=== PATIENT | male | born 1955 | race Caucasian/White ===

== ENCOUNTER → 2018-07-21 12:44 | Outpatient (CLI) | payer OTHER, SELFPAY ==
[2018-07-21 13:27] LABS: Hematocrit 43.3 % (41-53); Hemoglobin 14.8 g/dL (13.5-17.5); Mean Corpuscular HGB Conc 34.1 % (30-36); Mean Corpuscular Hemoglobin 32.9 PG (26-34); Mean Corpuscular Volume 96.4 fL (80-100); Platelet Count 236 X10^3/uL (150-400); Red Blood Cell Count 4.49 X10^6/uL (4.5-5.9); Red Cell Distribution Width 13.2 % (11.6-14.8); White Blood Cell Count 5.1 X10^3/uL (4.5-11.0)
[2018-07-21 13:53] LABS: Alanine Aminotransferase 33 IU/L (21-72); Albumin 4.6 g/dL (3.5-5.0); Albumin Globulin Ratio 1.4 (1.0-2.8); Alkaline Phosphatase 52 U/L (38-126); Aspartate Aminotransferase 27 IU/L (17-59); Bilirubin Total 0.4 mg/dL (0.2-1.3); Blood Urea Nitrogen 21 mg/dL (9-20); Calcium 9.4 mg/dL (8.4-10.2); Carbon Dioxide 27 mmol/L (22-32); Chloride 101 mmol/L (98-107); Cholesterol 218 mg/dL (140-199); Estimated Glomerular Filt Rate > 60.0 mL/min (>60); Globulin 3.4 g/dL (1.7-4.1); Glucose 135 mg/dL (80-110); HDL Cholesterol 41 mg/dL (40-60); HEMOLYSIS < 15 (0-50); LDL Cholesterol Calculated 131 mg/dL (<100); Potassium 4.2 mmol/L (3.4-5.1); Sodium 142 mmol/L (137-145); Triglycerides 228 mg/dL (35-150)
[2018-07-21 14:20] LABS: Prostate Specific Antigen Scrn 1.04 ng/mL (0.1-4.0)
== END ==
PROVIDERS: PCP Student in an Organized Health Care Education/Training Program; Visit Provider Student in an Organized Health Care Education/Training Program
DX: E55.9 Vitamin D deficiency, unspecified (principal); J30.2 Other seasonal allergic rhinitis; K21.9 Gastro-esophageal reflux disease without esophagitis; M79.7 Fibromyalgia; Z79.1 Long term (current) use of non-steroidal anti-inflammatories (NSAID); R39.11 Hesitancy of micturition; Z12.5 Encounter for screening for malignant neoplasm of prostate; Z13.220 Encounter for screening for lipoid disorders
CPT/HCPCS: 36415; 80053; 80061; 82306; 85027; G0103

== ENCOUNTER 2018-08-11 14:56 | Emergency (ER) | payer OTHER, SELFPAY ==
[2018-08-11 15:02] VITALS: BP 154/90; PULSE 76; RESP 15; TEMP 36.9; O2SAT 100; BMI 27.1
--- NOTE | 2018-08-11 15:58 | DI.CT.S_ITS ---
PROCEDURE: CT HEAD/BRAIN WO CON INDICATIONS: headache 2 weeks worsening TECHNIQUE: Noncontrast 4.5 mm thick angled axial sections acquired from the foramen magnum to the vertex, with coronal and sagittal reformats. For radiation dose reduction, the following was used: automated exposure control, adjustment of mA and/or kV according to patient size. COMPARISON: None. FINDINGS: Image quality: Excellent. CSF spaces: Basal cisterns are patent. No extra-axial fluid collections. The ventricles are symmetric in size and shape. Brain: No intracranial bleeds or masses. There is cerebral volume loss for age, with resultant ventricular and sulcal prominence. There are periventricular and deep white matter chronic small vessel ischemic changes. There is intracranial internal carotid artery atherosclerosis. Skull and face: Calvarium and visualized facial bones appear intact, without suspicious lesions. Sinuses: Visualized sinuses and mastoids are clear. IMPRESSION: No acute intracranial disease process. No intracranial hemorrhage. No abnormal intracranial mass. Dictated by: Gabriela Alvarez MD, PhD on 08/11/2018 at 16:16 Approved by: Gabriela Alvarez MD, PhD on 08/11/2018 at 16:18
[2018-08-11 16:22] LABS: Add Manual Diff / Slide Review NO; Basophils Percent Auto 0.5 % (0-2); Eosinophils Percent Auto 2.3 % (2-4); Hematocrit 41.2 % (41-53); Hemoglobin 14.1 g/dL (13.5-17.5); Lymphocytes Percent Auto 25.7 % (25-40); Mean Corpuscular HGB Conc 34.3 % (30-36); Mean Corpuscular Volume 96.2 fL (80-100); Monocytes Percent Auto 16.6 % (3-14); Neutrophils Absolute Auto 3500 /uL (3000-5900); Neutrophils Percent Auto 54.9 % (50-75); Platelet Count 280 X10^3/uL (150-400); Red Blood Cell Count 4.28 X10^6/uL (4.5-5.9); Red Cell Distribution Width 12.9 % (11.6-14.8); White Blood Cell Count 6.4 X10^3/uL (4.5-11.0)
[2018-08-11 16:29] VITALS: BP 154/90; PULSE 76
[2018-08-11] MEDS: SODIUM CHLORIDE 0.9% 1,000 ML 1000 ML IV (16:29)
[2018-08-11] MEDS: PROCHLORPERAZINE 10 MG/2 ML VIAL IV (16:29)
[2018-08-11] MEDS: diphenhydrAMINE 50 MG/ML VIAL 25 MG IV (16:30)
[2018-08-11] MEDS: KETOROLAC 60 MG/2 ML VIAL 30 MG IV (16:30)
[2018-08-11 16:33] LABS: BUN Creatinine Ratio 22.9 (6-22); Blood Urea Nitrogen 16 mg/dL (9-20); Calcium 9.3 mg/dL (8.4-10.2); Carbon Dioxide 30 mmol/L (22-32); Chloride 100 mmol/L (98-107); Estimated Glomerular Filt Rate > 60.0 mL/min (>60); Glucose 103 mg/dL (80-110); HEMOLYSIS 19 (0-50); Potassium 4.1 mmol/L (3.4-5.1); Sodium 139 mmol/L (137-145)
--- NOTE | 2018-08-11 16:43 | ED.HA ---
HPI - Headache General Chief Complaint: Headache Stated Complaint: Severe headache x2 weeks Time Seen by Provider: 08/11/18 15:47 Source: patient Mode of arrival: ambulatory Limitations: no limitations History of Present Illness HPI Narrative: The patient is a 8-year-old male who presents with headache. He does have a history of migraine headaches he gets bad once 3 to 4 times a year for which he takes magnesium sulfate for. He says that usually helps. This headache has been ongoing since right before Thanksgiving so for at least 2 weeks. It has never gone completely away it waxes and wanes. He initially was quite nauseated but no vomiting. He is quite sensitive to light the light seems to trigger it. He has been taking Tylenol and ibuprofen without any relief. MD Complaint: headache and migraine Related Data Home Medications Medication Instructions Recorded Confirmed ibuprofen [Advil Liqui-Gel] 2 - 4 tab PO DAILY #0 05/07/17 08/11/18 multivitamin [Multiple Vitamins] 1 tab PO DAILY #0 05/07/17 08/11/18 polyethylene glycol 3350 [Miralax] 17 g PO PRN PRN #0 05/07/17 08/11/18 cyclobenzaprine 2 tab PO BEDTIME 08/11/18 08/11/18 famotidine [Pepcid] 40 mg PO BEDTIME 08/11/18 08/11/18 fluticasone [Flonase Allergy 2 spray INTRANASAL DAILY PRN 08/11/18 08/11/18 Relief] hydrocodone-acetaminophen [[place]] 1 tab PO QDAY PRN 08/11/18 08/11/18 rizatriptan [Maxalt] 1 dose PO PRN PRN 08/11/18 08/11/18 Previous Rx's Medication Instructions Recorded atorvastatin 40 mg tablet 40 mg PO BEDTIME #30 tab 07/22/18 Allergies Allergy/AdvReac Type Severity Reaction Status Date / Time No Known Drug Allergies Allergy Verified 07/21/18 11:41 Review of Systems Review of Systems GENERAL: Denies chills, fatigue, malaise, fever, sweats, travel HEENT: Denies sinus pain, ear pain, sore throat, difficulty swallowing, neck pain RESPIRATORY: Denies dyspnea, cough, wheezing, hemoptysis, sputum. CARDIOVASCULAR: Denies chest pain, palpitations, orthopnea, edema GASTROINTESTINAL: Denies nausea, vomiting, abdominal pain, diarrhea, constipation, melena. : Denies dysuria, frequency, incontinence, hematuria, urinary retention, flank pain. MUSCULOSKELETAL: Denies weakness, joint pain, or bony pain SKIN: No rash, no erythema, no pruritus NEUROLOGIC: See HPI PSYCHIATRIC: No concerning psychosocial issues. 12 point review of systems is negative except for those stated above and HPI [facility] Medical History Abnormal CXR (chest x-ray) (Chronic 2016) Chronic back pain (Chronic 1983) Chronic rhinitis (Chronic 2009) Fibromyalgia (Chronic 1983) GERD (gastroesophageal reflux disease) (Chronic 2008) Hayfever (Chronic 1987) Hemorrhoids (Chronic 1999) IBS (irritable bowel syndrome) (Chronic 2003) Migraines (Chronic 2003) Muscle pain, myofascial (Chronic 1987) Plantar fasciitis (Chronic 1983) Pulmonary nodule (Chronic 2016) Sleep apnea (Chronic 2006) Precancerous lesion (Resolved 2015) Retinal detachment (Resolved 2008) Surgical History History of colonoscopy (Resolved ~2013) History of nasal surgery (Resolved 2008) History of nasal surgery (Resolved 2014) History of repair of retinal defect by laser photocoagulation (Resolved 2008) History of shoulder surgery (Resolved 2000) Family History Brother Age: 64 Hypothyroid Brother Age: 62 Hypothyroid Father Arthritis Stroke Rheumatoid arthritis Chronic pain Grandfather Heart disease Stroke Mother Age: 88 Hypothyroid Hypertension High cholesterol CKD (chronic kidney disease) Arthritis Grandfather Heart disease Stroke Sister Age: 58 Hypothyroid Sister Age: 53 Hypothyroid Grandmother No problems noted. Grandmother No problems noted. Social History Smoking Status: Never smoker alcohol intake: current substance use type: does not use Exam Initial Vital Signs Initial Vital Signs: Vital Signs Temperature 98.5 F 08/11/18 15:02 Pulse Rate 76 08/11/18 15:02 Respiratory Rate 15 08/11/18 15:02 Blood Pressure 154/90 H 08/11/18 15:02 Pulse Oximetry 100 08/11/18 15:02 GENERAL: Male sitting in slightly darkened room no acute distress HEENT: Head atraumatic,EOMI, pupils reactive, neck is supple no JVD CARDIOVASCULAR: Regular rate and rhythm without murmurs, rubs or gallops. RESPIRATORY: Breath sounds equal bilaterally, no wheezes rales or rhonchi. ABDOMEN: Soft, nontender. Normoactive bowel sounds all 4 quadrants. No guarding or rebound. EXTREMITIES: Normal range of motion, no clubbing or edema. Neurovascularly intact NEUROLOGICAL: Alert and oriented x4.Normal gait and speech. Cranial nerves II through XII grossly intact. Good [id number], good [id number], strength equal bilaterally, no dysarthria or aphasia, sensation in tact to soft touch bilaterally, no visual changes, no facial droop SKIN: Warm, dry, no laceration, no petechiae, no rashes or lesions. Scores NIH Stroke Scale Level of Conciousness: Alert, keenly responsive Ask month/age: Answers both questions correctly. Open/close eyes, close hand: Performs both tasks correctly Best gaze horizontal: Normal Visual lugo: No visual loss Facial palsy: Normal symetrical movement Left arm drift: No drift for full 10 sec Right arm drift: No drift for full 10 sec Left leg drift: No drift for full 10 sec Right leg drift: No drift for full 10 sec Limb ataxia: Absent Sensory on face/arms/legs: Normal, no sensory loss Best language: No aphasia, normal Dysarthria: Normal Extinction or inattention: No abnormality Total NIH Stroke scale score: 0 Course Orders Ordered: ED Orders 08/11/18 15:58 CT head/brain wo con Stat 08/11/18 16:10 Basic Metabolic Panel Stat Complete Blood Count AUTO DIFF Stat Discontinued Medications Diphenhydramine HCl (Benadryl) 25 mg IV NOW ONE Stop: 08/11/18 15:57 Last Admin: 08/11/18 16:30 Dose: 25 mg Sodium Chloride (Normal Saline 0.9%) 1,000 mls @ 1,000 mls/hr IV BOLUS ONE Stop: 08/11/18 16:55 Last Admin: 08/11/18 16:29 Dose: 1,000 mls/hr Ketorolac Tromethamine (Toradol) 30 mg IV NOW ONE Stop: 08/11/18 15:57 Last Admin: 08/11/18 16:30 Dose: 30 mg Prochlorperazine (Compazine) 10 mg IV NOW ONE Stop: 08/11/18 15:57 Last Admin: 08/11/18 16:29 Dose: 10 mg Vital Signs - 8 hr 08/11/18 15:02 08/11/18 16:29 08/11/18 17:24 Temperature 98.5 F Pulse Rate 76 76 67 Respiratory Rate 15 15 Blood Pressure 154/90 H 154/90 H 151/77 H Pulse Oximetry 100 MDM - Headache Lab Data Attestation: I reviewed the patient's lab results. Result diagrams: 08/11/18 16:10 08/11/18 16:10 Lab Results 08/11/18 08/11/18 Range/Units 16:10 16:10 WBC 6.4 (4.5-11.0) X10^3/uL RBC 4.28 L (4.5-5.9) X10^6/uL Hgb 14.1 (13.5-17.5) g/dL Hct 41.2 (41-53) % MCV 96.2 (80-100) fL MCH 33.0 (26-34) PG MCHC 34.3 (30-36) % RDW 12.9 (11.6-14.8) % Plt Count 280 (150-400) X10^3/uL Neut % (Auto) 54.9 (50-75) % Lymph % (Auto) 25.7 (25-40) % [place] % (Auto) 16.6 H (3-14) % Eos % (Auto) 2.3 (2-4) % Baso % (Auto) 0.5 (0-2) % Neut # (Auto) 3500 (7289-1159) /uL Sodium 139 (137-145) mmol/L Potassium 4.1 (3.4-5.1) mmol/L Chloride 100 (98-107) mmol/L Carbon Dioxide 30 (22-32) mmol/L BUN 16 (9-20) mg/dL Creatinine 0.70 (0.66-1.25) mg/dL Estimated GFR > 60.0 (>60) mL/min BUN/Creatinine Ratio 22.9 H (6-22) Glucose 103 (80-110) mg/dL Calcium 9.3 (8.4-10.2) mg/dL Imaging Data Chest x-ray: Radiologist's impression: PROCEDURE: CT HEAD/BRAIN WO CON INDICATIONS: headache 2 weeks worsening TECHNIQUE: Noncontrast 4.5 mm thick angled axial sections acquired from the foramen magnum to the vertex, with coronal and sagittal reformats. For radiation dose reduction, the following was used: automated exposure control, adjustment of mA and/or kV according to patient size. COMPARISON: None. FINDINGS: Image quality: Excellent. CSF spaces: Basal cisterns are patent. No extra-axial fluid collections. The ventricles are symmetric in size and shape. Brain: No intracranial bleeds or masses. There is cerebral volume loss for age, with resultant ventricular and sulcal prominence. There are periventricular and deep white matter chronic small vessel ischemic changes. There is intracranial internal carotid artery atherosclerosis. Skull and face: Calvarium and visualized facial bones appear intact, without suspicious lesions. Sinuses: Visualized sinuses and mastoids are clear. IMPRESSION: No acute intracranial disease process. No intracranial hemorrhage. No abnormal intracranial mass. Dictated by: Gabriela Alvarez MD, PhD on 08/11/2018 at 16:16 [facility] Narrative Medical decision making narrative: Patient's headache is overall feeling much better. He feels like he is ready and able to go home. He is given headache clinic information. Discharge Plan Departure Patient Disposition: Home Clinical Impression: Headache, migraine Discharge Date/Time: 08/11/18 17:25 Interventions: ED Discharge Assessment Last Done: 08/11/18 17:24 Instructions: Migraine -- Adult Activity Restrictions/Additional Instructions: *You have been diagnosed with migraine headache *What to do: Head CT and blood work within normal limits *Continue to take medications as directed *Follow up with your primary care provider in 2-3 days *Return to ER if you should have worsening headache, weakness, persistent vomiting or any new, worsening or concerning symptoms Prescriptions: No Action multivitamin [Multiple Vitamins] 1 EACH tablet 1 tab PO DAILY Qty: 0 RF: 0 polyethylene glycol 3350 [Miralax] 17 GM powder in packet 17 g PO PRN PRN (Reason: Constipation) Qty: 0 RF: 0 ibuprofen [Advil Liqui-Gel] 200 MG capsule 2 - 4 tab PO DAILY Qty: 0 RF: 0 atorvastatin 40 mg tablet 40 mg PO BEDTIME Qty: 30 RF: 5 cyclobenzaprine 10 MG tablet 2 tab PO BEDTIME RF: 0 hydrocodone-acetaminophen [[place]] 5-325 mg tablet 1 tab PO QDAY PRN (Reason: Breakthrough Pain) RF: 0 famotidine [Pepcid] 40 mg tablet 40 mg PO BEDTIME RF: 0 fluticasone [Flonase Allergy Relief] 9.9 ML spray,suspension 2 spray Intranasal DAILY PRN (Reason: Allergy Symptoms) RF: 0 rizatriptan [Maxalt] 10 mg Tablet 1 dose PO PRN PRN (Reason: Migraine Headache) RF: 0 Referrals: Matthew Guzman MD [Primary Care Provider] -
--- NOTE | 2018-08-11 16:49 | ED_ITS ---
HPI - Headache General Chief Complaint: Headache Stated Complaint: Severe headache x2 weeks Time Seen by Provider: 08/11/18 15:47 Source: patient Mode of arrival: ambulatory Limitations: no limitations History of Present Illness HPI Narrative: The patient is a 8-year-old male who presents with headache. He does have a history of migraine headaches he gets bad once 3 to 4 times a year for which he takes magnesium sulfate for. He says that usually helps. This headache has been ongoing since right before Thanksgiving so for at least 2 weeks. It has never gone completely away it waxes and wanes. He initially was quite nauseated but no vomiting. He is quite sensitive to light the light seems to trigger it. He has been taking Tylenol and ibuprofen without any relief. MD Complaint: headache and migraine Related Data Home Medications Medication Instructions Recorded Confirmed ibuprofen [Advil Liqui-Gel] 2 - 4 tab PO DAILY #0 05/07/17 08/11/18 multivitamin [Multiple Vitamins] 1 tab PO DAILY #0 05/07/17 08/11/18 polyethylene glycol 3350 [Miralax] 17 g PO PRN PRN #0 05/07/17 08/11/18 cyclobenzaprine 2 tab PO BEDTIME 08/11/18 08/11/18 famotidine [Pepcid] 40 mg PO BEDTIME 08/11/18 08/11/18 fluticasone [Flonase Allergy 2 spray INTRANASAL DAILY PRN 08/11/18 08/11/18 Relief] hydrocodone-acetaminophen [[place]] 1 tab PO QDAY PRN 08/11/18 08/11/18 rizatriptan [Maxalt] 1 dose PO PRN PRN 08/11/18 08/11/18 Previous Rx's Medication Instructions Recorded atorvastatin 40 mg tablet 40 mg PO BEDTIME #30 tab 07/22/18 Allergies Allergy/AdvReac Type Severity Reaction Status Date / Time No Known Drug Allergies Allergy Verified 07/21/18 11:41 Review of Systems Review of Systems GENERAL: Denies chills, fatigue, malaise, fever, sweats, travel HEENT: Denies sinus pain, ear pain, sore throat, difficulty swallowing, neck pain RESPIRATORY: Denies dyspnea, cough, wheezing, hemoptysis, sputum. CARDIOVASCULAR: Denies chest pain, palpitations, orthopnea, edema GASTROINTESTINAL: Denies nausea, vomiting, abdominal pain, diarrhea, constipation, melena. : Denies dysuria, frequency, incontinence, hematuria, urinary retention, flank pain. MUSCULOSKELETAL: Denies weakness, joint pain, or bony pain SKIN: No rash, no erythema, no pruritus NEUROLOGIC: See HPI PSYCHIATRIC: No concerning psychosocial issues. 12 point review of systems is negative except for those stated above and HPI [facility] Medical History Abnormal CXR (chest x-ray) (Chronic 2016) Chronic back pain (Chronic 1983) Chronic rhinitis (Chronic 2009) Fibromyalgia (Chronic 1983) GERD (gastroesophageal reflux disease) (Chronic 2008) Hayfever (Chronic 1987) Hemorrhoids (Chronic 1999) IBS (irritable bowel syndrome) (Chronic 2003) Migraines (Chronic 2003) Muscle pain, myofascial (Chronic 1987) Plantar fasciitis (Chronic 1983) Pulmonary nodule (Chronic 2016) Sleep apnea (Chronic 2006) Precancerous lesion (Resolved 2015) Retinal detachment (Resolved 2008) Surgical History History of colonoscopy (Resolved ~2013) History of nasal surgery (Resolved 2008) History of nasal surgery (Resolved 2014) History of repair of retinal defect by laser photocoagulation (Resolved 2008) History of shoulder surgery (Resolved 2000) Family History Brother Age: 64 Hypothyroid Brother Age: 62 Hypothyroid Father Arthritis Stroke Rheumatoid arthritis Chronic pain Grandfather Heart disease Stroke Mother Age: 88 Hypothyroid Hypertension High cholesterol CKD (chronic kidney disease) Arthritis Grandfather Heart disease Stroke Sister Age: 58 Hypothyroid Sister Age: 53 Hypothyroid Grandmother No problems noted. Grandmother No problems noted. Social History Smoking Status: Never smoker alcohol intake: current substance use type: does not use Exam Initial Vital Signs Initial Vital Signs: Vital Signs Temperature 98.5 F 08/11/18 15:02 Pulse Rate 76 08/11/18 15:02 Respiratory Rate 15 08/11/18 15:02 Blood Pressure 154/90 H 08/11/18 15:02 Pulse Oximetry 100 08/11/18 15:02 GENERAL: Male sitting in slightly darkened room no acute distress HEENT: Head atraumatic,EOMI, pupils reactive, neck is supple no JVD CARDIOVASCULAR: Regular rate and rhythm without murmurs, rubs or gallops. RESPIRATORY: Breath sounds equal bilaterally, no wheezes rales or rhonchi. ABDOMEN: Soft, nontender. Normoactive bowel sounds all 4 quadrants. No guarding or rebound. EXTREMITIES: Normal range of motion, no clubbing or edema. Neurovascularly intact NEUROLOGICAL: Alert and oriented x4.Normal gait and speech. Cranial nerves II through XII grossly intact. Good [id number], good [id number], strength equal bilaterally, no dysarthria or aphasia, sensation in tact to soft touch bilaterally, no visual changes, no facial droop SKIN: Warm, dry, no laceration, no petechiae, no rashes or lesions. Scores NIH Stroke Scale Level of Conciousness: Alert, keenly responsive Ask month/age: Answers both questions correctly. Open/close eyes, close hand: Performs both tasks correctly Best gaze horizontal: Normal Visual lugo: No visual loss Facial palsy: Normal symetrical movement Left arm drift: No drift for full 10 sec Right arm drift: No drift for full 10 sec Left leg drift: No drift for full 10 sec Right leg drift: No drift for full 10 sec Limb ataxia: Absent Sensory on face/arms/legs: Normal, no sensory loss Best language: No aphasia, normal Dysarthria: Normal Extinction or inattention: No abnormality Total NIH Stroke scale score: 0 Course Orders Ordered: ED Orders 08/11/18 15:58 CT head/brain wo con Stat 08/11/18 16:10 Basic Metabolic Panel Stat Complete Blood Count AUTO DIFF Stat Discontinued Medications Diphenhydramine HCl (Benadryl) 25 mg IV NOW ONE Stop: 08/11/18 15:57 Last Admin: 08/11/18 16:30 Dose: 25 mg Sodium Chloride (Normal Saline 0.9%) 1,000 mls @ 1,000 mls/hr IV BOLUS ONE Stop: 08/11/18 16:55 Last Admin: 08/11/18 16:29 Dose: 1,000 mls/hr Ketorolac Tromethamine (Toradol) 30 mg IV NOW ONE Stop: 08/11/18 15:57 Last Admin: 08/11/18 16:30 Dose: 30 mg Prochlorperazine (Compazine) 10 mg IV NOW ONE Stop: 08/11/18 15:57 Last Admin: 08/11/18 16:29 Dose: 10 mg Vital Signs - 8 hr 08/11/18 15:02 08/11/18 16:29 08/11/18 17:24 Temperature 98.5 F Pulse Rate 76 76 67 Respiratory Rate 15 15 Blood Pressure 154/90 H 154/90 H 151/77 H Pulse Oximetry 100 MDM - Headache Lab Data Attestation: I reviewed the patient's lab results. Result diagrams: 08/11/18 16:10 08/11/18 16:10 Lab Results 08/11/18 08/11/18 Range/Units 16:10 16:10 WBC 6.4 (4.5-11.0) X10^3/uL RBC 4.28 L (4.5-5.9) X10^6/uL Hgb 14.1 (13.5-17.5) g/dL Hct 41.2 (41-53) % MCV 96.2 (80-100) fL MCH 33.0 (26-34) PG MCHC 34.3 (30-36) % RDW 12.9 (11.6-14.8) % Plt Count 280 (150-400) X10^3/uL Neut % (Auto) 54.9 (50-75) % Lymph % (Auto) 25.7 (25-40) % [place] % (Auto) 16.6 H (3-14) % Eos % (Auto) 2.3 (2-4) % Baso % (Auto) 0.5 (0-2) % Neut # (Auto) 3500 (5160-1975) /uL Sodium 139 (137-145) mmol/L Potassium 4.1 (3.4-5.1) mmol/L Chloride 100 (98-107) mmol/L Carbon Dioxide 30 (22-32) mmol/L BUN 16 (9-20) mg/dL Creatinine 0.70 (0.66-1.25) mg/dL Estimated GFR > 60.0 (>60) mL/min BUN/Creatinine Ratio 22.9 H (6-22) Glucose 103 (80-110) mg/dL Calcium 9.3 (8.4-10.2) mg/dL Imaging Data Chest x-ray: Radiologist's impression: PROCEDURE: CT HEAD/BRAIN WO CON INDICATIONS: headache 2 weeks worsening TECHNIQUE: Noncontrast 4.5 mm thick angled axial sections acquired from the foramen magnum to the vertex, with coronal and sagittal reformats. For radiation dose reduction, the following was used: automated exposure control, adjustment of mA and/or kV according to patient size. COMPARISON: None. FINDINGS: Image quality: Excellent. CSF spaces: Basal cisterns are patent. No extra-axial fluid collections. The ventricles are symmetric in size and shape. Brain: No intracranial bleeds or masses. There is cerebral volume loss for age , with resultant ventricular and sulcal prominence. There are periventricular and deep white matter chronic small vessel ischemic changes. There is intracranial internal carotid artery atherosclerosis. Skull and face: Calvarium and visualized facial bones appear intact, without suspicious lesions. Sinuses: Visualized sinuses and mastoids are clear. IMPRESSION: No acute intracranial disease process. No intracranial hemorrhage. No abnormal intracranial mass. Dictated by: Gabriela Alvarez MD, PhD on 08/11/2018 at 16:16 [facility] Narrative Medical decision making narrative: Patient's headache is overall feeling much better. He feels like he is ready and able to go home. He is given headache clinic information. Discharge Plan Departure Patient Disposition: Home Clinical Impression: Headache, migraine Discharge Date/Time: 08/11/18 17:25 Interventions: ED Discharge Assessment Last Done: 08/11/18 17:24 Instructions: Migraine -- Adult Activity Restrictions/Additional Instructions: *You have been diagnosed with migraine headache *What to do: Head CT and blood work within normal limits *Continue to take medications as directed *Follow up with your primary care provider in 2-3 days *Return to ER if you should have worsening headache, weakness, persistent vomiting or any new, worsening or concerning symptoms Prescriptions: No Action multivitamin [Multiple Vitamins] 1 EACH tablet 1 tab PO DAILY Qty: 0 RF: 0 polyethylene glycol 3350 [Miralax] 17 GM powder in packet 17 g PO PRN PRN (Reason: Constipation) Qty: 0 RF: 0 ibuprofen [Advil Liqui-Gel] 200 MG capsule 2 - 4 tab PO DAILY Qty: 0 RF: 0 atorvastatin 40 mg tablet 40 mg PO BEDTIME Qty: 30 RF: 5 cyclobenzaprine 10 MG tablet 2 tab PO BEDTIME RF: 0 hydrocodone-acetaminophen [[place]] 5-325 mg tablet 1 tab PO QDAY PRN (Reason: Breakthrough Pain) RF: 0 famotidine [Pepcid] 40 mg tablet 40 mg PO BEDTIME RF: 0 fluticasone [Flonase Allergy Relief] 9.9 ML spray,suspension 2 spray Intranasal DAILY PRN (Reason: Allergy Symptoms) RF: 0 rizatriptan [Maxalt] 10 mg Tablet 1 dose PO PRN PRN (Reason: Migraine Headache) RF: 0 Referrals: Matthew Guzman MD [Primary Care Provider] -
[2018-08-11 17:24] VITALS: BP 151/77; PULSE 67; RESP 15
--- NOTE | 2018-08-24 08:56 | PC.NURSE ---
Normal Saline IV finished at 1700 08/11, 1000 mls infused.
== END 2018-08-11 17:25 | disposition home or self-care (01) ==
PROVIDERS: Emergency Provider Emergency Medicine; PCP Student in an Organized Health Care Education/Training Program
DX: G43.909 Migraine, unspecified, not intractable, without status migrainosus (principal)
CPT/HCPCS: 36591; 70450; 80048; 85025; 96361; 96374; 96375; 99283; 99284; J0780; J1200; J1885

== ENCOUNTER → 2018-10-28 14:35 | Outpatient (CLI) | payer OTHER, SELFPAY ==
[2018-10-28 15:12] LABS: Alanine Aminotransferase 38 IU/L (21-72); Albumin 4.5 g/dL (3.5-5.0); Albumin Globulin Ratio 1.4 (1.0-2.8); Alkaline Phosphatase 50 U/L (38-126); Aspartate Aminotransferase 26 IU/L (17-59); Bilirubin Total 0.5 mg/dL (0.2-1.3); Bilirubin Unconjugated 0.3 mg/dL (0.0-1.1); Cholesterol 128 mg/dL (140-199); Globulin 3.2 g/dL (1.7-4.1); HDL Cholesterol 33 mg/dL (40-60); HEMOLYSIS < 15 (0-50); LDL Cholesterol Calculated 50 mg/dL (<100); Total Protein 7.7 g/dL (6.3-8.2); Triglycerides 227 mg/dL (35-150)
== END ==
PROVIDERS: PCP Student in an Organized Health Care Education/Training Program; Visit Provider Student in an Organized Health Care Education/Training Program
DX: E78.2 Mixed hyperlipidemia (principal); Z79.899 Other long term (current) drug therapy
CPT/HCPCS: 36415; 80061; 80076

== ENCOUNTER → 2019-01-02 10:05 | Outpatient (CLI) | payer OTHER, SELFPAY ==
[2019-01-02 11:15] LABS: Cholesterol 212 mg/dL (140-199); HDL Cholesterol 38 mg/dL (40-60); LDL Cholesterol Calculated 136 mg/dL (<100); Triglycerides 192 mg/dL (35-150)
[2019-01-04 20:04] LABS: Fecal Immunochemical Test NOT DETECTED (NOT DETECTED)
== END ==
PROVIDERS: PCP Student in an Organized Health Care Education/Training Program; Visit Provider Student in an Organized Health Care Education/Training Program
DX: Z12.11 Encounter for screening for malignant neoplasm of colon (principal); E78.2 Mixed hyperlipidemia
CPT/HCPCS: 36415; 80061; 82274

== ENCOUNTER → 2019-06-07 08:23 | Outpatient (CLI) | payer OTHER, SELFPAY ==
--- NOTE | 2019-06-07 08:24 | DI.US.S_ITS ---
PROCEDURE: US ABDOMEN LIMITED INDICATIONS: RULE OUT RIGHT INGUINAL HERNIA TECHNIQUE: Real-time focused scanning was performed of the inguinal region, with image documentation. COMPARISON: Outside Facility, RG, CT ABDOMEN/PELVIS WITH CONTRAST, 11/29/2016, 10:08. FINDINGS: Ultrasound was performed of the right groin. A small right inguinal hernia is identified. The neck measures 1.4 cm. The hernia is reducible under ultrasound. No peristalsing bowel loop is identified within the hernia sac. IMPRESSION: Small reducible right inguinal hernia. Dictated by: Catia Gonzalez M.D. on 06/07/2019 at 10:24 Approved by: Catia Gonzalez M.D. on 06/07/2019 at 10:26
[2019-06-07 10:24] LABS: Add Manual Diff / Slide Review NO; Basophils Absolute Auto 0 /uL (0-100); Basophils Percent Auto 0.7 % (0-2); Eosinophils Absolute Auto 200 /uL (0-450); Eosinophils Percent Auto 3.7 % (2-4); Hematocrit 40.8 % (41-53); Lymphocytes Absolute Auto 1200 /uL (1100-4500); Mean Corpuscular HGB Conc 34.3 % (30-36); Mean Corpuscular Hemoglobin 33.1 PG (26-34); Mean Corpuscular Volume 96.4 fL (80-100); Monocytes Absolute Auto 800 /uL (0-900); Monocytes Percent Auto 15.9 % (3-14); Neutrophils Absolute Auto 2800 /uL (1500-7000); Neutrophils Percent Auto 55.7 % (50-75); Platelet Count 236 X10^3/uL (150-400); Red Blood Cell Count 4.24 X10^6/uL (4.5-5.9)
[2019-06-07 10:40] LABS: BUN Creatinine Ratio 21.3 (6-22); Blood Urea Nitrogen 17 mg/dL (9-20); Calcium 9.3 mg/dL (8.4-10.2); Carbon Dioxide 31 mmol/L (22-32); Chloride 100 mmol/L (98-107); Cholesterol 176 mg/dL (140-199); Estimated Glomerular Filt Rate > 60.0 mL/min (>60); Glucose 96 mg/dL (80-110); HDL Cholesterol 32 mg/dL (40-60); HEMOLYSIS < 15 (0-50); LDL Cholesterol Calculated 105 mg/dL (<100); Potassium 4.2 mmol/L (3.4-5.1); Sodium 137 mmol/L (137-145); Triglycerides 196 mg/dL (35-150)
== END ==
PROVIDERS: PCP Student in an Organized Health Care Education/Training Program; Visit Provider Student in an Organized Health Care Education/Training Program
DX: R10.31 Right lower quadrant pain (principal); K40.90 Unilateral inguinal hernia, without obstruction or gangrene, not specified as recurrent; E78.2 Mixed hyperlipidemia; Z01.810 Encounter for preprocedural cardiovascular examination; Z79.899 Other long term (current) drug therapy
CPT/HCPCS: 36415; 76705; 80048; 80061; 85025

== ENCOUNTER 2019-06-08 07:39 | Emergency (ER) | payer OTHER, SELFPAY ==
[2019-06-08 07:40] VITALS: BP 135/84; PULSE 75; RESP 20; TEMP 36.8; O2SAT 98; BMI 27.1
--- NOTE | 2019-06-08 08:08 | ED_ITS ---
HPI - Abdominal Pain General Chief Complaint: Abdominal Pain Stated Complaint: abd pain increasing x2 days Time Seen by Provider: 06/08/19 07:50 Source: patient and family Mode of arrival: Family Vehicle Limitations: no limitations History of Present Illness HPI narrative: Patient is a 63-year-old male who presents with right inguinal pain. He has a known inguinal hernia he had an ultrasound yesterday confirm a I small reducible inguinal hernia. However this morning he has had increased intense pain and swelling. He says in the past whenever he has stood up his hernia has bulged and when he lays down it goes and however it has never been this painful. He feels nauseous at times. He has a referral in to surgery but not for another month or so. He actually says the bulging did not start until 5 days ago. Today the bulging is not as bad as it has been but it is significantly more painful. MD complaint: abdominal pain Related Data Home Medications Medication Instructions Recorded Confirmed ibuprofen [Advil Liqui-Gel] 2 - 4 tab PO DAILY #0 05/07/17 06/06/19 multivitamin [Multiple Vitamins] 1 tab PO DAILY #0 05/07/17 06/06/19 polyethylene glycol 3350 [Miralax] 17 g PO PRN PRN #0 05/07/17 06/06/19 famotidine [Pepcid] 40 mg PO BEDTIME 08/11/18 06/08/19 Respironics DreamStation Auto BIPAP #1 ea 10/11/18 06/06/19 cetirizine 10 mg capsule 10 mg PO DAILY 10/11/18 06/06/19 azelastine 0.15 % (205.5 mcg) 2 spray NASAL BID 12/21/18 06/06/19 nasal spray montelukast 10 mg tablet 10 mg PO QPM 03/07/19 06/08/19 lovastatin 10 mg PO DAILY 06/08/19 06/08/19 Previous Rx's Medication Instructions Recorded rizatriptan 5 mg disintegrating 5 mg PO ONCE #14 tab 08/31/18 tablet fluticasone propionate 50 2 spray INTRANASAL BID PRN #9.9 09/09/18 mcg/actuation nasal gram spray,suspension methocarbamol 500 mg tablet 500 mg PO TID #90 tab 12/21/18 hydrocodone 5 mg-acetaminophen 325 1 tab PO QDAY PRN #30 tab 06/06/19 mg tablet hydrocodone-acetaminophen [Glenwood] 1 tab PO Q6H PRN #10 tab 06/08/19 lovastatin 20 mg tablet 20 mg PO DAILY #90 tab 06/08/19 Allergies Allergy/AdvReac Type Severity Reaction Status Date / Time No Known Drug Allergies Allergy Verified 06/06/19 13:56 Review of Systems Review of Systems Narrative: GENERAL: Denies chills, fatigue, malaise, fever, sweats, travel HEENT: Denies sinus pain, ear pain, sore throat, difficulty swallowing, neck pain RESPIRATORY: Denies dyspnea, cough, wheezing, hemoptysis, sputum. CARDIOVASCULAR: Denies chest pain, palpitations, orthopnea, edema GASTROINTESTINAL: See HPI : Denies dysuria, frequency, incontinence, hematuria, urinary retention, flank pain. MUSCULOSKELETAL: Denies weakness, joint pain, or bony pain SKIN: No rash, no erythema, no pruritus NEUROLOGIC: Denies weakness, dizziness, headache, numbness, change in speech, confusion PSYCHIATRIC: No concerning psychosocial issues. 12 point review of systems is negative except for those stated above and HPI PFSH Medical History Abnormal CXR (chest x-ray) (Chronic 2016) Chronic back pain (Chronic 1983) Chronic rhinitis (Chronic 2009) Fatigue (Chronic) Fibromyalgia (Chronic 1983) GERD (gastroesophageal reflux disease) (Chronic 2008) Hayfever (Chronic 1987) Hemorrhoids (Chronic 1999) IBS (irritable bowel syndrome) (Chronic 2003) Migraines (Chronic 2003) Muscle pain, myofascial (Chronic 1987) Nocturnal hypoxemia (Chronic) Obstructive sleep apnea syndrome (Chronic 05/07/17) Plantar fasciitis (Chronic 1983) Precancerous lesion (Resolved 2015) Pulmonary nodule (Chronic 2016) Retinal detachment (Resolved 2008) Sleep apnea (Chronic 2006) Surgical History History of colonoscopy (Resolved ~2013) History of nasal surgery (Resolved 2008) History of nasal surgery (Resolved 2014) History of repair of retinal defect by laser photocoagulation (Resolved 2008) History of shoulder surgery (Resolved 2000) Family History Brother Age: 65 Hypothyroid Brother Age: 63 Hypothyroid Father Arthritis Stroke Rheumatoid arthritis Chronic pain Grandfather Heart disease Stroke Mother Age: 89 Hypothyroid Hypertension High cholesterol CKD (chronic kidney disease) Arthritis Grandfather Heart disease Stroke Sister Age: 59 Hypothyroid Sister Age: 54 Hypothyroid Grandmother No problems noted. Grandmother No problems noted. Social History Smoking Status: Never smoker alcohol intake: current substance use type: does not use Family History Brother Age: 65 Hypothyroid Brother Age: 63 Hypothyroid Father Arthritis Stroke Rheumatoid arthritis Chronic pain Grandfather Heart disease Stroke Mother Age: 89 Hypothyroid Hypertension High cholesterol CKD (chronic kidney disease) Arthritis Grandfather Heart disease Stroke Sister Age: 59 Hypothyroid Sister Age: 54 Hypothyroid Grandmother No problems noted. Grandmother No problems noted. Social History Smoking Status: Never smoker alcohol intake: current substance use type: does not use Exam Initial Vital Signs Initial Vital Signs: Vital Signs Temperature 98.2 F 06/08/19 07:40 Pulse Rate 75 06/08/19 07:40 Respiratory Rate 20 06/08/19 07:40 Blood Pressure 135/84 06/08/19 07:40 Pulse Oximetry 98 06/08/19 07:40 GENERAL: Alert male appears uncomfortable and in distress. HEENT: Head atraumatic,EOMI, pupils reactive, face symmetric CARDIOVASCULAR: Regular rate and rhythm without murmurs, rubs or gallops. RESPIRATORY: Breath sounds equal bilaterally, no wheezes rales or rhonchi. Mild swelling in right inguinal area tender to touch ABDOMEN: Soft, nontender. Normoactive bowel sounds all 4 quadrants. No guarding or rebound. EXTREMITIES: Normal range of motion, no clubbing or edema. Neurovascularly intact NEUROLOGICAL: Alert and oriented x4.Normal gait and speech. Cranial nerves II through XII grossly intact. SKIN: Warm, dry, no laceration, no petechiae, no rashes or lesions. Course Orders Ordered: ED Orders 06/08/19 08:06 Complete Blood Count AUTO DIFF Stat Comprehensive Metabolic Panel Stat Lipase Stat 06/08/19 09:07 CT abdomen pelvis w con Stat Discontinued Medications Hydromorphone HCl (Dilaudid) 0.5 mg IV NOW ONE Stop: 06/08/19 08:07 Last Admin: 06/08/19 08:37 Dose: 0.5 mg Documented by: MIGNON Vital Signs Vital signs: Vital Signs - 8 hr 06/08/19 07:40 06/08/19 08:55 06/08/19 10:00 Temperature 98.2 F Pulse Rate 75 58 L 67 Respiratory Rate 20 18 16 Blood Pressure 135/84 Blood Pressure [Left Arm] 125/75 106/85 Pulse Oximetry 98 99 99 06/08/19 11:15 Temperature Pulse Rate 62 Respiratory Rate 15 Blood Pressure Blood Pressure [Left Arm] 145/81 H Pulse Oximetry 100 MDM - Abdominal Pain Lab Data Attestation: I reviewed the patient's lab results. Result diagrams: 06/08/19 08:06 06/08/19 08:06 Labs: Lab Results 06/08/19 06/08/19 Range/Units 08:06 08:06 WBC 5.1 (4.5-11.0) X10^3/uL RBC 4.25 L (4.5-5.9) X10^6/uL Hgb 14.2 (13.5-17.5) g/dL Hct 40.7 L (41-53) % MCV 95.8 (80-100) fL MCH 33.4 (26-34) PG MCHC 34.9 (30-36) % RDW 12.9 (11.6-14.8) % Plt Count 216 (150-400) X10^3/uL Neut % (Auto) 52.0 (50-75) % Lymph % (Auto) 25.6 (25-40) % Pitt % (Auto) 17.5 H (3-14) % Eos % (Auto) 4.3 H (2-4) % Baso % (Auto) 0.6 (0-2) % Neut # (Auto) 2600 (5421-4340) /uL Lymph # (Auto) 1300 (9252-3868) /uL Pitt # (Auto) 900 (0-900) /uL Eos # (Auto) 200 (0-450) /uL Baso # (Auto) 0 (0-100) /uL Sodium 137 (137-145) mmol/L Potassium 4.2 (3.4-5.1) mmol/L Chloride 100 (98-107) mmol/L Carbon Dioxide 28 (22-32) mmol/L BUN 18 (9-20) mg/dL Creatinine 0.80 (0.66-1.25) mg/dL Estimated GFR > 60.0 (>60) mL/min BUN/Creatinine Ratio 22.5 H (6-22) Glucose 93 (80-110) mg/dL Calcium 8.8 (8.4-10.2) mg/dL Total Bilirubin 0.6 (0.2-1.3) mg/dL AST 29 (17-59) IU/L ALT 26 (21-72) IU/L Alkaline Phosphatase 45 (38-126) U/L Total Protein 7.4 (6.3-8.2) g/dL Albumin 4.1 (3.5-5.0) g/dL Globulin 3.3 (1.7-4.1) g/dL Albumin/Globulin Ratio 1.2 (1.0-2.8) Lipase 66 (23-300) U/L Imaging Data CT scan - abdomen: Radiologist's impression: PROCEDURE: CT ABDOMEN PELVIS W CON INDICATIONS: RIGHT LOWER QUAD PAIN TECHNIQUE: After the administration of intravenous contrast, 5 mm thick sections acquired from the diaphragm to the symphysis. 5 mm coronal and sagittal reformats were acquired. For radiation dose reduction, the following was used: automated exposure control, adjustment of mA and/or kV according to patient size. COMPARISON: [facility], CT, THORAX WITH CONTRAST, 05/18/2017, 8:35. FINDINGS: Image quality: Excellent. ABDOMEN: Lung bases: 5 mm nodule seen in the posterior left lower lobe on image 5 series 3 which is grossly unchanged. Solid organs: Hepatic steatosis. Gallbladder negative. Biliary system is non dilated. Pancreas enhances normally. Spleen is normal in size and enhancement. No adrenal nodules. Kidneys demonstrate normal size and enhancement, without hydronephrosis. Subcentimeter presumed left renal cyst however too small to characterize accurately Peritoneum and bowel: Bowel loops demonstrate normal wall thickness and caliber. No free fluid or air. Moderate stool. The appendix is within normal limits Nodes and vessels: No retroperitoneal or mesenteric adenopathy by size criteria. Aorta and inferior vena cava are normal in size. Miscellaneous: No ventral hernias. PELVIS: Genitourinary: Bladder wall thickness is normal. Miscellaneous: Small bilateral fat containing inguinal hernias. No pelvic adenopathy or Bones: No suspicious bony lesions. No vertebral body compression fractures. Diffuse spondylosis IMPRESSION: Normal appendix. No acute process identified. Moderate stool. Hepatic steatosis. Small bilateral fat-containing inguinal hernias. Dictated by: Nabor Beckham M.D. on 06/08/2019 at 8:56 Approved by: Nabor Beckham M.D. on 06/08/2019 at 9:08 [facility] Narrative Medical decision making narrative: Dr. Veras the called and updated patient's symptoms test results. He is in the ED to see and evaluate patient. At this time patient can follow up his surgery has been moved to next week. Pain control medication as outpatient. Discharge Plan Departure Patient Disposition: Home Clinical Impression: Inguinal hernia Qualifiers: Obstruction and gangrene presence: without obstruction or gangrene Laterality: bilateral Recurrence: non-recurrent Qualified Code(s): K40.20 - Bilateral inguinal hernia, without obstruction or gangrene, not specified as recurrent Discharge Date/Time: 06/08/19 11:19 Instructions: Groin Hernia -- Adult Activity Restrictions/Additional Instructions: *You have been diagnosed with inguina hernia *What to do: Follow-up with Dr. veras is arranged for next week *Continue to take medications as directed Glenwood 1 tablet every 6 hours if needed for severe pain *Follow up with your primary care provider in 2-3 days *Return to ER if you should have increasing pain and no bowel movements per sistent vomiting inability to push hernia in or any new, worsening or concerning symptoms CONTROLLED SUBSTANCE DISCHARGE (Narcotoic/benzodiazepine/Flexeril/Phenergan) 1. You have been prescribed narcotic medications, it does have acetaminophen/Tylenol/paracetamol in it so do not take extra Tylenol or Tylenol containing products 2. Please understand that we cannot provide further refills of narcotics, benzodiazepines or controlled substances through the ED and her pain management will need to be through your provider. 3. While on these medications you cannot drive or operate heavy machinery. 4. You cannot sign legal documents or perform any duties such as this. 5. As long as you're taking opiate pain medications he should also be taking a stool softener such as Colace, Dulcolax, MiraLAX or prune juice, to help avoid constipation. Prescriptions: New hydrocodone-acetaminophen [Glenwood] 5-325 mg tablet 1 tab PO Q6H PRN (Reason: pain) Qty: 10 RF: 0 No Action multivitamin [Multiple Vitamins] 1 EACH tablet 1 tab PO DAILY Qty: 0 RF: 0 polyethylene glycol 3350 [Miralax] 17 GM powder in packet 17 g PO PRN PRN (Reason: Constipation) Qty: 0 RF: 0 ibuprofen [Advil Liqui-Gel] 200 MG capsule 2 - 4 tab PO DAILY Qty: 0 RF: 0 lovastatin 20 mg tablet 20 mg PO DAILY Qty: 90 RF: 1 rizatriptan 5 mg tablet,disintegrating 5 mg PO ONCE Qty: 14 RF: 5 fluticasone propionate [Flonase Allergy Relief] 50 mcg/actuation spray,suspension 2 spray Intranasal BID PRN (Reason: Allergy Symptoms) Qty: 9.9 RF: 5 methocarbamol 500 mg tablet 500 mg PO TID Qty: 90 RF: 1 azelastine 0.15 % (205.5 mcg) spray,non-aerosol 2 spray NASAL BID RF: 0 hydrocodone-acetaminophen [Glenwood] 5-325 mg tablet 1 tab PO QDAY PRN (Reason: Breakthrough Pain) Qty: 30 RF: 0 famotidine [Pepcid] 40 mg tablet 40 mg PO BEDTIME RF: 0 lovastatin 10 mg Tablet 10 mg PO DAILY RF: 0 cetirizine [Zyrtec] 10 mg capsule 10 mg PO DAILY RF: 0 (DME) Respironics DreamStation Auto BIPAP Qty: 1 RF: 0 montelukast 10 mg tablet 10 mg PO QPM RF: 0 Referrals: Matthew Guzman MD [Primary Care Provider] - Fabiano Veras MD [Physician] -
[2019-06-08 08:23] LABS: Add Manual Diff / Slide Review NO; Basophils Absolute Auto 0 /uL (0-100); Basophils Percent Auto 0.6 % (0-2); Eosinophils Absolute Auto 200 /uL (0-450); Eosinophils Percent Auto 4.3 % (2-4); Hematocrit 40.7 % (41-53); Hemoglobin 14.2 g/dL (13.5-17.5); Lymphocytes Absolute Auto 1300 /uL (1100-4500); Lymphocytes Percent Auto 25.6 % (25-40); Mean Corpuscular HGB Conc 34.9 % (30-36); Mean Corpuscular Hemoglobin 33.4 PG (26-34); Mean Corpuscular Volume 95.8 fL (80-100); Monocytes Absolute Auto 900 /uL (0-900); Monocytes Percent Auto 17.5 % (3-14); Neutrophils Absolute Auto 2600 /uL (1500-7000); Platelet Count 216 X10^3/uL (150-400); Red Blood Cell Count 4.25 X10^6/uL (4.5-5.9); Red Cell Distribution Width 12.9 % (11.6-14.8); White Blood Cell Count 5.1 X10^3/uL (4.5-11.0)
[2019-06-08 08:29] LABS: Alanine Aminotransferase 26 IU/L (21-72); Albumin 4.1 g/dL (3.5-5.0); Albumin Globulin Ratio 1.2 (1.0-2.8); Alkaline Phosphatase 45 U/L (38-126); Aspartate Aminotransferase 29 IU/L (17-59); BUN Creatinine Ratio 22.5 (6-22); Bilirubin Total 0.6 mg/dL (0.2-1.3); Blood Urea Nitrogen 18 mg/dL (9-20); Calcium 8.8 mg/dL (8.4-10.2); Carbon Dioxide 28 mmol/L (22-32); Chloride 100 mmol/L (98-107); Estimated Glomerular Filt Rate > 60.0 mL/min (>60); Globulin 3.3 g/dL (1.7-4.1); Glucose 93 mg/dL (80-110); HEMOLYSIS 20 (0-50); Lipase 66 U/L (23-300); Potassium 4.2 mmol/L (3.4-5.1); Sodium 137 mmol/L (137-145); Total Protein 7.4 g/dL (6.3-8.2)
[2019-06-08] MEDS: HYDROMORPHONE 0.5 MG INJ IV (08:37)
[2019-06-08 08:55] VITALS: BP 125/75; PULSE 58; RESP 18; O2SAT 99
--- NOTE | 2019-06-08 09:07 | DI.CT.S_ITS ---
PROCEDURE: CT ABDOMEN PELVIS W CON INDICATIONS: RIGHT LOWER QUAD PAIN TECHNIQUE: After the administration of intravenous contrast, 5 mm thick sections acquired from the diaphragm to the symphysis. 5 mm coronal and sagittal reformats were acquired. For radiation dose reduction, the following was used: automated exposure control, adjustment of mA and/or kV according to patient size. COMPARISON: [facility], CT, THORAX WITH CONTRAST, 05/18/2017, 8:35. FINDINGS: Image quality: Excellent. ABDOMEN: Lung bases: 5 mm nodule seen in the posterior left lower lobe on image 5 series 3 which is grossly unchanged. Solid organs: Hepatic steatosis. Gallbladder negative. Biliary system is non dilated. Pancreas enhances normally. Spleen is normal in size and enhancement. No adrenal nodules. Kidneys demonstrate normal size and enhancement, without hydronephrosis. Subcentimeter presumed left renal cyst however too small to characterize accurately Peritoneum and bowel: Bowel loops demonstrate normal wall thickness and caliber. No free fluid or air. Moderate stool. The appendix is within normal limits Nodes and vessels: No retroperitoneal or mesenteric adenopathy by size criteria. Aorta and inferior vena cava are normal in size. Miscellaneous: No ventral hernias. PELVIS: Genitourinary: Bladder wall thickness is normal. Miscellaneous: Small bilateral fat containing inguinal hernias. No pelvic adenopathy or Bones: No suspicious bony lesions. No vertebral body compression fractures. Diffuse spondylosis IMPRESSION: Normal appendix. No acute process identified. Moderate stool. Hepatic steatosis. Small bilateral fat-containing inguinal hernias. Dictated by: Nabor Beckham M.D. on 06/08/2019 at 8:56 Approved by: Nabor Beckham M.D. on 06/08/2019 at 9:08
[2019-06-08 10:00] VITALS: BP 106/85; PULSE 67; RESP 16; O2SAT 99
[2019-06-08 11:15] VITALS: BP 145/81; PULSE 62; RESP 15; O2SAT 100
== END 2019-06-08 11:19 | disposition home or self-care (01) ==
PROVIDERS: Emergency Provider Emergency Medicine; PCP Student in an Organized Health Care Education/Training Program
DX: K40.20 Bilateral inguinal hernia, without obstruction or gangrene, not specified as recurrent (principal); R10.31 Right lower quadrant pain
CPT/HCPCS: 36415; 74177; 80053; 83690; 85025; 96374; 99283; 99284; J1170; Q9967

== ENCOUNTER 2019-06-26 06:33 | Day surgery (SDC) | payer OTHER, SELFPAY ==
[2019-06-09 11:34] VITALS: BMI 28.1
[2019-06-26] VITALS (13 sets, daily range): BP systolic 93–124; BP diastolic 59–77; PULSE 66–86; RESP 9–17; TEMP 36.2–36.7; O2SAT 94–99; BMI 27.4
[2019-06-26] MEDS: LACTATED RINGERS 1,000 ML 42 ML IV ×2 (07:15→09:54)
[2019-06-26] MEDS: GABAPENTIN 300 MG CAPSULE PO (07:45)
--- NOTE | 2019-06-26 07:47 | PM.PREOP ---
Pre-operative Note Interval Note History & Physical reviewed/Exam performed by Physician: Yes Changes to H&P: No
[2019-06-26] MEDS: APREPITANT 40 MG CAPSULE PO (07:48)
[2019-06-26] MEDS: CEFAZOLIN 2 GM/100 ML FROZ.PIGGY IV (07:55)
--- NOTE | 2019-06-26 08:26 | SUR.OPER ---
Supine on padded OR bed, head on pillow, arms secured on padded arm boards at <90 degrees abduction, legs uncrossed, safety belt at thigh, tape over blanket over lower legs.
[2019-06-26] MEDS: BUPIVACAINE 0.5% (PF) VIAL 30 ML INJ (08:34)
--- NOTE | 2019-06-26 08:43 | SUR.OPER ---
Tegaderm placed over reddened raised area approximately the size of a pencil eraser on the right groin area by Dr. Palma before incision.
[2019-06-26] MEDS: ACETAMINOPHEN IV 1,000 MG/100 ML VIAL 400 MG IV (09:49)
--- NOTE | 2019-06-26 10:23 | PM.OP.1 ---
Operative Date/Time/Diagnoses Date of procedure: 06/26/19 Time of procedure: 10:24 Pre-op diagnosis: Bilateral inguinal hernias reducible Post-op diagnosis: same (Principally indirect components but with some direct as well) Procedure & Clinicians Procedure: Repair with plug and patch technique Same procedure as scheduled: Yes Indications: Right-sided symptomatic hernia. Left-sided hernia. Surgeon: Roni Palma Click Yes if Unassisted: Yes Anesthesia Type: General Operative Notes Findings: Large sac on the right side. Weakness of the floor. On the left a much smaller sac. Weakness of the floor. Closure Type: primary Specimen(s): none sent Prosthetic devices, grafts, tissues, transplants, or devices: Mesh Estimated Blood Loss (mL): 10 Blood products transfused: none Procedure in detail: The patient was placed supine on the operating room table and underwent general endotracheal anesthesia. He was prepped and draped in the usual fashion. He had a small localized skin inflammation at a hair follicle in the right lower abdomen which was cleaned and covered with a small Tegaderm to exclude it from any possibility, should it begin weeping, of weeping into the wound. A transverse incision was made overlying the external ring well away from this inflamed area and carried down to the level of the external oblique. The external oblique was opened parallel with its fibers through the external ring. The cord structures were elevated. The cremaster was opened proximally and search made for an indirect sac. What initially appeared to be a large lipoma of the cord was from surrounding structures and dissected proximally the level the deep epigastric vessels. Because of its size I chose to explore this fat to make sure this was not actually hernia sac with a large amount of fat in its wall. That actually is what I found. The fat was on the outer surface of the peritoneal lining. It did not appear to be attached to any structures. I used a pursestring to suture ligated at the level the deep epigastric vessels and then an outside tie over this to secure it. The distal portion was removed. The stump was allowed to retract and a large plug was placed in the defect. It was tacked into place with interrupted 0 Ethibond suture. The cremaster was closed with 3 0 Vicryl. The floor was examined and was found to be somewhat weakened. A patch was placed across the floor and tacked at the pubic tubercle, the posterior lamella of the anterior rectus sheath, the ilioinguinal ligament, and superior lateral to the cord. The opening was modified as necessary to prevent tight constriction of the cord. Sutures of 0 Ethibond were used to secure the mesh. The external oblique was closed with a running 3 0 Vicryl. The subcu was closed with interrupted 4 0 Vicryl. The skin was closed with a running 4 0 Vicryl subcuticular stitch Attention was then turned to the left side. A mirror incision was created and a mirror operation performed. The findings were actually very similar except the size of the indirect sac was much smaller than on the right. It was handled in an identical fashion with suture ligature of a 2 0 silk. This side required a small plug and patch to be used. It was tacked into place in an identical fashion to the opposite side. Closure was done in identical fashion taking great care not to incorporate nervous structures into my closure. Mastisol and Steri-Strips were applied to both wounds after injecting additional local anesthetic.. Dressing was applied. Antibiotic ointment was placed over the small inflamed area of skin. The patient was awakened, and the patient was taken to the recovery area in good condition. Complications: none Post-operative Condition: stable Disposition: PACU Plan for aftercare: Follow-up in the office
[2019-06-26] MEDS: fentaNYL 100 MCG/2 ML INJ 50 MCG IV (10:47)
[2019-06-26] MEDS: OXYCODONE IR 5 MG TABLET PO ×2 (10:48→11:16)
--- NOTE | 2019-06-26 11:01 | SUR.PHASEI ---
Stable PACU stay, medicated with fentanyl and oxycodone. Dr Palma spoke with pt at length at bedside.
--- NOTE | 2019-06-26 11:08 | SUR.PHASEI ---
Prescriptions given to to get filled, report to Rosendo Hsu RN
--- NOTE | 2019-06-26 11:55 | SUR.PHASEII ---
pt tolerating juice and apple sauce, d/c instructions reviewed at length with pt and with verbalized understanding.
== END 2019-06-26 12:15 | disposition home or self-care (01) ==
PROVIDERS: PCP Student in an Organized Health Care Education/Training Program; Visit Provider Specialist
PROC: (CPT 49505; principal; 2019-06-26 07:45)
DX: K40.20 Bilateral inguinal hernia, without obstruction or gangrene, not specified as recurrent (principal)
CPT/HCPCS: 49505; C1781; J0131; J0330; J0690; J1100; J1170; J1885; J2250; J2405; J2704; J3010; J8501

== ENCOUNTER → 2019-10-13 08:23 | Outpatient (CLI) | payer OTHER, SELFPAY ==
[2019-10-13 10:00] LABS: Cholesterol 190 mg/dL (140-199); HDL Cholesterol 39 mg/dL (40-60); LDL Cholesterol Calculated 125 mg/dL (<100); Triglycerides 128 mg/dL (35-150)
[2019-10-13 10:27] LABS: Prostate Specific Antigen Scrn 1.32 ng/mL (0.1-4.0)
== END ==
PROVIDERS: PCP Student in an Organized Health Care Education/Training Program; Referring Provider Student in an Organized Health Care Education/Training Program; Visit Provider Student in an Organized Health Care Education/Training Program
DX: Z12.5 Encounter for screening for malignant neoplasm of prostate (principal); E78.2 Mixed hyperlipidemia
CPT/HCPCS: 36415; 80061; G0103

== ENCOUNTER → 2019-10-17 09:06 | Outpatient (CLI) | payer OTHER, SELFPAY ==
--- NOTE | 2019-10-17 09:10 | DI.CT.S_ITS ---
PROCEDURE: CT ABDOMEN PELVIS WO CON INDICATIONS: Bilateral groin pain 3 months after inguinal hernia repair TECHNIQUE: Noncontrast 5 mm thick sections acquired from the diaphragms to the symphysis. 5 mm coronal and sagittal reformats were then performed. For radiation dose reduction, the following was used: automated exposure control, adjustment of mA and/or kV according to patient size. COMPARISON: [facility], CT, CT ABDOMEN PELVIS W CON, 06/08/2019, 8:39. FINDINGS: Image quality: Excellent. ABDOMEN: Lung bases: Stable 5 mm left lung base nodule. Stable 4 mm peripheral right lower lobe pulmonary nodule. Heart size is normal. Solid organs: Liver is normal in size. Gallbladder is unremarkable. Pancreas is normal in contours. Spleen is normal in size. No adrenal nodules. Kidneys are normal in size, without hydronephrosis or nephrolithiasis. Redemonstration of subcentimeter left renal upper pole hypodensity presumably a cyst. Peritoneum and bowel: Unenhanced bowel loops demonstrate normal wall thickness and caliber. No free fluid or air. Nodes and vessels: No retroperitoneal or mesenteric adenopathy by size criteria. Aorta and inferior vena cava are normal in caliber. Miscellaneous: There is a small fat-containing umbilical hernia without acute inflammation. PELVIS: Genitourinary: Bladder wall thickness is normal. Miscellaneous: No pelvic adenopathy. Postoperative changes from interval bilateral inguinal hernia repair. No CT evidence for recurrent inguinal hernias. No adjacent inflammatory changes. Bones: No suspicious bony lesions. No vertebral body compression fractures. IMPRESSION: 1. CT abdomen and pelvis without acute abnormalities. 2. Postoperative changes from interval bilateral inguinal hernia repair. No CT evidence for recurrent inguinal hernias. 3. Stable appearance of 5 mm left lung base pulmonary nodule and 4 mm right lower lobe pulmonary nodule. Dictated by: Twin Sotomayor M.D. on 10/17/2019 at 12:36 Approved by: Twin Sotomayor M.D. on 10/17/2019 at 12:53
== END ==
PROVIDERS: PCP Student in an Organized Health Care Education/Training Program; Referring Provider Surgery; Visit Provider Surgery
DX: R10.31 Right lower quadrant pain (principal); R10.32 Left lower quadrant pain; R91.8 Other nonspecific abnormal finding of lung field; K42.9 Umbilical hernia without obstruction or gangrene; M79.2 Neuralgia and neuritis, unspecified; Z98.890 Other specified postprocedural states; Z87.19 Personal history of other diseases of the digestive system
CPT/HCPCS: 74176

== ENCOUNTER → 2020-07-19 14:53 | Outpatient (CLI) | payer OTHER, SELFPAY ==
[2020-07-19 15:01] LABS: Bacteria Urine None Seen; RBC Urine None Seen (0-5/HPF); WBC Urine None Seen (0-5/HPF)
[2020-07-19 15:19] LABS: Add Manual Diff / Slide Review NO; Basophils Absolute Auto 0 /uL (0-100); Basophils Percent Auto 0.4 % (0-2); Eosinophils Absolute Auto 100 /uL (0-450); Eosinophils Percent Auto 1.9 % (2-4); Hematocrit 43.9 % (41-53); Lymphocytes Absolute Auto 1100 /uL (1100-4500); Lymphocytes Percent Auto 15.9 % (25-40); Mean Corpuscular HGB Conc 34.2 % (30-36); Mean Corpuscular Hemoglobin 33.5 PG (26-34); Mean Corpuscular Volume 97.9 fL (80-100); Monocytes Absolute Auto 1100 /uL (0-900); Monocytes Percent Auto 15.6 % (3-14); Neutrophils Absolute Auto 4500 /uL (1500-7000); Neutrophils Percent Auto 66.2 % (50-75); Platelet Count 281 X10^3/uL (150-400); Red Blood Cell Count 4.48 X10^6/uL (4.5-5.9); Red Cell Distribution Width 13.4 % (11.6-14.8); White Blood Cell Count 6.8 X10^3/uL (4.5-11.0)
[2020-07-19 15:20] LABS: Appearance Urine UA CLEAR; Bilirubin Urine UA NEGATIVE (NEGATIVE); Color Urine UA YELLOW; Glucose Urine UA NEGATIVE (Negative); Ketones Urine UA NEGATIVE (NEGATIVE); Leukocyte Esterase Urine UA NEGATIVE (NEGATIVE); Nitrite Urine UA NEGATIVE (Negative); Occult Blood Urine UA NEGATIVE (Negative); Protein Urine UA NEGATIVE (Negative); Urobilinogen Urine UA 0.2 E.U./dL (0.2)
[2020-07-19 15:26] LABS: Amorphous Sediment Urine 2+; Culture Indicated Urine Cult Not Indicated
[2020-07-19 15:36] LABS: BUN Creatinine Ratio 24.7 (6-22); Blood Urea Nitrogen 19 mg/dL (9-20); Calcium 9.8 mg/dL (8.4-10.2); Carbon Dioxide 32 mmol/L (22-32); Chloride 100 mmol/L (98-107); Creatine Kinase 140 U/L (55-170); Estimated Glomerular Filt Rate > 60.0 mL/min (>60); Glucose 118 mg/dL (80-110); HEMOLYSIS < 15 (0-50); Magnesium 2.1 mg/dL (1.6-2.3); Potassium 3.8 mmol/L (3.4-5.1); Sodium 138 mmol/L (137-145)
== END ==
PROVIDERS: PCP Student in an Organized Health Care Education/Training Program; Referring Provider Student in an Organized Health Care Education/Training Program; Visit Provider Student in an Organized Health Care Education/Training Program
DX: L08.9 Local infection of the skin and subcutaneous tissue, unspecified (principal); B95.8 Unspecified staphylococcus as the cause of diseases classified elsewhere; M79.10 Myalgia, unspecified site; R30.0 Dysuria; R53.81 Other malaise; R53.83 Other fatigue; E83.42 Hypomagnesemia
CPT/HCPCS: 36415; 80048; 81001; 82550; 83735; 85025; 87040

== ENCOUNTER → 2020-11-26 17:02 | Outpatient (CLI) | payer OTHER, SELFPAY ==
[2020-11-26] MEDS: COVID-19 VACC #1, MRNA(MOD) 100 MCG/0.5 ML VIAL IM (17:15)
== END ==
PROVIDERS: PCP Student in an Organized Health Care Education/Training Program; Visit Provider Internal Medicine
DX: Z23 Encounter for immunization (principal)
CPT/HCPCS: 0011A; 91301

== ENCOUNTER → 2020-12-04 12:15 | Outpatient (CLI) | payer OTHER, SELFPAY ==
[2020-12-04 12:38] LABS: Add Manual Diff / Slide Review NO; Basophils Absolute Auto 0 /uL (0-100); Basophils Percent Auto 0.7 % (0-2); Eosinophils Absolute Auto 200 /uL (0-450); Eosinophils Percent Auto 3.4 % (2-4); Hemoglobin 13.9 g/dL (13.5-17.5); Lymphocytes Absolute Auto 1000 /uL (1100-4500); Lymphocytes Percent Auto 22.6 % (25-40); Mean Corpuscular HGB Conc 33.9 % (30-36); Mean Corpuscular Hemoglobin 32.6 PG (26-34); Mean Corpuscular Volume 96.3 fL (80-100); Monocytes Absolute Auto 900 /uL (0-900); Monocytes Percent Auto 19.6 % (3-14); Neutrophils Absolute Auto 2500 /uL (1500-7000); Neutrophils Percent Auto 53.7 % (50-75); Platelet Count 232 X10^3/uL (150-400); Red Blood Cell Count 4.26 X10^6/uL (4.5-5.9); Red Cell Distribution Width 12.7 % (11.6-14.8); White Blood Cell Count 4.6 X10^3/uL (4.5-11.0)
[2020-12-04 12:56] LABS: Erythrocyte Sedimentation Rate 8 MM/HR (0-15)
[2020-12-04 13:00] LABS: BUN Creatinine Ratio 22.5 (6-22); Blood Urea Nitrogen 16 mg/dL (9-20); C-Reactive Protein Quant < 0.5 mg/dL (<1.0); Calcium 9.6 mg/dL (8.4-10.2); Carbon Dioxide 27 mmol/L (22-32); Chloride 102 mmol/L (98-107); Estimated Glomerular Filt Rate > 60.0 mL/min (>60); Glucose 105 mg/dL (80-110); HEMOLYSIS < 15 (0-50); Potassium 3.9 mmol/L (3.4-5.1); Sodium 136 mmol/L (137-145)
[2020-12-04 13:04] LABS: NT-proBNP (BNP-Adult 18+) 24 pg/mL (<125)
[2020-12-04 13:29] LABS: Testosterone 208 ng/dL (71.8-623)
== END ==
PROVIDERS: PCP Student in an Organized Health Care Education/Training Program; Referring Provider Student in an Organized Health Care Education/Training Program; Visit Provider Student in an Organized Health Care Education/Training Program
DX: R53.83 Other fatigue (principal); M79.89 Other specified soft tissue disorders
CPT/HCPCS: 36415; 80048; 83880; 84403; 85025; 85651; 86140

== ENCOUNTER → 2020-12-10 16:14 | Outpatient (CLI) | payer OTHER, SELFPAY ==
[2020-12-10 18:45] LABS: COVID19 -Nasal RAPID Negative (Negative)
== END ==
PROVIDERS: PCP Student in an Organized Health Care Education/Training Program; Visit Provider Physician Assistant
DX: R51.9 Headache, unspecified (principal); R50.9 Fever, unspecified; R53.82 Chronic fatigue, unspecified; Z20.822 Contact with and (suspected) exposure to COVID-19
CPT/HCPCS: 87635

== ENCOUNTER 2020-12-19 11:15 | Outpatient (RCR) | payer OTHER, SELFPAY ==
--- NOTE | 2020-03-13 15:26 | PT.OIE ---
Current Diagnoses Right lower quadrant pain (03/12/20) Left lower quadrant pain (03/12/20) Past Medical History (Last Reviewed 01/24/20 @ 14:37 by Sara Carranza MD) Abnormal CXR (chest x-ray) (Chronic 2016) Allergy to crab (Acute) Chronic back pain (Chronic 1983) Chronic rhinitis (Chronic 2009) Fatigue (Chronic) Fibromyalgia (Chronic 1983) GERD (gastroesophageal reflux disease) (Chronic 2008) Hayfever (Chronic 1987) Hemorrhoids (Chronic 1999) IBS (irritable bowel syndrome) (Chronic 2003) Migraines (Chronic 2003) Muscle pain, myofascial (Chronic 1987) Nocturnal hypoxemia (Chronic) Obstructive sleep apnea syndrome (Chronic 05/07/17) Plantar fasciitis (Chronic 1983) Precancerous lesion (Resolved 2015) Pulmonary nodule (Chronic 2016) Retinal detachment (Resolved 2008) Sleep apnea (Chronic 2006) Past Surgical History (Last Reviewed 01/24/20 @ 14:37 by Sara Carranza MD) History of colonoscopy (Resolved ~2013) History of nasal surgery (Resolved 2008) History of nasal surgery (Resolved 2014) History of repair of retinal defect by laser photocoagulation (Resolved 2008) History of shoulder surgery (Resolved 2000) Visit Care Team Role Provider Type Matthew Guzman MD Primary Care Provider Physician Specialty: Internal Medicine Address: [address] [place] [address], [address], [address] Email: [email or web address] Sara Carranza MD Attending Provider Physician Referring Provider Specialty: General Surgery Address: [address] [place] [address], [id number] Email: [email or web address] Physical Therapy Initial Evaluation PT-OP-A Visit Information Start: 03/12/20 12:59 Freq: Status: Active Protocol: Document 03/12/20 14:33 [facility] (Rec: 03/12/20 14:50 [facility] [id number]) Out-Patient Physical Therapy Visit Information Visit Information Visit Type Initial Evaluation Visit Start Time 14:30 Visit Stop Time 15:15 Total Visit Minutes 45 Visit Number 1 Evaluation Information Evaluation Date 03/12/20 PT-OP-B Current Condition Start: 03/12/20 12:59 Freq: Status: Active Protocol: Document 03/12/20 14:33 [facility] (Rec: 03/12/20 14:50 [facility] [id number]) Current Condition History of Current Condition Onset Date June 2019 History of Current Condition Hernia surgery in June and his pain levels increased. Pain is more on the right side and pain wraps down to the testicle on both sides but it is worse on the right side. He says it felt like a knife pain and at this point it is a little better. This lasted x 4 months and finally it started getting better. He has been told it is nerve pain from the femoral nerve. He wants to see if PT can help. He did have nerve pain prior to his surgery. The right side was more severe than the left. He reports prior to surgery he did have a physical bulge and it was a pretty big . He was experiencing nerve pain in the area of the right testicle. He does note he has some constipation and he had a bought of constipation prior to the hernia. [place] had [place] 2 months and noted some constipation during this time as well as straining No other abdominal surgeries. Takes muscle relaxants at night for fibromyalgia, takes mortrin 400 mg, Pepsid for GERD that he takes at night, Had been taking gabapenton and occasionally oxycodone, sometimes takes tynelol and motrin combined. He describes a constant regular burning pain but not the sharp jabbing pains any more. Pt has a history of fibromyaliga and GERD. He does meditation and stretching . Treatment Goals Patient/Caregiver Goals Antonio's goals include decreasing pain so that he can avoid further surgery Current Functional Impairments (Reported) Functional Limitations- ADL's pain limits ADL's including lifting and bending activities PT-OP-C Subjective Start: 03/13/20 15:08 Freq: Status: Active Protocol: Document 03/13/20 15:08 [facility] (Rec: 03/13/20 15:10 [facility] [id number]) OP-PT Pain Assessment Pain Assessment Grid Paper Pain Assessment Grid Completed Yes Location bilateral groin pain Pain Location Details pt reports R>L groin pain but he gave the same number on pain scale Intensity 6 Scale Used Numeric (0 - 10) Description Sharp Pain Aggravating Factors Walking,Bending,Lifting PT-OP-F Manual Assessment Start: 03/12/20 12:59 Freq: Status: Active Protocol: Document 03/12/20 15:23 [facility] (Rec: 03/13/20 15:25 [facility] [id number]) Manual Assessments Soft Tissue Assessment Soft Tissue Mobility Assessment restrictions in the fascia of the abdominal wall, tightness right greater than left in the fascia over the inguinal hernia regair, limited flexibility of the iliopsoas and quadricpes PT-OP-J Posture/Palpation/Skin Start: 03/12/20 12:59 Freq: Status: Active Protocol: Document 03/13/20 15:06 [facility] (Rec: 03/13/20 15:08 [facility] [id number]) Palpation Assessment Location Three Palpation Location lower abdominal wall B Palpation Findings Soft Tissue Tightness,Muscle Guarding Two Palpation Location iliopsoas Palpation Findings Soft Tissue Tightness Palpation Details left greater than right iliopsoas tightness One Palpation Location quadriceps Palpation Findings Soft Tissue Tightness PT-OP-K Range of Motion Start: 03/12/20 12:59 Freq: Status: Active Protocol: Document 03/12/20 15:23 [facility] (Rec: 03/13/20 15:25 [facility] [id number]) Hip Goniometric Range of Motion Hip Left Extension 8 Right Hip ROM WFL No Extension 5 Hip ROM Limitations Hip ROM Limitations Soft Tissue Tightness Comments limited hip ROM into hip extension right greater than left Prone knee flexion limited due to quad tightness PT-OP-L Special Tests Start: 03/12/20 12:59 Freq: Status: Active Protocol: Document 03/12/20 15:23 [facility] (Rec: 03/13/20 15:25 [facility] [id number]) Special Tests Hip Special Tests Mook Test Results positive Comments iliopsoas tightness B PT-OP-Q Treatments Start: 03/12/20 12:59 Freq: Status: Active Protocol: Document 03/12/20 19:09 [facility] (Rec: 03/12/20 19:12 [facility] [id number]) Therapeutic Exercises Supine Exercises 1 Supine Exercise Name iliopsoas stretch in a supine position Side bilateral Reps/Minutes hold 1-2 minutes Prone Exercises 2 Prone Exercise Name cobra pose Side bilateral Reps/Minutes hold 1-2 minutes 1 Prone Exercise Name prone quad stretch Side bilateral Reps/Minutes hold 1-2 minutes Manual Therapy Treatment Soft Tissue Mobilization 1 Body Location MFR right lower abdominal wall Comments began MFR above the incision as to see how patient tolerates MFR first. He tolerated treatment today well . There is swelling noted in the right lower quadrant with palpation PT-OP-T Assessment and Plan Start: 03/12/20 12:59 Freq: Status: Active Protocol: Document 03/12/20 15:06 [facility] (Rec: 03/13/20 15:08 [facility] [id number]) Physical Therapy Assessment Assessment Summary Assessment Pt presents to physical therapy today with c/o bilateral groin pain rated 6/ 10 but worse on the right and can wrap down to the testicle on each side. He underwent bilateral hernia repair surgery in June 2019. Pt reports he experienced increased nerve pain following his symptoms. He reports it felt like a knife pain and at this point it is a little better. This lasted x 4 months and finally it started getting better. He reports he has been told it may be nerve pain from the femoral nerve. Antonio would like to see if PT can help. He did have nerve pain prior to his surgery. The right side was more severe than the left. He reports prior to surgery he did have a physical bulge and it was a pretty big. He was experiencing nerve pain in the area of the right testicle. He does note he did have symptoms of constipation prior to the hernia. He had been on his boat for 2 months and noted some constipation during this time as well as straining. Pt has a history of fibromyaliga and GERD. He does meditation and stretching regularly. With examination Antonio has tightness in the anterior quadriceps, psoas and abdominal wall. He is restricted with hip extension B There is still a area of swelling noted in the right lower quadrant near the incision. I did start some MFR over the right abdominal wall today above the incision to see how Antonio tolerates this. He was given a home program of anterior abdominal stretching, iliopsoas stretching, quad stretching. This was tolerated well. Antonio is a good candidate for PT addressing tightness of the anterior hips and abdominal wall. Core stabilization will also be initiated as patient has a reduction in pain levels . Pt was given ice today at the end of treatment over the right groin. Physical Therapy Plan Frequency and Duration Frequency of Treatment 2x/Week Duration of Treatment 8 Plan of Care Start Date 03/12/20 Plan of Care End Date 09/01/20 Therapeutic Interventions Therapeutic Interventions Home Exercise Program,Manual Therapy,Patient/Caregiver Education,Self-Care/Home Management,Soft Tissue Mobilization,Therapeutic Exercises Modalities Cold Pack/Ice Massage Next Visit Focus/Plan Next Note Type Treatment Note Next Visit Plan MFR over the anterior hips and abdominal wall, review of stretches for the abdominal wall and hips.
--- NOTE | 2020-03-13 15:33 | PT.OPPOC ---
Physical, Occupational & Speech Therapy At [facility] Current Diagnoses Right lower quadrant pain (03/12/20) Left lower quadrant pain (03/12/20) Visit Care Team Role Provider Type Matthew Guzman MD Primary Care Provider Physician Specialty: Internal Medicine Address: [address] [place] [address], [address], [address] Email: [email or web address] Sara Carranza MD Attending Provider Physician Referring Provider Specialty: General Surgery Address: [address] [place] [address], [id number] Email: [email or web address] Plan Of Care PT-OP-T Assessment and Plan Start: 03/12/20 12:59 Freq: Status: Active Protocol: Document 03/12/20 15:06 [facility] (Rec: 03/13/20 15:08 [facility] [id number]) Physical Therapy Assessment Goals Three Impairment Myofascial restrictions of the abdominal fascia right greater than left Mcc Goal (LTG) Improved mobility of the fascial mobility of the anterior abdominal wall with stretches and manual therapy techniques LTG Duration 8 weeks Two Impairment Decreased flexibility of the iliopsoas and quadriceps Short Term Goal (STG) Antonio is given a home stretching program for the anterior hips and abdominal wall and he feels independent with his program STG Duration 6 weeks One Impairment Right greater than left inguinal pain rated 6/10 Mcc Goal (LTG) Antonio notes a overall reduction of pain following PT with pain levels dropping to 1-2/10 LTG Duration 8 weeks Assessment Summary Assessment Pt presents to physical therapy today with c/o bilateral groin pain rated 6/ 10 but worse on the right and can wrap down to the testicle on each side. He underwent bilateral hernia repair surgery in June 2019. Pt reports he experienced increased nerve pain following his symptoms. He reports it felt like a knife pain and at this point it is a little better. This lasted x 4 months and finally it started getting better. He reports has been told it may be nerve pain from the femoral nerve. Antonio would like to see if PT can help. He did have nerve pain prior to his surgery. The right side was more severe than the left. He reports prior to surgery he did have a physical bulge and it was a pretty big. He was experiencing nerve pain in the area of the right testicle. He does note he did have symptoms of constipation prior to the hernia. He had been on [place] boat for 2 months and noted some constipation during this time as well as straining. Pt has a history of fibromyaliga and GERD. He does meditation and stretching regularly. With examination Antonio has tightness in the anterior quadriceps, psoas and abdominal wall. He is restricted with hip extension B. There is still a area of swelling noted in the right lower quadrant near the incision. I did start some MFR over the right abdominal wall today above the incision to see how Antonio tolerates this. He was given a home program of anterior abdominal stretching, iliopsoas stretching, quad stretching. This was tolerated well. Antonio is a good candidate for PT addressing tightness of the anterior hips and abdominal wall. Core stabilization will also be initiated as patient has a reduction in pain levels Pt was given ice today at the end of treatment over the right groin. Physical Therapy Plan Frequency and Duration Frequency of Treatment 2x/Week Duration of Treatment 8 Plan of Care Start Date 03/12/20 Plan of Care End Date 05/07/20 Therapeutic Interventions Therapeutic Interventions Home Exercise Program,Manual Therapy,Patient/Caregiver Education,Self-Care/Home Management,Soft Tissue Mobilization,Therapeutic Exercises Modalities Cold Pack/Ice Massage Other Therapeutic Interventions Femoral nerve glides Next Visit Focus/Plan Next Note Type Treatment Note Next Visit Plan MFR over the anterior hips and abdominal wall, review of stretches for the abdominal wall and hips. Plan of Care Dates Plan of Care Start Date 03/12/20 Plan of Care End Date 05/07/20 Electronically Signed by: Sanam Carson, PT 03/13/20 1025 Please Sign and Return: I have reviewed this Plan of Care and certify that the skilled therapy services above are required to meet the patient?s needs. Physician Signature Date Printed Name and Credentials Clinical Instructor Signature Printed Name and Credentials
--- NOTE | 2020-03-14 17:48 | PT.OTN ---
Current Diagnoses Right lower quadrant pain (03/14/20) Left lower quadrant pain (03/14/20) Physical Therapy Treatment Note PT-OP-A Visit Information Start: 03/12/20 12:59 Freq: Status: Active Protocol: Document 03/14/20 17:43 [facility] (Rec: 03/14/20 17:48 [facility] [id number]) Out-Patient Physical Therapy Visit Information Visit Information Visit Type Treatment Note Visit Start Time 13:45 Visit Stop Time 14:40 Total Visit Minutes 55 Visit Number 2 PT-OP-B Current Condition Start: 03/12/20 12:59 Freq: Status: Active Protocol: Document 03/12/20 14:33 [facility] (Rec: 03/12/20 14:50 [facility] [id number]) Current Condition History of Current Condition Onset Date June 2019 History of Current Condition Hernia surgery in June and his pain levels increased. Pain is more on the right side and pain wraps down to the testicle on both sides but it is worse on the right side. He says it felt like a knife pain and at this point it is a little better. This lasted x 4 months and finally it started getting better. He has been told it is nerve pain from the femoral nerve. He wants to see if PT can help. He did have nerve pain prior to his surgery. The right side was more severe than the left. He reports prior to surgery he did have a physical bulge and it was a pretty big . He was experiencing nerve pain in the area of the right testicle. He does note he has some constipation and he had a bought of constipation prior to the hernia. He had been on his boat for 2 months and noted some constipation during this time as well as straining No other abdominal surgeries. Takes muscle relaxants at night for fibromyalgia, takes mortrin 400 mg, Pepsid for GERD that he takes at night, Had been taking gabapenton and occasionally oxycodone, sometimes takes tynelol and motrin combined. He describes a constant regular burning pain but not the sharp jabbing pains any more. Pt has a history of fibromyaliga and GERD. He does meditation and stretching . Treatment Goals Patient/Caregiver Goals Antonio's goals include decreasing pain so that he can avoid further surgery Current Functional Impairments (Reported) Functional Limitations- ADL's pain limits ADL's including lifting and bending activities PT-OP-C Subjective Start: 03/13/20 15:08 Freq: Status: Active Protocol: Document 03/14/20 17:43 [facility] (Rec: 03/14/20 17:48 [facility] [email or web address]) OP-PT Subjective Patient Comments Patient Comments pt reports he felt good following last visit with MFR over the abdomen. He has been working on his stretches PT-OP-F Manual Assessment Start: 03/12/20 12:59 Freq: Status: Active Protocol: Document 03/12/20 15:23 [facility] (Rec: 03/13/20 15:25 [facility] [id number]) Manual Assessments Soft Tissue Assessment Soft Tissue Mobility Assessment restrictions in the fascia of the abdominal wall, tightness right greater than left in the fascia over the inguinal hernia regair, limited flexibility of the iliopsoas and quadricpes PT-OP-J Posture/Palpation/Skin Start: 03/12/20 12:59 Freq: Status: Active Protocol: Document 03/13/20 15:06 [facility] (Rec: 03/13/20 15:08 [facility] [id number]) Palpation Assessment Location Three Palpation Location lower abdominal wall B Palpation Findings Soft Tissue Tightness,Muscle Guarding Two Palpation Location iliopsoas Palpation Findings Soft Tissue Tightness Palpation Details left greater than right iliopsoas tightness One Palpation Location quadriceps Palpation Findings Soft Tissue Tightness PT-OP-K Range of Motion Start: 03/12/20 12:59 Freq: Status: Active Protocol: Document 03/12/20 15:23 [facility] (Rec: 03/13/20 15:25 [facility] [id number]) Hip Goniometric Range of Motion Hip Left Extension 8 Right Hip ROM WFL No Extension 5 Hip ROM Limitations Hip ROM Limitations Soft Tissue Tightness Comments limited hip ROM into hip extension right greater than left Prone knee flexion limited due to quad tightness PT-OP-L Special Tests Start: 03/12/20 12:59 Freq: Status: Active Protocol: Document 03/12/20 15:23 [facility] (Rec: 03/13/20 15:25 [facility] [id number]) Special Tests Hip Special Tests Mook Test Results positive Comments iliopsoas tightness B PT-OP-Q Treatments Start: 03/12/20 12:59 Freq: Status: Active Protocol: Document 03/14/20 17:43 [facility] (Rec: 03/14/20 17:48 [facility] [email or web address]) Therapeutic Exercises Supine Exercises 1 Supine Exercise Name iliopsoas stretch in a supine position Side bilateral Reps/Minutes hold 1-2 minutes Prone Exercises 2 Prone Exercise Name cobra pose Side bilateral Reps/Minutes hold 1-2 minutes 1 Prone Exercise Name prone quad stretch Side bilateral Reps/Minutes hold 1-2 minutes Manual Therapy Treatment Soft Tissue Mobilization 1 Body Location MFR right lower abdominal wall Comments worked today over B lower abdominal wall, ILU massage, gentle MFR over B inguinal ligament region. Pt had good tolerance without c/o nerve pain PT-OP-R Modalities Start: 03/14/20 17:48 Freq: Status: Active Protocol: Document 03/14/20 17:48 [facility] (Rec: 03/14/20 17:48 [facility] [id number]) Hot Pack/Cold Pack Treatment Cold Pack Location B anterior groin Patient Position Supine Patient Tolerance Good PT-OP-T Assessment and Plan Start: 03/12/20 12:59 Freq: Status: Active Protocol: Document 03/14/20 17:43 [facility] (Rec: 03/14/20 17:48 [facility] [id number]) Physical Therapy Assessment Assessment Summary Assessment Antonio tolerated treatment well today without c/o pain. He is tight across the abdominal wall as well as the iliopsoas musculature Physical Therapy Plan Frequency and Duration Frequency of Treatment 2x/Week Duration of Treatment 8 Plan of Care Start Date 03/12/20 Plan of Care End Date 05/07/20
--- NOTE | 2020-03-27 14:58 | PT.OTN ---
Current Diagnoses Right lower quadrant pain (03/27/20) Left lower quadrant pain (03/27/20) Physical Therapy Treatment Note PT-OP-A Visit Information Start: 03/12/20 12:59 Freq: Status: Active Protocol: Document 03/27/20 14:45 [facility] (Rec: 03/27/20 14:57 [facility] [id number]) Out-Patient Physical Therapy Visit Information Visit Information Visit Type Treatment Note Visit Start Time 09:45 Visit Stop Time 10:30 Total Visit Minutes 45 Visit Number 3 PT-OP-B Current Condition Start: 03/12/20 12:59 Freq: Status: Active Protocol: Document 03/12/20 14:33 [facility] (Rec: 03/12/20 14:50 [facility] [id number]) Current Condition History of Current Condition Onset Date June 2019 History of Current Condition Hernia surgery in June and his pain levels increased. Pain is more on the right side and pain wraps down to the testicle on both sides but it is worse on the right side. He says it felt like a knife pain and at this point it is a little better. This lasted x 4 months and finally it started getting better. He has been told it is nerve pain from the femoral nerve. He wants to see if PT can help. He did have nerve pain prior to his surgery. The right side was more severe than the left. He reports prior to surgery he did have a physical bulge and it was a pretty big . He was experiencing nerve pain in the area of the right testicle. He does note he has some constipation and he had a bought of constipation prior to the hernia. [place] 2 [place] and noted some constipation during this time as well as straining No other abdominal surgeries. Takes muscle relaxants at night for fibromyalgia, takes mortrin 400 mg, Pepsid for GERD that he takes at night, Had been taking gabapenton and occasionally oxycodone, sometimes takes tynelol and motrin combined. He describes a constant regular burning pain but not the sharp jabbing pains any more. Pt has a history of fibromyaliga and GERD. He does meditation and stretching . Treatment Goals Patient/Caregiver Goals Antonio's goals include decreasing pain so that he can avoid further surgery Current Functional Impairments (Reported) Functional Limitations- ADL's pain limits ADL's including lifting and bending activities PT-OP-C Subjective Start: 03/13/20 15:08 Freq: Status: Active Protocol: Document 03/27/20 14:45 [facility] (Rec: 03/27/20 14:57 [facility] [id number]) OP-PT Subjective Patient Comments Patient Comments Antonio reports he has still been feeling irritation on the right side. Trying to stretch and not over do it. He feels the MFR is helpful PT-OP-F Manual Assessment Start: 03/12/20 12:59 Freq: Status: Active Protocol: Document 03/12/20 15:23 [facility] (Rec: 03/13/20 15:25 [facility] [id number]) Manual Assessments Soft Tissue Assessment Soft Tissue Mobility Assessment restrictions in the fascia of the abdominal wall, tightness right greater than left in the fascia over the inguinal hernia regair, limited flexibility of the iliopsoas and quadricpes PT-OP-J Posture/Palpation/Skin Start: 03/12/20 12:59 Freq: Status: Active Protocol: Document 03/13/20 15:06 [facility] (Rec: 03/13/20 15:08 [facility] [id number]) Palpation Assessment Location Three Palpation Location lower abdominal wall B Palpation Findings Soft Tissue Tightness,Muscle Guarding Two Palpation Location iliopsoas Palpation Findings Soft Tissue Tightness Palpation Details left greater than right iliopsoas tightness One Palpation Location quadriceps Palpation Findings Soft Tissue Tightness PT-OP-K Range of Motion Start: 03/12/20 12:59 Freq: Status: Active Protocol: Document 03/12/20 15:23 [facility] (Rec: 03/13/20 15:25 [facility] [id number]) Hip Goniometric Range of Motion Hip Left Extension 8 Right Hip ROM WFL No Extension 5 Hip ROM Limitations Hip ROM Limitations Soft Tissue Tightness Comments limited hip ROM into hip extension right greater than left Prone knee flexion limited due to quad tightness PT-OP-L Special Tests Start: 03/12/20 12:59 Freq: Status: Active Protocol: Document 03/12/20 15:23 [facility] (Rec: 03/13/20 15:25 [facility] [id number]) Special Tests Hip Special Tests Mook Test Results positive Comments iliopsoas tightness B PT-OP-Q Treatments Start: 03/12/20 12:59 Freq: Status: Active Protocol: Document 03/27/20 14:45 [facility] (Rec: 03/27/20 14:57 [facility] [id number]) Therapeutic Exercises Supine Exercises 2 Supine Exercise Name lower trunk rotation 1 Supine Exercise Name iliopsoas stretch in a supine position Side bilateral Reps/Minutes hold 1-2 minutes Manual Therapy Treatment Soft Tissue Mobilization 2 Body Location adductor release bilaterally iliopsoas Body Location iliopsoas Comments release of both the iliacus and the psoas today in both sidelying and supine 1 Body Location MFR right lower abdominal wall Comments worked today over B lower abdominal wall, ILU massage, gentle MFR over B inguinal ligament region. Pt had good tolerance without c/o nerve pain Manual Techniques 1 Type manual quad and iliopsoas stretch Comments in prone and sideling PT-OP-R Modalities Start: 03/14/20 17:48 Freq: Status: Active Protocol: Document 03/14/20 17:48 [facility] (Rec: 03/14/20 17:48 [facility] [id number]) Hot Pack/Cold Pack Treatment Cold Pack Location B anterior groin Patient Position Supine Patient Tolerance Good PT-OP-T Assessment and Plan Start: 03/12/20 12:59 Freq: Status: Active Protocol: Document 03/27/20 14:45 [facility] (Rec: 03/27/20 14:57 [facility] [id number]) Physical Therapy Assessment Assessment Summary Assessment trigger points found in R>L adductor attachments today to the pubic ramus. I noted decreased swelling in the right inguinal region. Physical Therapy Plan Frequency and Duration Frequency of Treatment 2x/Week Duration of Treatment 8 Plan of Care Start Date 03/12/20 Plan of Care End Date 05/07/20 Therapeutic Interventions Therapeutic Interventions Home Exercise Program,Manual Therapy,Patient/Caregiver Education,Self-Care/Home Management,Soft Tissue Mobilization,Therapeutic Exercises Modalities Cold Pack/Ice Massage Other Therapeutic Interventions Femoral nerve glides Next Visit Focus/Plan Next Note Type Treatment Note Next Visit Plan 45
--- NOTE | 2020-04-16 18:00 | PT.OTN ---
Current Diagnoses Right lower quadrant pain (04/16/20) Left lower quadrant pain (04/16/20) Physical Therapy Treatment Note PT-OP-A Visit Information Start: 03/12/20 12:59 Freq: Status: Active Protocol: Document 04/16/20 17:45 [facility] (Rec: 04/16/20 18:00 [facility] [id number]) Out-Patient Physical Therapy Visit Information Visit Information Visit Type Treatment Note Visit Start Time 13:45 Visit Stop Time 14:30 Total Visit Minutes 45 Visit Number 4 PT-OP-B Current Condition Start: 03/12/20 12:59 Freq: Status: Active Protocol: Document 03/12/20 14:33 [facility] (Rec: 03/12/20 14:50 [facility] [id number]) Current Condition History of Current Condition Onset Date June 2019 History of Current Condition Hernia surgery in June and his pain levels increased. Pain is more on the right side and pain wraps down to the testicle on both sides but it is worse on the right side. He says it felt like a knife pain and at this point it is a little better. This lasted x 4 months and finally it started getting better. He has been told it is nerve pain from the femoral nerve. He wants to see if PT can help. He did have nerve pain prior to his surgery. The right side was more severe than the left. He reports prior to surgery he did have a physical bulge and it was a pretty big . He was experiencing nerve pain in the area of the right testicle. He does note he has some constipation and he had a bought of constipation prior to the hernia. [place] 2 [place] and noted some constipation during this time as well as straining No other abdominal surgeries. Takes muscle relaxants at night for fibromyalgia, takes mortrin 400 mg, Pepsid for GERD that he takes at night, Had been taking gabapenton and occasionally oxycodone, sometimes takes tynelol and motrin combined. He describes a constant regular burning pain but not the sharp jabbing pains any more. Pt has a history of fibromyaliga and GERD. He does meditation and stretching . Treatment Goals Patient/Caregiver Goals Antonio's goals include decreasing pain so that he can avoid further surgery Current Functional Impairments (Reported) Functional Limitations- ADL's pain limits ADL's including lifting and bending activities PT-OP-C Subjective Start: 03/13/20 15:08 Freq: Status: Active Protocol: Document 04/16/20 17:45 [facility] (Rec: 04/16/20 18:00 [facility] [id number]) OP-PT Subjective Patient Comments Patient Comments Antonio notes he still has pain however he feels like it is a little better. He is not experiencing the nerve pain he had. PT-OP-F Manual Assessment Start: 03/12/20 12:59 Freq: Status: Active Protocol: Document 03/12/20 15:23 [facility] (Rec: 03/13/20 15:25 [facility] [id number]) Manual Assessments Soft Tissue Assessment Soft Tissue Mobility Assessment restrictions in the fascia of the abdominal wall, tightness right greater than left in the fascia over the inguinal hernia regair, limited flexibility of the iliopsoas and quadricpes PT-OP-J Posture/Palpation/Skin Start: 03/12/20 12:59 Freq: Status: Active Protocol: Document 03/13/20 15:06 [facility] (Rec: 03/13/20 15:08 [facility] [id number]) Palpation Assessment Location Three Palpation Location lower abdominal wall B Palpation Findings Soft Tissue Tightness,Muscle Guarding Two Palpation Location iliopsoas Palpation Findings Soft Tissue Tightness Palpation Details left greater than right iliopsoas tightness One Palpation Location quadriceps Palpation Findings Soft Tissue Tightness PT-OP-K Range of Motion Start: 03/12/20 12:59 Freq: Status: Active Protocol: Document 03/12/20 15:23 [facility] (Rec: 03/13/20 15:25 [facility] [id number]) Hip Goniometric Range of Motion Hip Left Extension 8 Right Hip ROM WFL No Extension 5 Hip ROM Limitations Hip ROM Limitations Soft Tissue Tightness Comments limited hip ROM into hip extension right greater than left Prone knee flexion limited due to quad tightness PT-OP-L Special Tests Start: 03/12/20 12:59 Freq: Status: Active Protocol: Document 03/12/20 15:23 [facility] (Rec: 03/13/20 15:25 [facility] [id number]) Special Tests Hip Special Tests Mook Test Results positive Comments iliopsoas tightness B PT-OP-Q Treatments Start: 03/12/20 12:59 Freq: Status: Active Protocol: Document 04/16/20 17:45 [facility] (Rec: 04/16/20 18:00 [facility] [id number]) Therapeutic Exercises Supine Exercises 1 Supine Exercise Name iliopsoas stretch in a supine position Side bilateral Reps/Minutes hold 1-2 minutes Prone Exercises 1 Prone Exercise Name prone quad stretch Side bilateral Reps/Minutes hold 1-2 minutes Other Exercises 2 Other Exercise Name pelvic floor decompression Reps/Minutes x 10 reps Comments pt to elevate pelvis or place pelvis on a bolster 1 Other Exercise Name 1/2 kneeling hip flexor stretch Manual Therapy Treatment Soft Tissue Mobilization 2 Body Location adductor release bilaterally iliopsoas Body Location iliopsoas Comments release of both the iliacus and the psoas today in both sidelying and supine 1 Body Location MFR right lower abdominal wall Comments worked today over B lower abdominal wall, ILU massage, gentle MFR over B inguinal ligament region. Pt had good tolerance without c/o nerve pain PT-OP-R Modalities Start: 03/14/20 17:48 Freq: Status: Active Protocol: Document 03/14/20 17:48 [facility] (Rec: 03/14/20 17:48 [facility] [id number]) Hot Pack/Cold Pack Treatment Cold Pack Location B anterior groin Patient Position Supine Patient Tolerance Good PT-OP-T Assessment and Plan Start: 03/12/20 12:59 Freq: Status: Active Protocol: Document 04/16/20 17:45 [facility] (Rec: 04/16/20 18:00 [facility] [id number]) Physical Therapy Assessment Assessment Summary Assessment There is still some residual swelling but it is improving. We discussed using the pelvic floor as a sump pump to help lymph fluid return tot he trunk. Pt to use his zero gravity chair to elevate his pelvis and do pelvic floor exercises in that position. I also added in 1/2 kneeing hip flexor stretch today Physical Therapy Plan Frequency and Duration Frequency of Treatment 2x/Week Duration of Treatment 8 Plan of Care Start Date 03/12/20 Plan of Care End Date 05/07/20
--- NOTE | 2020-04-18 17:52 | PT.OTN ---
Current Diagnoses Right lower quadrant pain (04/18/20) Left lower quadrant pain (04/18/20) Physical Therapy Treatment Note PT-OP-A Visit Information Start: 03/12/20 12:59 Freq: Status: Active Protocol: Document 04/18/20 17:47 [facility] (Rec: 04/18/20 17:52 [facility] [email or web address]) Out-Patient Physical Therapy Visit Information Visit Information Visit Type Treatment Note Visit Start Time 13:45 Visit Stop Time 14:30 Total Visit Minutes 45 Visit Number 5 PT-OP-B Current Condition Start: 03/12/20 12:59 Freq: Status: Active Protocol: Document 03/12/20 14:33 [facility] (Rec: 03/12/20 14:50 [facility] [id number]) Current Condition History of Current Condition Onset Date June 2019 History of Current Condition Hernia surgery in June and his pain levels increased. Pain is more on the right side and pain wraps down to the testicle on both sides but it is worse on the right side. He says it felt like a knife pain and at this point it is a little better. This lasted x 4 months and finally it started getting better. He has been told it is nerve pain from the femoral nerve. He wants to see if PT can help. He did have nerve pain prior to his surgery. The right side was more severe than the left. He reports prior to surgery he did have a physical bulge and it was a pretty big . He was experiencing nerve pain in the area of the right testicle. He does note he has some constipation and he had a bought of constipation prior to the hernia. [place] for 2 [place] and noted some constipation during this time as well as straining No other abdominal surgeries. Takes muscle relaxants at night for fibromyalgia, takes mortrin 400 mg, Pepsid for GERD that he takes at night, Had been taking gabapenton and occasionally oxycodone, sometimes takes tynelol and motrin combined. He describes a constant regular burning pain but not the sharp jabbing pains any more. Pt has a history of fibromyaliga and GERD. He does meditation and stretching . Treatment Goals Patient/Caregiver Goals Antonio's goals include decreasing pain so that he can avoid further surgery Current Functional Impairments (Reported) Functional Limitations- ADL's pain limits ADL's including lifting and bending activities PT-OP-C Subjective Start: 03/13/20 15:08 Freq: Status: Active Protocol: Document 04/18/20 17:47 [facility] (Rec: 04/18/20 17:52 [facility] [id number]) OP-PT Subjective Patient Comments Patient Comments Antonio reports he has been working on his stretches and trying to find the right amount of stretch so he doesn' t over do it. PT-OP-F Manual Assessment Start: 03/12/20 12:59 Freq: Status: Active Protocol: Document 03/12/20 15:23 [facility] (Rec: 03/13/20 15:25 [facility] [id number]) Manual Assessments Soft Tissue Assessment Soft Tissue Mobility Assessment restrictions in the fascia of the abdominal wall, tightness right greater than left in the fascia over the inguinal hernia regair, limited flexibility of the iliopsoas and quadricpes PT-OP-J Posture/Palpation/Skin Start: 03/12/20 12:59 Freq: Status: Active Protocol: Document 03/13/20 15:06 [facility] (Rec: 03/13/20 15:08 [facility] [id number]) Palpation Assessment Location Three Palpation Location lower abdominal wall B Palpation Findings Soft Tissue Tightness,Muscle Guarding Two Palpation Location iliopsoas Palpation Findings Soft Tissue Tightness Palpation Details left greater than right iliopsoas tightness One Palpation Location quadriceps Palpation Findings Soft Tissue Tightness PT-OP-K Range of Motion Start: 03/12/20 12:59 Freq: Status: Active Protocol: Document 03/12/20 15:23 [facility] (Rec: 03/13/20 15:25 [facility] [id number]) Hip Goniometric Range of Motion Hip Left Extension 8 Right Hip ROM WFL No Extension 5 Hip ROM Limitations Hip ROM Limitations Soft Tissue Tightness Comments limited hip ROM into hip extension right greater than left Prone knee flexion limited due to quad tightness PT-OP-L Special Tests Start: 03/12/20 12:59 Freq: Status: Active Protocol: Document 03/12/20 15:23 [facility] (Rec: 03/13/20 15:25 [facility] [id number]) Special Tests Hip Special Tests Mook Test Results positive Comments iliopsoas tightness B PT-OP-Q Treatments Start: 03/12/20 12:59 Freq: Status: Active Protocol: Document 04/18/20 17:47 [facility] (Rec: 04/18/20 17:52 [facility] [email or web address]) Therapeutic Exercises Supine Exercises ITB stretch with strap Supine Exercise Name ITB stretch with strap Manual Therapy Treatment Soft Tissue Mobilization 2 Body Location adductor release bilaterally iliopsoas Body Location iliopsoas Comments release of both the iliacus and the psoas today in both sidelying and supine 1 Body Location MFR right lower abdominal wall Comments worked today over B lower abdominal wall, ILU massage, gentle MFR over B inguinal ligament region. Pt had good tolerance without c/o nerve pain PT-OP-R Modalities Start: 03/14/20 17:48 Freq: Status: Active Protocol: Document 03/14/20 17:48 [facility] (Rec: 03/14/20 17:48 [facility] [id number]) Hot Pack/Cold Pack Treatment Cold Pack Location B anterior groin Patient Position Supine Patient Tolerance Good PT-OP-T Assessment and Plan Start: 03/12/20 12:59 Freq: Status: Active Protocol: Document 04/18/20 17:47 [facility] (Rec: 04/18/20 17:52 [facility] [id number]) Physical Therapy Assessment Assessment Summary Assessment Worked with Antonio in a elevated pelvis position to help with lymphatic flow. He tolerated this well and would like to get a wedge for home Physical Therapy Plan Next Visit Focus/Plan Next Note Type Treatment Note Next Visit Plan work on pelvic decompression, MFR techniques and begin working on abdominal stabilization on all 4's
--- NOTE | 2020-04-23 16:39 | PT.OTN ---
Current Diagnoses Right lower quadrant pain (04/23/20) Left lower quadrant pain (04/23/20) Physical Therapy Treatment Note PT-OP-A Visit Information Start: 03/12/20 12:59 Freq: Status: Active Protocol: Document 04/23/20 16:36 [facility] (Rec: 04/23/20 16:39 [facility] [id number]) Out-Patient Physical Therapy Visit Information Visit Information Visit Type Treatment Note Visit Start Time 13:45 Visit Stop Time 14:30 Total Visit Minutes 45 Visit Number 6 PT-OP-B Current Condition Start: 03/12/20 12:59 Freq: Status: Active Protocol: Document 03/12/20 14:33 [facility] (Rec: 03/12/20 14:50 [facility] [id number]) Current Condition History of Current Condition Onset Date June 2019 History of Current Condition Hernia surgery in June and his pain levels increased. Pain is more on the right side and pain wraps down to the testicle on both sides but it is worse on the right side. He says it felt like a knife pain and at this point it is a little better. This lasted x 4 months and finally it started getting better. He has been told it is nerve pain from the femoral nerve. He wants to see if PT can help. He did have nerve pain prior to his surgery. The right side was more severe than the left. He reports prior to surgery he did have a physical bulge and it was a pretty big . He was experiencing nerve pain in the area of the right testicle. He does note he has some constipation and he had a bought of constipation prior to the hernia. [place] 2 [place] and noted some constipation during this time as well as straining No other abdominal surgeries. Takes muscle relaxants at night for fibromyalgia, takes mortrin 400 mg, Pepsid for GERD that he takes at night, Had been taking gabapenton and occasionally oxycodone, sometimes takes tynelol and motrin combined. He describes a constant regular burning pain but not the sharp jabbing pains any more. Pt has a history of fibromyaliga and GERD. He does meditation and stretching . Treatment Goals Patient/Caregiver Goals Antonio's goals include decreasing pain so that he can avoid further surgery Current Functional Impairments (Reported) Functional Limitations- ADL's pain limits ADL's including lifting and bending activities PT-OP-C Subjective Start: 03/13/20 15:08 Freq: Status: Active Protocol: Document 04/23/20 16:36 [facility] (Rec: 04/23/20 16:39 [facility] [id number]) OP-PT Subjective Patient Comments Patient Comments Antonio reports he really feels like he is doing better and that the manual therapy work is really helping PT-OP-F Manual Assessment Start: 03/12/20 12:59 Freq: Status: Active Protocol: Document 03/12/20 15:23 [facility] (Rec: 03/13/20 15:25 [facility] [id number]) Manual Assessments Soft Tissue Assessment Soft Tissue Mobility Assessment restrictions in the fascia of the abdominal wall, tightness right greater than left in the fascia over the inguinal hernia regair, limited flexibility of the iliopsoas and quadricpes PT-OP-J Posture/Palpation/Skin Start: 03/12/20 12:59 Freq: Status: Active Protocol: Document 03/13/20 15:06 [facility] (Rec: 03/13/20 15:08 [facility] [id number]) Palpation Assessment Location Three Palpation Location lower abdominal wall B Palpation Findings Soft Tissue Tightness,Muscle Guarding Two Palpation Location iliopsoas Palpation Findings Soft Tissue Tightness Palpation Details left greater than right iliopsoas tightness One Palpation Location quadriceps Palpation Findings Soft Tissue Tightness PT-OP-K Range of Motion Start: 03/12/20 12:59 Freq: Status: Active Protocol: Document 03/12/20 15:23 [facility] (Rec: 03/13/20 15:25 [facility] [id number]) Hip Goniometric Range of Motion Hip Left Extension 8 Right Hip ROM WFL No Extension 5 Hip ROM Limitations Hip ROM Limitations Soft Tissue Tightness Comments limited hip ROM into hip extension right greater than left Prone knee flexion limited due to quad tightness PT-OP-L Special Tests Start: 03/12/20 12:59 Freq: Status: Active Protocol: Document 03/12/20 15:23 [facility] (Rec: 03/13/20 15:25 [facility] [id number]) Special Tests Hip Special Tests Mook Test Results positive Comments iliopsoas tightness B PT-OP-Q Treatments Start: 03/12/20 12:59 Freq: Status: Active Protocol: Document 04/23/20 16:36 [facility] (Rec: 04/23/20 16:39 [facility] [id number]) Manual Therapy Treatment Soft Tissue Mobilization iliopsoas Body Location iliopsoas Comments release of both the iliacus and the psoas today in both sidelying and supine 1 Body Location MFR right lower abdominal wall Comments worked today over B lower abdominal wall, ILU massage, gentle MFR over B inguinal ligament region. Pt had good tolerance without c/o nerve pain PT-OP-R Modalities Start: 03/14/20 17:48 Freq: Status: Active Protocol: Document 03/14/20 17:48 [facility] (Rec: 03/14/20 17:48 [facility] [id number]) Hot Pack/Cold Pack Treatment Cold Pack Location B anterior groin Patient Position Supine Patient Tolerance Good PT-OP-T Assessment and Plan Start: 03/12/20 12:59 Freq: Status: Active Protocol: Document 04/23/20 16:36 [facility] (Rec: 04/23/20 16:39 [facility] [id number]) Physical Therapy Assessment Assessment Summary Assessment swelling is slowly decreasing and in the inguinal region. Elevating the pelvis is helping. Antonio continues to benefit from manual therapy work Physical Therapy Plan Frequency and Duration Frequency of Treatment 2x/Week Duration of Treatment 8 Plan of Care Start Date 03/12/20 Plan of Care End Date 05/07/20 Therapeutic Interventions Therapeutic Interventions Home Exercise Program,Manual Therapy,Patient/Caregiver Education,Self-Care/Home Management,Soft Tissue Mobilization,Therapeutic Exercises Modalities Cold Pack/Ice Massage Other Therapeutic Interventions Femoral nerve glides
--- NOTE | 2020-04-30 08:07 | PT.OTN ---
Current Diagnoses Right lower quadrant pain (04/25/20) Left lower quadrant pain (04/25/20) Physical Therapy Treatment Note PT-OP-A Visit Information Start: 03/12/20 12:59 Freq: Status: Active Protocol: Document 04/25/20 14:28 [facility] (Rec: 04/25/20 14:29 [facility] [id number]) Out-Patient Physical Therapy Visit Information Visit Information Visit Type Treatment Note Visit Start Time 14:30 Visit Stop Time 15:15 Total Visit Minutes 45 Visit Number 7 Evaluation Information Evaluation Date 03/12/20 PT-OP-B Current Condition Start: 03/12/20 12:59 Freq: Status: Active Protocol: Document 03/12/20 14:33 [facility] (Rec: 03/12/20 14:50 [facility] [id number]) Current Condition History of Current Condition Onset Date June 2019 History of Current Condition Hernia surgery in June and his pain levels increased. Pain is more on the right side and pain wraps down to the testicle on both sides but it is worse on the right side. He says it felt like a knife pain and at this point it is a little better. This lasted x 4 months and finally it started getting better. He has been told it is nerve pain from the femoral nerve. He wants to see if PT can help. He did have nerve pain prior to his surgery. The right side was more severe than the left. He reports prior to surgery he did have a physical bulge and it was a pretty big . He was experiencing nerve pain in the area of the right testicle. He does note he has some constipation and he had a bought of constipation prior to the hernia. [place] had [place] 2 months and noted some constipation during this time as well as straining No other abdominal surgeries. Takes muscle relaxants at night for fibromyalgia, takes mortrin 400 mg, Pepsid for GERD that he takes at night, Had been taking gabapenton and occasionally oxycodone, sometimes takes tynelol and motrin combined. He describes a constant regular burning pain but not the sharp jabbing pains any more. Pt has a history of fibromyaliga and GERD. He does meditation and stretching . Treatment Goals Patient/Caregiver Goals Antonio's goals include decreasing pain so that he can avoid further surgery Current Functional Impairments (Reported) Functional Limitations- ADL's pain limits ADL's including lifting and bending activities PT-OP-C Subjective Start: 03/13/20 15:08 Freq: Status: Active Protocol: Document 04/25/20 17:37 [facility] (Rec: 04/25/20 17:41 [facility] [id number]) OP-PT Subjective Patient Comments Patient Comments pt reports he can tell that PT is helping. He still has days where he has more pain than others. Patient Reported Progress Improving PT-OP-F Manual Assessment Start: 03/12/20 12:59 Freq: Status: Active Protocol: Document 03/12/20 15:23 [facility] (Rec: 03/13/20 15:25 [facility] [id number]) Manual Assessments Soft Tissue Assessment Soft Tissue Mobility Assessment restrictions in the fascia of the abdominal wall, tightness right greater than left in the fascia over the inguinal hernia regair, limited flexibility of the iliopsoas and quadricpes PT-OP-J Posture/Palpation/Skin Start: 03/12/20 12:59 Freq: Status: Active Protocol: Document 03/13/20 15:06 [facility] (Rec: 03/13/20 15:08 [facility] [id number]) Palpation Assessment Location Three Palpation Location lower abdominal wall B Palpation Findings Soft Tissue Tightness,Muscle Guarding Two Palpation Location iliopsoas Palpation Findings Soft Tissue Tightness Palpation Details left greater than right iliopsoas tightness One Palpation Location quadriceps Palpation Findings Soft Tissue Tightness PT-OP-K Range of Motion Start: 03/12/20 12:59 Freq: Status: Active Protocol: Document 03/12/20 15:23 [facility] (Rec: 03/13/20 15:25 [facility] [id number]) Hip Goniometric Range of Motion Hip Left Extension 8 Right Hip ROM WFL No Extension 5 Hip ROM Limitations Hip ROM Limitations Soft Tissue Tightness Comments limited hip ROM into hip extension right greater than left Prone knee flexion limited due to quad tightness PT-OP-L Special Tests Start: 03/12/20 12:59 Freq: Status: Active Protocol: Document 03/12/20 15:23 [facility] (Rec: 03/13/20 15:25 [facility] [id number]) Special Tests Hip Special Tests Mook Test Results positive Comments iliopsoas tightness B PT-OP-Q Treatments Start: 03/12/20 12:59 Freq: Status: Active Protocol: Document 04/25/20 17:37 [facility] (Rec: 04/30/20 08:06 [facility] [id number]) Manual Therapy Treatment Soft Tissue Mobilization 2 Body Location adductor release bilaterally iliopsoas Body Location iliopsoas Comments release of both the iliacus and the psoas today in both sidelying and supine 1 Body Location MFR right lower abdominal wall Comments worked today over B lower abdominal wall, ILU massage, gentle MFR over B inguinal ligament region. Pt had good tolerance without c/o nerve pain Manual Techniques 1 Type manual quad and iliopsoas stretch Comments in prone and sidelying PT-OP-R Modalities Start: 03/14/20 17:48 Freq: Status: Active Protocol: Document 03/14/20 17:48 [facility] (Rec: 03/14/20 17:48 [facility] [id number]) Hot Pack/Cold Pack Treatment Cold Pack Location B anterior groin Patient Position Supine Patient Tolerance Good PT-OP-T Assessment and Plan Start: 03/12/20 12:59 Freq: Status: Active Protocol: Document 04/25/20 17:37 [facility] (Rec: 04/30/20 08:06 [facility] [id number]) Physical Therapy Assessment Assessment Summary Assessment swelling continues to slowly decrease and Antonio feels PT and manual work in helping him . He is not experiencing the sharp nerve pain any more Physical Therapy Plan Frequency and Duration Frequency of Treatment 2x/Week Duration of Treatment 8 Plan of Care Start Date 03/12/20 Plan of Care End Date 05/07/20 Therapeutic Interventions Therapeutic Interventions Home Exercise Program,Manual Therapy,Patient/Caregiver Education,Self-Care/Home Management,Soft Tissue Mobilization,Therapeutic Exercises Modalities Cold Pack/Ice Massage Other Therapeutic Interventions Femoral nerve glides Next Visit Focus/Plan Next Note Type Treatment Note Next Visit Plan continue to work on pelvic decompression and stabilization with the pelvic floor and transverse abdominal musculature
--- NOTE | 2020-05-07 17:34 | PT.OTN ---
Current Diagnoses Right lower quadrant pain (05/07/20) Left lower quadrant pain (05/07/20) Physical Therapy Treatment Note PT-OP-A Visit Information Start: 03/12/20 12:59 Freq: Status: Active Protocol: Document 05/07/20 17:15 [facility] (Rec: 05/07/20 17:34 [facility] [email or web address]) Out-Patient Physical Therapy Visit Information Visit Information Visit Type Treatment Note Visit Start Time 16:00 Visit Stop Time 16:45 Total Visit Minutes 45 Visit Number 8 PT-OP-B Current Condition Start: 03/12/20 12:59 Freq: Status: Active Protocol: Document 03/12/20 14:33 [facility] (Rec: 03/12/20 14:50 [facility] [id number]) Current Condition History of Current Condition Onset Date June 2019 History of Current Condition Hernia surgery in June and his pain levels increased. Pain is more on the right side and pain wraps down to the testicle on both sides but it is worse on the right side. He says it felt like a knife pain and at this point it is a little better. This lasted x 4 months and finally it started getting better. He has been told it is nerve pain from the femoral nerve. He wants to see if PT can help. He did have nerve pain prior to his surgery. The right side was more severe than the left. He reports prior to surgery he did have a physical bulge and it was a pretty big . He was experiencing nerve pain in the area of the right testicle. He does note he has some constipation and he had a bought of constipation prior to the hernia. He had been on [place] boat for 2 months and noted some constipation during this time as well as straining No other abdominal surgeries. Takes muscle relaxants at night for fibromyalgia, takes mortrin 400 mg, Pepsid for GERD that he takes at night, Had been taking gabapenton and occasionally oxycodone, sometimes takes tynelol and motrin combined. He describes a constant regular burning pain but not the sharp jabbing pains any more. Pt has a history of fibromyaliga and GERD. He does meditation and stretching . Treatment Goals Patient/Caregiver Goals Antonio's goals include decreasing pain so that he can avoid further surgery Current Functional Impairments (Reported) Functional Limitations- ADL's pain limits ADL's including lifting and bending activities PT-OP-C Subjective Start: 03/13/20 15:08 Freq: Status: Active Protocol: Document 05/07/20 17:15 [facility] (Rec: 05/07/20 17:34 [facility] [id number]) OP-PT Subjective Patient Comments Patient Comments Pt has been out on his boat the past couple of weeks. He notes he is stretching every day. He has been able to go hiking. He still has good and bad days PT-OP-F Manual Assessment Start: 03/12/20 12:59 Freq: Status: Active Protocol: Document 03/12/20 15:23 [facility] (Rec: 03/13/20 15:25 [facility] [id number]) Manual Assessments Soft Tissue Assessment Soft Tissue Mobility Assessment restrictions in the fascia of the abdominal wall, tightness right greater than left in the fascia over the inguinal hernia regair, limited flexibility of the iliopsoas and quadricpes PT-OP-J Posture/Palpation/Skin Start: 03/12/20 12:59 Freq: Status: Active Protocol: Document 03/13/20 15:06 [facility] (Rec: 03/13/20 15:08 [facility] [id number]) Palpation Assessment Location Three Palpation Location lower abdominal wall B Palpation Findings Soft Tissue Tightness,Muscle Guarding Two Palpation Location iliopsoas Palpation Findings Soft Tissue Tightness Palpation Details left greater than right iliopsoas tightness One Palpation Location quadriceps Palpation Findings Soft Tissue Tightness PT-OP-K Range of Motion Start: 03/12/20 12:59 Freq: Status: Active Protocol: Document 03/12/20 15:23 [facility] (Rec: 03/13/20 15:25 [facility] [id number]) Hip Goniometric Range of Motion Hip Left Extension 8 Right Hip ROM WFL No Extension 5 Hip ROM Limitations Hip ROM Limitations Soft Tissue Tightness Comments limited hip ROM into hip extension right greater than left Prone knee flexion limited due to quad tightness PT-OP-L Special Tests Start: 03/12/20 12:59 Freq: Status: Active Protocol: Document 03/12/20 15:23 [facility] (Rec: 03/13/20 15:25 [facility] [id number]) Special Tests Hip Special Tests Mook Test Results positive Comments iliopsoas tightness B PT-OP-Q Treatments Start: 03/12/20 12:59 Freq: Status: Active Protocol: Document 05/07/20 17:15 [facility] (Rec: 05/07/20 17:34 [facility] [email or web address]) Manual Therapy Treatment Soft Tissue Mobilization iliopsoas Body Location iliopsoas Comments release of both the iliacus and the psoas today in both sidelying and supine 1 Body Location MFR right lower abdominal wall Comments worked today over B lower abdominal wall, ILU massage, gentle MFR over B inguinal ligament region. Pt had good tolerance without c/o nerve pain Manual Techniques 1 Type manual quad and iliopsoas stretch Comments in prone and sidelying PT-OP-R Modalities Start: 03/14/20 17:48 Freq: Status: Active Protocol: Document 03/14/20 17:48 [facility] (Rec: 03/14/20 17:48 [facility] [email or web address]) Hot Pack/Cold Pack Treatment Cold Pack Location B anterior groin Patient Position Supine Patient Tolerance Good PT-OP-T Assessment and Plan Start: 03/12/20 12:59 Freq: Status: Active Protocol: Document 05/07/20 17:15 [facility] (Rec: 05/07/20 17:34 [facility] [id number]) Physical Therapy Assessment Assessment Summary Assessment Right side scar tissue felt today, swelling decreased overall Physical Therapy Plan Frequency and Duration Frequency of Treatment 2x/Week Duration of Treatment 8 Plan of Care Start Date 03/12/20 Plan of Care End Date 05/07/20 Therapeutic Interventions Therapeutic Interventions Home Exercise Program,Manual Therapy,Patient/Caregiver Education,Self-Care/Home Management,Soft Tissue Mobilization,Therapeutic Exercises Modalities Cold Pack/Ice Massage Other Therapeutic Interventions Femoral nerve glides Next Visit Focus/Plan Next Note Type Treatment Note Next Visit Plan continue to work on pelvic decompression and stabilization with the pelvic floor and transverse abdominal musculature
--- NOTE | 2020-05-30 17:45 | PT.OTN ---
Current Diagnoses Right lower quadrant pain (05/30/20) Left lower quadrant pain (05/30/20) Physical Therapy Treatment Note PT-OP-A Visit Information Start: 03/12/20 12:59 Freq: Status: Active Protocol: Document 05/30/20 13:41 [facility] (Rec: 05/30/20 13:42 [facility] [id number]) Out-Patient Physical Therapy Visit Information Visit Information Visit Type Treatment Note Visit Start Time 13:45 Visit Stop Time 14:30 Total Visit Minutes 45 Visit Number 9 PT-OP-B Current Condition Start: 03/12/20 12:59 Freq: Status: Active Protocol: Document 03/12/20 14:33 [facility] (Rec: 03/12/20 14:50 [facility] [id number]) Current Condition History of Current Condition Onset Date June 2019 History of Current Condition Hernia surgery in June and his pain levels increased. Pain is more on the right side and pain wraps down to the testicle on both sides but it is worse on the right side. He says it felt like a knife pain and at this point it is a little better. This lasted x 4 months and finally it started getting better. He has been told it is nerve pain from the femoral nerve. He wants to see if PT can help. He did have nerve pain prior to his surgery. The right side was more severe than the left. He reports prior to surgery he did have a physical bulge and it was a pretty big . He was experiencing nerve pain in the area of the right testicle. He does note he has some constipation and he had a bought of constipation prior to the hernia. He had been on his boat for 2 months and noted some constipation during this time as well as straining No other abdominal surgeries. Takes muscle relaxants at night for fibromyalgia, takes mortrin 400 mg, Pepsid for GERD that he takes at night, Had been taking gabapenton and occasionally oxycodone, sometimes takes tynelol and motrin combined. He describes a constant regular burning pain but not the sharp jabbing pains any more. Pt has a history of fibromyaliga and GERD. He does meditation and stretching . Treatment Goals Patient/Caregiver Goals Antonio's goals include decreasing pain so that he can avoid further surgery Current Functional Impairments (Reported) Functional Limitations- ADL's pain limits ADL's including lifting and bending activities PT-OP-C Subjective Start: 03/13/20 15:08 Freq: Status: Active Protocol: Document 05/30/20 13:42 [facility] (Rec: 05/30/20 13:49 [facility] [id number]) OP-PT Subjective Patient Comments Patient Comments Pt reports he has been continuing his exercises, he feels he is moving forward and making progress. HE has had a few episodes of pain but they are occasional. PT-OP-F Manual Assessment Start: 03/12/20 12:59 Freq: Status: Active Protocol: Document 03/12/20 15:23 [facility] (Rec: 03/13/20 15:25 [facility] [id number]) Manual Assessments Soft Tissue Assessment Soft Tissue Mobility Assessment restrictions in the fascia of the abdominal wall, tightness right greater than left in the fascia over the inguinal hernia regair, limited flexibility of the iliopsoas and quadricpes PT-OP-J Posture/Palpation/Skin Start: 03/12/20 12:59 Freq: Status: Active Protocol: Document 03/13/20 15:06 [facility] (Rec: 03/13/20 15:08 [facility] [id number]) Palpation Assessment Location Three Palpation Location lower abdominal wall B Palpation Findings Soft Tissue Tightness,Muscle Guarding Two Palpation Location iliopsoas Palpation Findings Soft Tissue Tightness Palpation Details left greater than right iliopsoas tightness One Palpation Location quadriceps Palpation Findings Soft Tissue Tightness PT-OP-K Range of Motion Start: 03/12/20 12:59 Freq: Status: Active Protocol: Document 03/12/20 15:23 [facility] (Rec: 03/13/20 15:25 [facility] [id number]) Hip Goniometric Range of Motion Hip Left Extension 8 Right Hip ROM WFL No Extension 5 Hip ROM Limitations Hip ROM Limitations Soft Tissue Tightness Comments limited hip ROM into hip extension right greater than left Prone knee flexion limited due to quad tightness PT-OP-L Special Tests Start: 03/12/20 12:59 Freq: Status: Active Protocol: Document 03/12/20 15:23 [facility] (Rec: 03/13/20 15:25 [facility] [id number]) Special Tests Hip Special Tests Mook Test Results positive Comments iliopsoas tightness B PT-OP-Q Treatments Start: 03/12/20 12:59 Freq: Status: Active Protocol: Document 05/30/20 13:42 [facility] (Rec: 05/30/20 13:49 [facility] [id number]) Manual Therapy Treatment Soft Tissue Mobilization 2 Body Location adductor release bilaterally iliopsoas Body Location iliopsoas Comments release of both the iliacus and the psoas today in both sidelying and supine 1 Body Location MFR right lower abdominal wall Comments worked today over B lower abdominal wall, ILU massage, gentle MFR over B inguinal ligament region. Pt had good tolerance without c/o nerve pain PT-OP-R Modalities Start: 03/14/20 17:48 Freq: Status: Active Protocol: Document 03/14/20 17:48 [facility] (Rec: 03/14/20 17:48 [facility] [id number]) Hot Pack/Cold Pack Treatment Cold Pack Location B anterior groin Patient Position Supine Patient Tolerance Good PT-OP-T Assessment and Plan Start: 03/12/20 12:59 Freq: Status: Active Protocol: Document 05/30/20 17:40 [facility] (Rec: 05/30/20 17:44 [facility] [id number]) Physical Therapy Assessment Goals Three Impairment Myofascial restrictions of the abdominal fascia right greater than left Intermediate Goal (LTG) Improved mobiilty of the fascial mobility of the anterior abdominal wall with stretches and manual therapy techniques GOOD PROGRESS AND GOOD TOLERANCE LTG Duration 8 weeks Two Impairment Decreased flexibility of the iliopsoas and quadriceps Short Term Goal (STG) Antonio is given a home stretching program for the anterior hips and abdominal wall and he feels independent with his program GOOD Progress and Antonio is working on his stretches at home STG Duration 6 weeks One Impairment Right greater than left inguinal pain rated 6/10 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
--- NOTE | 2020-05-30 17:45 | PT.OPPOC ---
Physical, Occupational & Speech Therapy At [facility] Current Diagnoses Right lower quadrant pain (05/30/20) Left lower quadrant pain (05/30/20) Visit Care Team Role Provider Type Matthew Guzman MD Primary Care Provider Physician Specialty: Internal Medicine Address: [address] [place] [address], [address], [address] Email: [email or web address] Sara Carranza MD Attending Provider Physician Referring Provider Specialty: General Surgery Address: [address] [place] [address], [address] Email: [email or web address] Plan Of Care PT-OP-T Assessment and Plan Start: 03/12/20 12:59 Freq: Status: Active Protocol: Document 05/30/20 17:40 [facility] (Rec: 05/30/20 17:44 [email or web address] [id number]) Physical Therapy Assessment Goals Three Impairment Myofascial restrictions of the abdominal fascia right greater than left Fdc Goal (LTG) Improved mobilty of the fascial tissue of the anterior abdominal wall with stretches and manual therapy techniques GOOD PROGRESS AND GOOD TOLERANCE LTG Duration 8 weeks Two Impairment Decreased flexibility of the iliopsoas and quadriceps Short Term Goal (STG) Antonio is given a home stretching program for the anterior hips and abdominal wall and he feels independent with his program GOOD Progress and Antonio is working on his stretches at home STG Duration 6 weeks One Impairment Right greater than left inguinal pain rated 6/10 Cotton Ball Bagger Goal (LTG) Antonio notes a overall reduction of pain following PT with pain levels dropping to 1-2/10 GOOD PROGRESS LTG Duration 8 weeks Assessment Summary Assessment Pt still has more scar tissue irritation and muscle tightness on the right but overall the myofascial tightness is improving and Antonio feels PT is helping him. He would like to continue PT Physical Therapy Plan Frequency and Duration Frequency of Treatment 2x/Week Duration of Treatment 8 Plan of Care Start Date 05/30/20 Plan of Care End Date 07/25/20 Plan of Care Dates Plan of Care Start Date 05/30/20 Plan of Care End Date 07/25/20 Electronically Signed by: Sanam Carson, PT 05/30/20 1745 Please Sign and Return: I have reviewed this Plan of Care and certify that the skilled therapy services above are required to meet the patient?s needs. Physician Signature Date Printed Name and Credentials Clinical Instructor Signature Printed Name and Credentials
--- NOTE | 2020-06-27 14:30 | PT.OTN ---
Current Diagnoses Right lower quadrant pain (07/02/20) Left lower quadrant pain (07/02/20) Physical Therapy Treatment Note PT-OP-A Visit Information Start: 03/12/20 12:59 Freq: Status: Active Protocol: Document 06/27/20 14:30 [facility] (Rec: 07/02/20 11:56 [facility] [email or web address]) Out-Patient Physical Therapy Visit Information Visit Information Visit Type Treatment Note Visit Start Time 14:30 Visit Stop Time 15:15 Total Visit Minutes 45 Visit Number 10 PT-OP-B Current Condition Start: 03/12/20 12:59 Freq: Status: Active Protocol: Document 03/12/20 14:33 [facility] (Rec: 03/12/20 14:50 [facility] [id number]) Current Condition History of Current Condition Onset Date June 2019 History of Current Condition Hernia surgery in June and his pain levels increased. Pain is more on the right side and pain wraps down to the testicle on both sides but it is worse on the right side. He says it felt like a knife pain and at this point it is a little better. This lasted x 4 months and finally it started getting better. He has been told it is nerve pain from the femoral nerve. He wants to see if PT can help. He did have nerve pain prior to his surgery. The right side was more severe than the left. He reports prior to surgery he did have a physical bulge and it was a pretty big . He was experiencing nerve pain in the area of the right testicle. He does note he has some constipation and he had a bought of constipation prior to the hernia. He had been on his boat for 2 months and noted some constipation during this time as well as straining No other abdominal surgeries. Takes muscle relaxants at night for fibromyalgia, takes mortrin 400 mg, Pepsid for GERD that he takes at night, Had been taking gabapenton and occasionally oxycodone, sometimes takes tynelol and motrin combined. He describes a constant regular burning pain but not the sharp jabbing pains any more. Pt has a history of fibromyaliga and GERD. He does meditation and stretching . Treatment Goals Patient/Caregiver Goals Antonio's goals include decreasing pain so that he can avoid further surgery Current Functional Impairments (Reported) Functional Limitations- ADL's pain limits ADL's including lifting and bending activities PT-OP-C Subjective Start: 03/13/20 15:08 Freq: Status: Active Protocol: Document 06/27/20 14:30 [facility] (Rec: 07/02/20 11:56 [facility] [email or web address]) OP-PT Subjective Patient Comments Patient Comments Antonio returns to PT after being on his boat off and on for the past month. He is reporting increased leg pain and adductor pain and worsening pain into his groin this past month PT-OP-F Manual Assessment Start: 03/12/20 12:59 Freq: Status: Active Protocol: Document 03/12/20 15:23 [facility] (Rec: 03/13/20 15:25 [facility] [id number]) Manual Assessments Soft Tissue Assessment Soft Tissue Mobility Assessment restrictions in the fascia of the abdominal wall, tightness right greater than left in the fascia over the inguinal hernia regair, limited flexibility of the iliopsoas and quadricpes PT-OP-J Posture/Palpation/Skin Start: 03/12/20 12:59 Freq: Status: Active Protocol: Document 03/13/20 15:06 [facility] (Rec: 03/13/20 15:08 [facility] [id number]) Palpation Assessment Location Three Palpation Location lower abdominal wall B Palpation Findings Soft Tissue Tightness,Muscle Guarding Two Palpation Location iliopsoas Palpation Findings Soft Tissue Tightness Palpation Details left greater than right iliopsoas tightness One Palpation Location quadriceps Palpation Findings Soft Tissue Tightness PT-OP-K Range of Motion Start: 03/12/20 12:59 Freq: Status: Active Protocol: Document 03/12/20 15:23 [facility] (Rec: 03/13/20 15:25 [facility] [id number]) Hip Goniometric Range of Motion Hip Left Extension 8 Right Hip ROM WFL No Extension 5 Hip ROM Limitations Hip ROM Limitations Soft Tissue Tightness Comments limited hip ROM into hip extension right greater than left Prone knee flexion limited due to quad tightness PT-OP-L Special Tests Start: 03/12/20 12:59 Freq: Status: Active Protocol: Document 03/12/20 15:23 [facility] (Rec: 03/13/20 15:25 [facility] [id number]) Special Tests Hip Special Tests Mook Test Results positive Comments iliopsoas tightness B PT-OP-Q Treatments Start: 03/12/20 12:59 Freq: Status: Active Protocol: Document 06/27/20 14:30 [facility] (Rec: 07/02/20 11:56 [facility] [email or web address]) Therapeutic Exercises Supine Exercises adductor stretch with strap Supine Exercise Name adductor stretch with strap Reps/Minutes hold 1-2 minutes ITB stretch with strap Supine Exercise Name ITB stretch with strap 1 Supine Exercise Name iliopsoas stretch in a supine position Side bilateral Reps/Minutes hold 1-2 minutes Manual Therapy Treatment Soft Tissue Mobilization quad and ITB release Body Location manual quad and ITB Release 2 Body Location adductor release bilaterally iliopsoas Body Location iliopsoas Comments release of both the iliacus and the psoas today in both sidelying and supine 1 Body Location MFR right lower abdominal wall Comments worked today over B lower abdominal wall, ILU massage, gentle MFR over B inguinal ligament region. Pt had good tolerance without c/o nerve pain Manual Techniques 1 Type manual quad and iliopsoas stretch Comments in prone and sidelying PT-OP-R Modalities Start: 03/14/20 17:48 Freq: Status: Active Protocol: Document 03/14/20 17:48 [facility] (Rec: 03/14/20 17:48 [facility] [email or web address]) Hot Pack/Cold Pack Treatment Cold Pack Location B anterior groin Patient Position Supine Patient Tolerance Good PT-OP-T Assessment and Plan Start: 03/12/20 12:59 Freq: Status: Active Protocol: Document 06/27/20 14:30 [facility] (Rec: 07/02/20 11:56 [facility] [email or web address]) Physical Therapy Assessment Assessment Summary Assessment I added in a adductor stretch for Antonio today and worked on releasing the quads and adductors. He tolerated treatment well today Physical Therapy Plan Frequency and Duration Frequency of Treatment 2x/Week Duration of Treatment 8 Plan of Care Start Date 05/30/20 Plan of Care End Date 07/25/20 Therapeutic Interventions Therapeutic Interventions Home Exercise Program,Manual Therapy,Patient/Caregiver Education,Self-Care/Home Management,Soft Tissue Mobilization,Therapeutic Exercises Modalities Cold Pack/Ice Massage Other Therapeutic Interventions Femoral nerve glides Next Visit Focus/Plan Next Note Type Treatment Note Next Visit Plan continue to work on pelvic decompression and stabilization with the pelvic floor and transverse abdominal musculature
--- NOTE | 2020-07-02 11:59 | PT.OTN ---
Current Diagnoses Right lower quadrant pain (07/02/20) Left lower quadrant pain (07/02/20) Physical Therapy Treatment Note PT-OP-A Visit Information Start: 03/12/20 12:59 Freq: Status: Active Protocol: Document 07/02/20 11:56 [facility] (Rec: 07/02/20 11:59 [facility] [email or web address]) Out-Patient Physical Therapy Visit Information Visit Information Visit Type Treatment Note Visit Start Time 09:45 Visit Stop Time 10:30 Total Visit Minutes 45 Visit Number 11 PT-OP-B Current Condition Start: 03/12/20 12:59 Freq: Status: Active Protocol: Document 03/12/20 14:33 [facility] (Rec: 03/12/20 14:50 [facility] [id number]) Current Condition History of Current Condition Onset Date June 2019 History of Current Condition Hernia surgery in June and his pain levels increased. Pain is more on the right side and pain wraps down to the testicle on both sides but it is worse on the right side. He says it felt like a knife pain and at this point it is a little better. This lasted x 4 months and finally it started getting better. He has been told it is nerve pain from the femoral nerve. He wants to see if PT can help. He did have nerve pain prior to his surgery. The right side was more severe than the left. He reports prior to surgery he did have a physical bulge and it was a pretty big . He was experiencing nerve pain in the area of the right testicle. He does note he has some constipation and he had a bought of constipation prior to the hernia. He had been on his boat for 2 months and noted some constipation during this time as well as straining No other abdominal surgeries. Takes muscle relaxants at night for fibromyalgia, takes mortrin 400 mg, Pepsid for GERD that he takes at night, Had been taking gabapenton and occasionally oxycodone, sometimes takes tynelol and motrin combined. He describes a constant regular burning pain but not the sharp jabbing pains any more. Pt has a history of fibromyaliga and GERD. He does meditation and stretching . Treatment Goals Patient/Caregiver Goals Antonio's goals include decreasing pain so that he can avoid further surgery Current Functional Impairments (Reported) Functional Limitations- ADL's pain limits ADL's including lifting and bending activities PT-OP-C Subjective Start: 03/13/20 15:08 Freq: Status: Active Protocol: Document 07/02/20 11:56 [facility] (Rec: 07/02/20 11:59 [facility] [email or web address]) OP-PT Subjective Patient Comments Patient Comments Antonio reports he is doing a little better this week. He has been working on his adductor stretches at home and feels this has helped some. PT-OP-F Manual Assessment Start: 03/12/20 12:59 Freq: Status: Active Protocol: Document 03/12/20 15:23 [facility] (Rec: 03/13/20 15:25 [facility] [id number]) Manual Assessments Soft Tissue Assessment Soft Tissue Mobility Assessment restrictions in the fascia of the abdominal wall, tightness right greater than left in the fascia over the inguinal hernia regair, limited flexibility of the iliopsoas and quadricpes PT-OP-J Posture/Palpation/Skin Start: 03/12/20 12:59 Freq: Status: Active Protocol: Document 03/13/20 15:06 [facility] (Rec: 03/13/20 15:08 [facility] [id number]) Palpation Assessment Location Three Palpation Location lower abdominal wall B Palpation Findings Soft Tissue Tightness,Muscle Guarding Two Palpation Location iliopsoas Palpation Findings Soft Tissue Tightness Palpation Details left greater than right iliopsoas tightness One Palpation Location quadriceps Palpation Findings Soft Tissue Tightness PT-OP-K Range of Motion Start: 03/12/20 12:59 Freq: Status: Active Protocol: Document 03/12/20 15:23 [facility] (Rec: 03/13/20 15:25 [facility] [id number]) Hip Goniometric Range of Motion Hip Left Extension 8 Right Hip ROM WFL No Extension 5 Hip ROM Limitations Hip ROM Limitations Soft Tissue Tightness Comments limited hip ROM into hip extension right greater than left Prone knee flexion limited due to quad tightness PT-OP-L Special Tests Start: 03/12/20 12:59 Freq: Status: Active Protocol: Document 03/12/20 15:23 [facility] (Rec: 03/13/20 15:25 [facility] [id number]) Special Tests Hip Special Tests Mook Test Results positive Comments iliopsoas tightness B PT-OP-Q Treatments Start: 03/12/20 12:59 Freq: Status: Active Protocol: Document 07/02/20 11:56 [facility] (Rec: 07/02/20 11:59 [facility] [email or web address]) Manual Therapy Treatment Soft Tissue Mobilization quad and ITB release Body Location manual quad and ITB Release 2 Body Location adductor release bilaterally iliopsoas Body Location iliopsoas Comments release of both the iliacus and the psoas today in both sidelying and supine 1 Body Location MFR right lower abdominal wall Comments worked today over B lower abdominal wall, ILU massage, gentle MFR over B inguinal ligament region. Pt had good tolerance without c/o nerve pain PT-OP-R Modalities Start: 03/14/20 17:48 Freq: Status: Active Protocol: Document 03/14/20 17:48 [facility] (Rec: 03/14/20 17:48 [facility] [email or web address]) Hot Pack/Cold Pack Treatment Cold Pack Location B anterior groin Patient Position Supine Patient Tolerance Good PT-OP-T Assessment and Plan Start: 03/12/20 12:59 Freq: Status: Active Protocol: Document 07/02/20 11:56 [facility] (Rec: 07/02/20 11:59 [facility] [email or web address]) Physical Therapy Assessment Assessment Summary Assessment worked with diaphragmatic breathing today as I released the iliopsoas Antonio tolerated this well. He will continue to work on his stretches at home Physical Therapy Plan Frequency and Duration Frequency of Treatment 2x/Week Duration of Treatment 8 Plan of Care Start Date 05/30/20 Plan of Care End Date 07/25/20
--- NOTE | 2020-07-07 16:07 | PT.OTN ---
Current Diagnoses Right lower quadrant pain (07/04/20) Left lower quadrant pain (07/04/20) Physical Therapy Treatment Note PT-OP-A Visit Information Start: 03/12/20 12:59 Freq: Status: Active Protocol: Document 07/04/20 10:30 [facility] (Rec: 07/07/20 16:07 [facility] [email or web address]) Out-Patient Physical Therapy Visit Information Visit Information Visit Type Treatment Note Visit Start Time 10:30 Visit Stop Time 11:15 Total Visit Minutes 45 Visit Number 12 PT-OP-B Current Condition Start: 03/12/20 12:59 Freq: Status: Active Protocol: Document 03/12/20 14:33 [facility] (Rec: 03/12/20 14:50 [facility] [id number]) Current Condition History of Current Condition Onset Date June 2019 History of Current Condition Hernia surgery in June and his pain levels increased. Pain is more on the right side and pain wraps down to the testicle on both sides but it is worse on the right side. He says it felt like a knife pain and at this point it is a little better. This lasted x 4 months and finally it started getting better. He has been told it is nerve pain from the femoral nerve. He wants to see if PT can help. He did have nerve pain prior to his surgery. The right side was more severe than the left. He reports prior to surgery he did have a physical bulge and it was a pretty big . He was experiencing nerve pain in the area of the right testicle. He does note he has some constipation and he had a bought of constipation prior to the hernia. He had been on his boat for 2 months and noted some constipation during this time as well as straining No other abdominal surgeries. Takes muscle relaxants at night for fibromyalgia, takes mortrin 400 mg, Pepsid for GERD that he takes at night, Had been taking gabapenton and occasionally oxycodone, sometimes takes tynelol and motrin combined. He describes a constant regular burning pain but not the sharp jabbing pains any more. Pt has a history of fibromyaliga and GERD. He does meditation and stretching . Treatment Goals Patient/Caregiver Goals Antonio's goals include decreasing pain so that he can avoid further surgery Current Functional Impairments (Reported) Functional Limitations- ADL's pain limits ADL's including lifting and bending activities PT-OP-C Subjective Start: 03/13/20 15:08 Freq: Status: Active Protocol: Document 07/04/20 10:30 [facility] (Rec: 07/07/20 16:07 [facility] [email or web address]) OP-PT Subjective Patient Comments Patient Comments Antonio states he has his orthotics worked on and adjusted and he feels this has helped his pain a little. PT-OP-F Manual Assessment Start: 03/12/20 12:59 Freq: Status: Active Protocol: Document 03/12/20 15:23 [facility] (Rec: 03/13/20 15:25 [facility] [id number]) Manual Assessments Soft Tissue Assessment Soft Tissue Mobility Assessment restrictions in the fascia of the abdominal wall, tightness right greater than left in the fascia over the inguinal hernia regair, limited flexibility of the iliopsoas and quadricpes PT-OP-J Posture/Palpation/Skin Start: 03/12/20 12:59 Freq: Status: Active Protocol: Document 03/13/20 15:06 [facility] (Rec: 03/13/20 15:08 [facility] [id number]) Palpation Assessment Location Three Palpation Location lower abdominal wall B Palpation Findings Soft Tissue Tightness,Muscle Guarding Two Palpation Location iliopsoas Palpation Findings Soft Tissue Tightness Palpation Details left greater than right iliopsoas tightness One Palpation Location quadriceps Palpation Findings Soft Tissue Tightness PT-OP-K Range of Motion Start: 03/12/20 12:59 Freq: Status: Active Protocol: Document 03/12/20 15:23 [facility] (Rec: 03/13/20 15:25 [facility] [id number]) Hip Goniometric Range of Motion Hip Left Extension 8 Right Hip ROM WFL No Extension 5 Hip ROM Limitations Hip ROM Limitations Soft Tissue Tightness Comments limited hip ROM into hip extension right greater than left Prone knee flexion limited due to quad tightness PT-OP-L Special Tests Start: 03/12/20 12:59 Freq: Status: Active Protocol: Document 03/12/20 15:23 [facility] (Rec: 03/13/20 15:25 [facility] [id number]) Special Tests Hip Special Tests Mook Test Results positive Comments iliopsoas tightness B PT-OP-Q Treatments Start: 03/12/20 12:59 Freq: Status: Active Protocol: Document 07/04/20 10:30 [facility] (Rec: 07/07/20 16:07 [facility] [email or web address]) Manual Therapy Treatment Soft Tissue Mobilization quad and ITB release Body Location manual quad and ITB Release 2 Body Location adductor release bilaterally iliopsoas Body Location iliopsoas Comments release of both the iliacus and the psoas today in both sidelying and supine 1 Body Location MFR right lower abdominal wall Comments worked today over B lower abdominal wall, ILU massage, gentle MFR over B inguinal ligament region. Pt had good tolerance without c/o nerve pain PT-OP-R Modalities Start: 03/14/20 17:48 Freq: Status: Active Protocol: Document 03/14/20 17:48 [facility] (Rec: 03/14/20 17:48 [facility] [email or web address]) Hot Pack/Cold Pack Treatment Cold Pack Location B anterior groin Patient Position Supine Patient Tolerance Good PT-OP-T Assessment and Plan Start: 03/12/20 12:59 Freq: Status: Active Protocol: Document 07/04/20 10:30 [facility] (Rec: 07/07/20 16:07 [facility] [email or web address]) Physical Therapy Assessment Assessment Summary Assessment Antonio did better today and there was decreased guarding in his adductors. Having his orthotics adjusted may have contributed to his pain reducing again. He will slowly work up to more time in his orthotics Physical Therapy Plan Frequency and Duration Frequency of Treatment 2x/Week Duration of Treatment 8 Plan of Care Start Date 05/30/20 Plan of Care End Date 07/25/20
--- NOTE | 2020-07-09 16:57 | PT.OTN ---
Current Diagnoses Right lower quadrant pain (07/09/20) Left lower quadrant pain (07/09/20) Physical Therapy Treatment Note PT-OP-A Visit Information Start: 03/12/20 12:59 Freq: Status: Active Protocol: Document 07/09/20 13:45 [facility] (Rec: 07/09/20 13:46 [facility] [email or web address]) Out-Patient Physical Therapy Visit Information Visit Information Visit Type Treatment Note Visit Start Time 13:45 Visit Stop Time 14:30 Total Visit Minutes 45 Visit Number 13 PT-OP-B Current Condition Start: 03/12/20 12:59 Freq: Status: Active Protocol: Document 03/12/20 14:33 [facility] (Rec: 03/12/20 14:50 [facility] [id number]) Current Condition History of Current Condition Onset Date June 2019 History of Current Condition Hernia surgery in June and his pain levels increased. Pain is more on the right side and pain wraps down to the testicle on both sides but it is worse on the right side. He says it felt like a knife pain and at this point it is a little better. This lasted x 4 months and finally it started getting better. He has been told it is nerve pain from the femoral nerve. He wants to see if PT can help. He did have nerve pain prior to his surgery. The right side was more severe than the left. He reports prior to surgery he did have a physical bulge and it was a pretty big . He was experiencing nerve pain in the area of the right testicle. He does note he has some constipation and he had a bought of constipation prior to the hernia. He had been on [place] boat for 2 months and noted some constipation during this time as well as straining No other abdominal surgeries. Takes muscle relaxants at night for fibromyalgia, takes mortrin 400 mg, Pepsid for GERD that he takes at night, Had been taking gabapenton and occasionally oxycodone, sometimes takes tynelol and motrin combined. He describes a constant regular burning pain but not the sharp jabbing pains any more. Pt has a history of fibromyaliga and GERD. He does meditation and stretching . Treatment Goals Patient/Caregiver Goals Antonio's goals include decreasing pain so that he can avoid further surgery Current Functional Impairments (Reported) Functional Limitations- ADL's pain limits ADL's including lifting and bending activities PT-OP-C Subjective Start: 03/13/20 15:08 Freq: Status: Active Protocol: Document 07/09/20 15:45 [facility] (Rec: 07/09/20 15:48 [facility] [email or web address]) OP-PT Subjective Patient Comments Patient Comments Antonio states he is doing a little better and was able to walk 3.5 miles PT-OP-F Manual Assessment Start: 03/12/20 12:59 Freq: Status: Active Protocol: Document 03/12/20 15:23 [facility] (Rec: 03/13/20 15:25 [facility] [id number]) Manual Assessments Soft Tissue Assessment Soft Tissue Mobility Assessment restrictions in the fascia of the abdominal wall, tightness right greater than left in the fascia over the inguinal hernia regair, limited flexibility of the iliopsoas and quadricpes PT-OP-J Posture/Palpation/Skin Start: 03/12/20 12:59 Freq: Status: Active Protocol: Document 03/13/20 15:06 [facility] (Rec: 03/13/20 15:08 [facility] [id number]) Palpation Assessment Location Three Palpation Location lower abdominal wall B Palpation Findings Soft Tissue Tightness,Muscle Guarding Two Palpation Location iliopsoas Palpation Findings Soft Tissue Tightness Palpation Details left greater than right iliopsoas tightness One Palpation Location quadriceps Palpation Findings Soft Tissue Tightness PT-OP-K Range of Motion Start: 03/12/20 12:59 Freq: Status: Active Protocol: Document 03/12/20 15:23 [facility] (Rec: 03/13/20 15:25 [facility] [id number]) Hip Goniometric Range of Motion Hip Left Extension 8 Right Hip ROM WFL No Extension 5 Hip ROM Limitations Hip ROM Limitations Soft Tissue Tightness Comments limited hip ROM into hip extension right greater than left Prone knee flexion limited due to quad tightness PT-OP-L Special Tests Start: 03/12/20 12:59 Freq: Status: Active Protocol: Document 03/12/20 15:23 [facility] (Rec: 03/13/20 15:25 [facility] [id number]) Special Tests Hip Special Tests Mook Test Results positive Comments iliopsoas tightness B PT-OP-Q Treatments Start: 03/12/20 12:59 Freq: Status: Active Protocol: Document 07/09/20 15:45 [facility] (Rec: 07/09/20 15:48 [facility] [email or web address]) Manual Therapy Treatment Soft Tissue Mobilization quad and ITB release Body Location manual quad and ITB Release 2 Body Location adductor release bilaterally iliopsoas Body Location iliopsoas Comments release of both the iliacus and the psoas today in both sidelying and supine 1 Body Location MFR right lower abdominal wall Comments worked today over B lower abdominal wall, ILU massage, gentle MFR over B inguinal ligament region. Pt had good tolerance without c/o nerve pain PT-OP-R Modalities Start: 03/14/20 17:48 Freq: Status: Active Protocol: Document 03/14/20 17:48 [facility] (Rec: 03/14/20 17:48 [facility] [email or web address]) Hot Pack/Cold Pack Treatment Cold Pack Location B anterior groin Patient Position Supine Patient Tolerance Good PT-OP-T Assessment and Plan Start: 03/12/20 12:59 Freq: Status: Active Protocol: Document 07/09/20 15:45 [facility] (Rec: 07/09/20 15:48 [facility] [email or web address]) Physical Therapy Assessment Assessment Summary Assessment Antonio tolerated treatment well today, he is working on his diaphragmatic breathing with manual release of the iliopsoas and quads. covering machine tender right ilioinguinal region Physical Therapy Plan Frequency and Duration Frequency of Treatment 2x/Week Duration of Treatment 8 Plan of Care Start Date 05/30/20 Plan of Care End Date 07/25/20
--- NOTE | 2020-07-11 15:35 | PT.OPPOC ---
Physical, Occupational & Speech Therapy At [facility] Current Diagnoses Right lower quadrant pain (07/11/20) Left lower quadrant pain (07/11/20) Visit Care Team Role Provider Type Matthew Guzman MD Primary Care Provider Physician Specialty: Internal Medicine Address: [address] [place] [address], [address], [address] Email: [email or web address] Sara Carranza MD Attending Provider Physician Referring Provider Specialty: General Surgery Address: [address] [place] [address], [id number] Email: [email or web address] Plan Of Care PT-OP-T Assessment and Plan Start: 03/12/20 12:59 Freq: Status: Active Protocol: Document 07/11/20 15:31 [facility] (Rec: 07/11/20 15:35 [facility] [email or web address]) Physical Therapy Assessment Goals Three Impairment Myofascial restrictions of the abdominal fascia right greater than left Long-Term Goal (LTG) Improved mobiilty of the fascial mobility of the anterior abdominal wall with stretches and manual therapy techniques GOOD PROGRESS AND GOOD TOLERANCE LTG Duration 8 weeks Two Impairment Decreased flexibility of the iliopsoas and quadriceps Short Term Goal (STG) Antonio is given a home stretching program for the anterior hips and abdominal wall and he feels independent with his program GOOD Progress and Antonio is working on his stretches at home STG Duration 6 weeks One Impairment Right greater than left inguinal pain rated 6/10 Long-Term Goal (LTG) Antonio notes a overall reduction of pain following PT with pain levels dropping to 1-2/10 GOOD PROGRESS and Antonio has been able to increase his walking distance to 3.5 miles LTG Duration 8 weeks Assessment Summary Assessment Antonio has been working on his stretches and diaphragmatic breathing at home. He has recently been fitted for new orthotics which may be contributing to his hamstring symptoms. He would like additional therapy visits as he feels PT is helping with the ilioinguinal pain symptoms Physical Therapy Plan Frequency and Duration Frequency of Treatment 2x/Week Duration of Treatment 8 Plan of Care Start Date 05/30/20 Plan of Care End Date 07/25/20 Next Visit Focus/Plan Next Note Type Treatment Note Plan of Care Dates Plan of Care Start Date 05/30/20 Plan of Care End Date 07/25/20 Electronically Signed by: Sanam Carson, PT 07/11/20 3121 Please Sign and Return: I have reviewed this Plan of Care and certify that the skilled therapy services above are required to meet the patient?s needs. Physician Signature Date Printed Name and Credentials Clinical Instructor Signature Printed Name and Credentials
--- NOTE | 2020-07-11 15:36 | PT.OTN ---
Current Diagnoses Right lower quadrant pain (07/11/20) Left lower quadrant pain (07/11/20) Physical Therapy Treatment Note PT-OP-A Visit Information Start: 03/12/20 12:59 Freq: Status: Active Protocol: Document 07/11/20 13:47 [facility] (Rec: 07/11/20 13:47 [facility] [email or web address]) Out-Patient Physical Therapy Visit Information Visit Information Visit Type Treatment Note Visit Start Time 13:45 Visit Stop Time 14:30 Total Visit Minutes 45 Visit Number 14 PT-OP-B Current Condition Start: 03/12/20 12:59 Freq: Status: Active Protocol: Document 03/12/20 14:33 [facility] (Rec: 03/12/20 14:50 [facility] [id number]) Current Condition History of Current Condition Onset Date June 2019 History of Current Condition Hernia surgery in June and his pain levels increased. Pain is more on the right side and pain wraps down to the testicle on both sides but it is worse on the right side. He says it felt like a knife pain and at this point it is a little better. This lasted x 4 months and finally it started getting better. He has been told it is nerve pain from the femoral nerve. He wants to see if PT can help. He did have nerve pain prior to his surgery. The right side was more severe than the left. He reports prior to surgery he did have a physical bulge and it was a pretty big . He was experiencing nerve pain in the area of the right testicle. He does note he has some constipation and he had a bought of constipation prior to the hernia. He had been on his boat for 2 months and noted some constipation during this time as well as straining No other abdominal surgeries. Takes muscle relaxants at night for fibromyalgia, takes mortrin 400 mg, Pepsid for GERD that he takes at night, Had been taking gabapenton and occasionally oxycodone, sometimes takes tynelol and motrin combined. He describes a constant regular burning pain but not the sharp jabbing pains any more. Pt has a history of fibromyaliga and GERD. He does meditation and stretching . Treatment Goals Patient/Caregiver Goals Antonio's goals include decreasing pain so that he can avoid further surgery Current Functional Impairments (Reported) Functional Limitations- ADL's pain limits ADL's including lifting and bending activities PT-OP-C Subjective Start: 03/13/20 15:08 Freq: Status: Active Protocol: Document 07/11/20 15:31 [facility] (Rec: 07/11/20 15:35 [facility] [email or web address]) OP-PT Subjective Patient Comments Patient Comments Antonio has been walking more, he has experienced some hamstring pain this past week that is new PT-OP-F Manual Assessment Start: 03/12/20 12:59 Freq: Status: Active Protocol: Document 03/12/20 15:23 [facility] (Rec: 03/13/20 15:25 [facility] [id number]) Manual Assessments Soft Tissue Assessment Soft Tissue Mobility Assessment restrictions in the fascia of the abdominal wall, tightness right greater than left in the fascia over the inguinal hernia regair, limited flexibility of the iliopsoas and quadricpes PT-OP-J Posture/Palpation/Skin Start: 03/12/20 12:59 Freq: Status: Active Protocol: Document 03/13/20 15:06 [facility] (Rec: 03/13/20 15:08 [facility] [id number]) Palpation Assessment Location Three Palpation Location lower abdominal wall B Palpation Findings Soft Tissue Tightness,Muscle Guarding Two Palpation Location iliopsoas Palpation Findings Soft Tissue Tightness Palpation Details left greater than right iliopsoas tightness One Palpation Location quadriceps Palpation Findings Soft Tissue Tightness PT-OP-K Range of Motion Start: 03/12/20 12:59 Freq: Status: Active Protocol: Document 03/12/20 15:23 [facility] (Rec: 03/13/20 15:25 [facility] [id number]) Hip Goniometric Range of Motion Hip Left Extension 8 Right Hip ROM WFL No Extension 5 Hip ROM Limitations Hip ROM Limitations Soft Tissue Tightness Comments limited hip ROM into hip extension right greater than left Prone knee flexion limited due to quad tightness PT-OP-L Special Tests Start: 03/12/20 12:59 Freq: Status: Active Protocol: Document 03/12/20 15:23 [facility] (Rec: 03/13/20 15:25 [facility] [id number]) Special Tests Hip Special Tests Mook Test Results positive Comments iliopsoas tightness B PT-OP-Q Treatments Start: 03/12/20 12:59 Freq: Status: Active Protocol: Document 07/11/20 15:31 [facility] (Rec: 07/11/20 15:35 [facility] [email or web address]) Manual Therapy Treatment Soft Tissue Mobilization quad and ITB release Body Location manual quad and ITB Release 2 Body Location adductor release bilaterally iliopsoas Body Location iliopsoas Comments release of both the iliacus and the psoas today in both sidelying and supine PT-OP-R Modalities Start: 03/14/20 17:48 Freq: Status: Active Protocol: Document 03/14/20 17:48 [facility] (Rec: 03/14/20 17:48 [facility] [email or web address]) Hot Pack/Cold Pack Treatment Cold Pack Location B anterior groin Patient Position Supine Patient Tolerance Good PT-OP-T Assessment and Plan Start: 03/12/20 12:59 Freq: Status: Active Protocol: Document 07/11/20 15:31 [facility] (Rec: 07/11/20 15:35 [facility] [email or web address]) Physical Therapy Assessment Goals Three Impairment Myofascial restrictions of the abdominal fascia right greater than left Casino Porter Goal (LTG) Improved mobiilty of the fascial mobility of the anterior abdominal wall with stretches and manual therapy techniques GOOD PROGRESS AND GOOD TOLERANCE LTG Duration 8 weeks Two Impairment Decreased flexibility of the iliopsoas and quadriceps Short Term Goal (STG) Antonio is given a home stretching program for the anterior hips and abdominal wall and he feels independent with his program GOOD Progress and Antonio is working on his stretches at home STG Duration 6 weeks One Impairment Right greater than left inguinal pain rated 6/10 Mcfp Goal (LTG) Antonio notes a overall reduction of pain following PT with pain levels dropping to 1-2/10 GOOD PROGRESS and Antonio has been able to increase his walking distance to 3.5 miles LTG Duration 8 weeks Assessment Summary Assessment Antonio has been working on his stretches and diaphragmatic breathing at home. He has recently been fitted for new orthotics which may be contributing to his hamstring symptoms. He would like additional therapy visits as he feels PT is helping with the ilioinguinal pain symptoms Physical Therapy Plan Frequency and Duration Frequency of Treatment 2x/Week Duration of Treatment 8 Plan of Care Start Date 05/30/20 Plan of Care End Date 07/25/20 Next Visit Focus/Plan Next Note Type Treatment Note
--- NOTE | 2020-07-18 15:09 | PT.OTN ---
Current Diagnoses Right lower quadrant pain (07/18/20) Left lower quadrant pain (07/18/20) Physical Therapy Treatment Note PT-OP-A Visit Information Start: 03/12/20 12:59 Freq: Status: Active Protocol: Document 07/18/20 09:41 [facility] (Rec: 07/18/20 09:41 [facility] [id number]) Out-Patient Physical Therapy Visit Information Visit Information Visit Type Progress Note Visit Start Time 09:45 Visit Stop Time 10:30 Total Visit Minutes 45 Visit Number 15 PT-OP-B Current Condition Start: 03/12/20 12:59 Freq: Status: Active Protocol: Document 03/12/20 14:33 [facility] (Rec: 03/12/20 14:50 [facility] [id number]) Current Condition History of Current Condition Onset Date June 2019 History of Current Condition Hernia surgery in June and his pain levels increased. Pain is more on the right side and pain wraps down to the testicle on both sides but it is worse on the right side. He says it felt like a knife pain and at this point it is a little better. This lasted x 4 months and finally it started getting better. He has been told it is nerve pain from the femoral nerve. He wants to see if PT can help. He did have nerve pain prior to his surgery. The right side was more severe than the left. He reports prior to surgery he did have a physical bulge and it was a pretty big . He was experiencing nerve pain in the area of the right testicle. He does note he has some constipation and he had a bought of constipation prior to the hernia. He had been on his boat for 2 months and noted some constipation during this time as well as straining No other abdominal surgeries. Takes muscle relaxants at night for fibromyalgia, takes mortrin 400 mg, Pepsid for GERD that he takes at night, Had been taking gabapenton and occasionally oxycodone, sometimes takes tynelol and motrin combined. He describes a constant regular burning pain but not the sharp jabbing pains any more. Pt has a history of fibromyaliga and GERD. He does meditation and stretching . Treatment Goals Patient/Caregiver Goals Aryan's goals include decreasing pain so that he can avoid further surgery Current Functional Impairments (Reported) Functional Limitations- ADL's pain limits ADL's including lifting and bending activities PT-OP-C Subjective Start: 03/13/20 15:08 Freq: Status: Active Protocol: Document 07/18/20 15:00 [facility] (Rec: 07/18/20 15:09 [facility] [id number]) OP-PT Subjective Patient Comments Patient Comments Aryan reports he is still having leg pain and it is now in the hamstrings as well. PT-OP-F Manual Assessment Start: 03/12/20 12:59 Freq: Status: Active Protocol: Document 03/12/20 15:23 [facility] (Rec: 03/13/20 15:25 [facility] [id number]) Manual Assessments Soft Tissue Assessment Soft Tissue Mobility Assessment restrictions in the fascia of the abdominal wall, tightness right greater than left in the fascia over the inguinal hernia regair, limited flexibility of the iliopsoas and quadricpes PT-OP-J Posture/Palpation/Skin Start: 03/12/20 12:59 Freq: Status: Active Protocol: Document 03/13/20 15:06 [facility] (Rec: 03/13/20 15:08 [facility] [id number]) Palpation Assessment Location Three Palpation Location lower abdominal wall B Palpation Findings Soft Tissue Tightness,Muscle Guarding Two Palpation Location iliopsoas Palpation Findings Soft Tissue Tightness Palpation Details left greater than right iliopsoas tightness One Palpation Location quadriceps Palpation Findings Soft Tissue Tightness PT-OP-K Range of Motion Start: 03/12/20 12:59 Freq: Status: Active Protocol: Document 03/12/20 15:23 [facility] (Rec: 03/13/20 15:25 [facility] [id number]) Hip Goniometric Range of Motion Hip Left Extension 8 Right Hip ROM WFL No Extension 5 Hip ROM Limitations Hip ROM Limitations Soft Tissue Tightness Comments limited hip ROM into hip extension right greater than left Prone knee flexion limited due to quad tightness PT-OP-L Special Tests Start: 03/12/20 12:59 Freq: Status: Active Protocol: Document 03/12/20 15:23 [facility] (Rec: 03/13/20 15:25 [facility] [id number]) Special Tests Hip Special Tests Mook Test Results positive Comments iliopsoas tightness B PT-OP-Q Treatments Start: 03/12/20 12:59 Freq: Status: Active Protocol: Document 07/18/20 15:00 [facility] (Rec: 07/18/20 15:09 [facility] [id number]) Manual Therapy Treatment Soft Tissue Mobilization quad and ITB release Body Location manual quad and ITB Release 2 Body Location adductor release bilaterally iliopsoas Body Location iliopsoas Comments release of both the iliacus and the psoas today in both sidelying and supine 1 Body Location MFR right lower abdominal wall Comments worked today over B lower abdominal wall, ILU massage, gentle MFR over B inguinal ligament region. Pt had good tolerance without c/o nerve pain Manual Techniques 1 Type manual quad and iliopsoas stretch Comments in prone and sidelying Self-Care/Home Management Treatment Education Patient Education Home Exercise Program Other Education HEP reviewed with Aryan and he is working on stretches for his low back and LE at home PT-OP-R Modalities Start: 03/14/20 17:48 Freq: Status: Active Protocol: Document 03/14/20 17:48 [facility] (Rec: 03/14/20 17:48 [facility] [email or web address]) Hot Pack/Cold Pack Treatment Cold Pack Location B anterior groin Patient Position Supine Patient Tolerance Good PT-OP-T Assessment and Plan Start: 03/12/20 12:59 Freq: Status: Active Protocol: Document 07/18/20 15:00 [facility] (Rec: 07/18/20 15:09 [facility] [id number]) Physical Therapy Assessment Goals Three Impairment Myofascial restrictions of the abdominal fascia right greater than left Snap Attacher Goal (LTG) Improved mobiilty of the fascial mobility of the anterior abdominal wall with stretches and manual therapy techniques GOOD PROGRESS AND GOOD TOLERANCE LTG Duration 8 weeks Two Impairment Decreased flexibility of the iliopsoas and quadriceps Short Term Goal (STG) Aryan is given a home stretching program for the anterior hips and abdominal wall and he feels independent with his program GOOD Progress and Aryan is working on his stretches at home STG Duration 6 weeks One Impairment Right greater than left inguinal pain rated 6/10 Mcfp Goal (LTG) Aryan notes a overall reduction of pain following PT with pain levels dropping to 1-2/10 GOOD PROGRESS and Aryan has been able to increase his walking distance to 3.5 miles LTG Duration 8 weeks Progress Towards Goals Progress Towards Goals Slow Progress - Other Progress Comments Aryan has been fitted for a new pair orthotics as well as spent a month on his boat. He returned to PT with newer onset of posterior leg pain and increase in adductor spasms. I have been working on decreasing nerve tension from the spine as well as the inguinal hernia region and ecouraging a home stretching program which aryan is faithful about doing regularly . Assessment Summary Assessment Aryan continues to have this newer onset of nerve pain, we talked today about stretches to open up the sides of his spine as well to help decrease any nerve compression. Physical Therapy Plan Frequency and Duration Frequency of Treatment 2x/Week Duration of Treatment 8 Plan of Care Start Date 07/18/20 Plan of Care End Date 09/12/20
--- NOTE | 2020-07-18 15:11 | PT.OPPOC ---
Physical, Occupational & Speech Therapy At [facility] Current Diagnoses Right lower quadrant pain (07/18/20) Left lower quadrant pain (07/18/20) Visit Care Team Role Provider Type Matthew Guzman MD Primary Care Provider Physician Specialty: Internal Medicine Address: [address] [place] [address], [address], [address] Email: [email or web address] Sara Carranza MD Attending Provider Physician Referring Provider Specialty: General Surgery Address: [address] [place] [address], [address] Email: [email or web address] Plan Of Care PT-OP-T Assessment and Plan Start: 03/12/20 12:59 Freq: Status: Active Protocol: Document 07/18/20 15:00 [facility] (Rec: 07/18/20 15:09 [facility] [id number]) Physical Therapy Assessment Goals Three Impairment Myofascial restrictions of the abdominal fascia right greater than left [facility] Goal (LTG) Improved mobility of the fascial mobility of the anterior abdominal wall with stretches and manual therapy techniques GOOD PROGRESS AND GOOD TOLERANCE LTG Duration 8 weeks Two Impairment Decreased flexibility of the iliopsoas and quadriceps Short Term Goal (STG) Antonio is given a home stretching program for the anterior hips and abdominal wall and he feels independent with his program GOOD Progress and Antonio is working on his stretches at home STG Duration 6 weeks One Impairment Right greater than left inguinal pain rated 6/10 [facility] Goal (LTG) Antonio notes a overall reduction of pain following PT with pain levels dropping to 1-2/10 GOOD PROGRESS and Antonio has been able to increase his walking distance to 3.5 miles LTG Duration 8 weeks Progress Towards Goals Progress Towards Goals Slow Progress - Other Progress Comments Antonio has been fitted for a new pair orthotics as well as spent a month on his boat. He returned to PT with newer onset of posterior leg pain and increase in adductor spasms. I have been working on decreasing nerve tension from the spine as well as the inguinal hernia region and encouraging a home stretching program which Antonio is faithful about doing regularly . Assessment Summary Assessment Antonio continues to have this newer onset of nerve pain, we talked today about stretches to open up the sides of his spine as well to help decrease any nerve compression. Physical Therapy Plan Frequency and Duration Frequency of Treatment 2x/Week Duration of Treatment 8 Plan of Care Start Date 07/18/20 Plan of Care End Date 09/12/20 Plan of Care Dates Plan of Care Start Date 07/18/20 Plan of Care End Date 09/12/20 Electronically Signed by: Sanam Carson, PT 07/18/20 1236 Please Sign and Return: I have reviewed this Plan of Care and certify that the skilled therapy services above are required to meet the patient?s needs. Physician Signature Date Printed Name and Credentials Clinical Instructor Signature Printed Name and Credentials
--- NOTE | 2020-07-23 17:50 | PT.OTN ---
Current Diagnoses Right lower quadrant pain (07/23/20) Left lower quadrant pain (07/23/20) Physical Therapy Treatment Note PT-OP-A Visit Information Start: 03/12/20 12:59 Freq: Status: Active Protocol: Document 07/23/20 17:47 [facility] (Rec: 07/23/20 17:50 [facility] [id number]) Out-Patient Physical Therapy Visit Information Visit Information Visit Type Treatment Note Visit Start Time 13:50 Visit Stop Time 14:30 Total Visit Minutes 40 Visit Number 16 PT-OP-B Current Condition Start: 03/12/20 12:59 Freq: Status: Active Protocol: Document 03/12/20 14:33 [facility] (Rec: 03/12/20 14:50 [facility] [id number]) Current Condition History of Current Condition Onset Date June 2019 History of Current Condition Hernia surgery in June and his pain levels increased. Pain is more on the right side and pain wraps down to the testicle on both sides but it is worse on the right side. He says it felt like a knife pain and at this point it is a little better. This lasted x 4 months and finally it started getting better. He has been told it is nerve pain from the femoral nerve. He wants to see if PT can help. He did have nerve pain prior to his surgery. The right side was more severe than the left. He reports prior to surgery he did have a physical bulge and it was a pretty big . He was experiencing nerve pain in the area of the right testicle. He does note he has some constipation and he had a bought of constipation prior to the hernia. [place] had [place] 2 months and noted some constipation during this time as well as straining No other abdominal surgeries. Takes muscle relaxants at night for fibromyalgia, takes mortrin 400 mg, Pepsid for GERD that he takes at night, Had been taking gabapenton and occasionally oxycodone, sometimes takes tynelol and motrin combined. He describes a constant regular burning pain but not the sharp jabbing pains any more. Pt has a history of fibromyaliga and GERD. He does meditation and stretching . Treatment Goals Patient/Caregiver Goals Antonio's goals include decreasing pain so that he can avoid further surgery Current Functional Impairments (Reported) Functional Limitations- ADL's pain limits ADL's including lifting and bending activities PT-OP-C Subjective Start: 03/13/20 15:08 Freq: Status: Active Protocol: Document 07/23/20 17:47 [facility] (Rec: 07/23/20 17:50 [facility] [id number]) OP-PT Subjective Patient Comments Patient Comments Pt reports he is still having discomfort but it is a little better. PT-OP-F Manual Assessment Start: 03/12/20 12:59 Freq: Status: Active Protocol: Document 03/12/20 15:23 [facility] (Rec: 03/13/20 15:25 [facility] [id number]) Manual Assessments Soft Tissue Assessment Soft Tissue Mobility Assessment restrictions in the fascia of the abdominal wall, tightness right greater than left in the fascia over the inguinal hernia regair, limited flexibility of the iliopsoas and quadricpes PT-OP-J Posture/Palpation/Skin Start: 03/12/20 12:59 Freq: Status: Active Protocol: Document 03/13/20 15:06 [facility] (Rec: 03/13/20 15:08 [facility] [id number]) Palpation Assessment Location Three Palpation Location lower abdominal wall B Palpation Findings Soft Tissue Tightness,Muscle Guarding Two Palpation Location iliopsoas Palpation Findings Soft Tissue Tightness Palpation Details left greater than right iliopsoas tightness One Palpation Location quadriceps Palpation Findings Soft Tissue Tightness PT-OP-K Range of Motion Start: 03/12/20 12:59 Freq: Status: Active Protocol: Document 03/12/20 15:23 [facility] (Rec: 03/13/20 15:25 [facility] [id number]) Hip Goniometric Range of Motion Hip Left Extension 8 Right Hip ROM WFL No Extension 5 Hip ROM Limitations Hip ROM Limitations Soft Tissue Tightness Comments limited hip ROM into hip extension right greater than left Prone knee flexion limited due to quad tightness PT-OP-L Special Tests Start: 03/12/20 12:59 Freq: Status: Active Protocol: Document 03/12/20 15:23 [facility] (Rec: 03/13/20 15:25 [facility] [id number]) Special Tests Hip Special Tests Mook Test Results positive Comments iliopsoas tightness B PT-OP-Q Treatments Start: 03/12/20 12:59 Freq: Status: Active Protocol: Document 07/23/20 17:47 [facility] (Rec: 07/23/20 17:50 [facility] [id number]) Manual Therapy Treatment Soft Tissue Mobilization quad and ITB release Body Location manual quad and ITB Release 2 Body Location adductor release bilaterally iliopsoas Body Location iliopsoas Comments release of both the iliacus and the psoas today in both sidelying and supine 1 Body Location MFR right lower abdominal wall Comments worked today over B lower abdominal wall, ILU massage, gentle MFR over B inguinal ligament region. Pt had good tolerance without c/o nerve pain Manual Techniques 1 Type manual quad and iliopsoas stretch Comments in prone and sidelying PT-OP-R Modalities Start: 03/14/20 17:48 Freq: Status: Active Protocol: Document 03/14/20 17:48 [facility] (Rec: 03/14/20 17:48 [facility] [id number]) Hot Pack/Cold Pack Treatment Cold Pack Location B anterior groin Patient Position Supine Patient Tolerance Good PT-OP-T Assessment and Plan Start: 03/12/20 12:59 Freq: Status: Active Protocol: Document 07/23/20 17:47 [facility] (Rec: 07/23/20 17:50 [facility] [id number]) Physical Therapy Assessment Assessment Summary Assessment Antonio tends to cramp up very easily with stretches. No increase in nerve pain symptoms with today's treatment Physical Therapy Plan Frequency and Duration Frequency of Treatment 2x/Week Duration of Treatment 8 Plan of Care Start Date 07/18/20 Plan of Care End Date 09/12/20 Next Visit Focus/Plan Next Note Type Treatment Note Next Visit Plan begin working on abdominal stabilization exercises on hands and knees
--- NOTE | 2020-09-10 17:09 | PT.OTN ---
Current Diagnoses Right lower quadrant pain (09/10/20) Left lower quadrant pain (09/10/20) Physical Therapy Treatment Note PT-OP-A Visit Information Start: 03/12/20 12:59 Freq: Status: Active Protocol: Document 09/10/20 14:01 [facility] (Rec: 09/10/20 14:01 [facility] [id number]) Out-Patient Physical Therapy Visit Information Visit Information Visit Type Treatment Note Visit Start Time 13:55 Visit Stop Time 14:40 Total Visit Minutes 45 Visit Number 17 PT-OP-B Current Condition Start: 03/12/20 12:59 Freq: Status: Active Protocol: Document 03/12/20 14:33 [facility] (Rec: 03/12/20 14:50 [facility] [id number]) Current Condition History of Current Condition Onset Date June 2019 History of Current Condition Hernia surgery in June and his pain levels increased. Pain is more on the right side and pain wraps down to the testicle on both sides but it is worse on the right side. He says it felt like a knife pain and at this point it is a little better. This lasted x 4 months and finally it started getting better. He has been told it is nerve pain from the femoral nerve. He wants to see if PT can help. He did have nerve pain prior to his surgery. The right side was more severe than the left. He reports prior to surgery he did have a physical bulge and it was a pretty big . He was experiencing nerve pain in the area of the right testicle. He does note he has some constipation and he had a bought of constipation prior to the hernia. He had been [place] for 2 months and noted some constipation during this time as well as straining No other abdominal surgeries. Takes muscle relaxants at night for fibromyalgia, takes mortrin 400 mg, Pepsid for GERD that he takes at night, Had been taking gabapenton and occasionally oxycodone, sometimes takes tynelol and motrin combined. He describes a constant regular burning pain but not the sharp jabbing pains any more. Pt has a history of fibromyaliga and GERD. He does meditation and stretching . Treatment Goals Patient/Caregiver Goals Antonio's goals include decreasing pain so that he can avoid further surgery Current Functional Impairments (Reported) Functional Limitations- ADL's pain limits ADL's including lifting and bending activities PT-OP-C Subjective Start: 03/13/20 15:08 Freq: Status: Active Protocol: Document 09/10/20 13:59 [facility] (Rec: 09/10/20 14:00 [facility] [id number]) OP-PT Subjective Patient Comments Patient Comments He notes he is having persisent pain in the anterior hips and legs, he has been working on his breathing and rolfing as well. He feels like he may see his MD again. Patient Reported Progress Same PT-OP-F Manual Assessment Start: 03/12/20 12:59 Freq: Status: Active Protocol: Document 03/12/20 15:23 [facility] (Rec: 03/13/20 15:25 [facility] [id number]) Manual Assessments Soft Tissue Assessment Soft Tissue Mobility Assessment restrictions in the fascia of the abdominal wall, tightness right greater than left in the fascia over the inguinal hernia regair, limited flexibility of the iliopsoas and quadricpes PT-OP-J Posture/Palpation/Skin Start: 03/12/20 12:59 Freq: Status: Active Protocol: Document 03/13/20 15:06 [facility] (Rec: 03/13/20 15:08 [facility] [id number]) Palpation Assessment Location Three Palpation Location lower abdominal wall B Palpation Findings Soft Tissue Tightness,Muscle Guarding Two Palpation Location iliopsoas Palpation Findings Soft Tissue Tightness Palpation Details left greater than right iliopsoas tightness One Palpation Location quadriceps Palpation Findings Soft Tissue Tightness PT-OP-K Range of Motion Start: 03/12/20 12:59 Freq: Status: Active Protocol: Document 03/12/20 15:23 [facility] (Rec: 03/13/20 15:25 [facility] [id number]) Hip Goniometric Range of Motion Hip Left Extension 8 Right Hip ROM WFL No Extension 5 Hip ROM Limitations Hip ROM Limitations Soft Tissue Tightness Comments limited hip ROM into hip extension right greater than left Prone knee flexion limited due to quad tightness PT-OP-L Special Tests Start: 03/12/20 12:59 Freq: Status: Active Protocol: Document 03/12/20 15:23 [facility] (Rec: 03/13/20 15:25 [facility] [id number]) Special Tests Hip Special Tests Mook Test Results positive Comments iliopsoas tightness B PT-OP-Q Treatments Start: 03/12/20 12:59 Freq: Status: Active Protocol: Document 09/10/20 17:04 [facility] (Rec: 09/10/20 17:09 [facility] [id number]) Manual Therapy Treatment Soft Tissue Mobilization quad and ITB release Body Location manual quad and ITB Release 2 Body Location adductor release bilaterally iliopsoas Body Location iliopsoas Comments release of both the iliacus and the psoas today in both sidelying and supine 1 Body Location MFR right lower abdominal wall Comments worked today over B lower abdominal wall, ILU massage, gentle MFR over B inguinal ligament region. Pt had good tolerance without c/o nerve pain PT-OP-R Modalities Start: 03/14/20 17:48 Freq: Status: Active Protocol: Document 03/14/20 17:48 [facility] (Rec: 03/14/20 17:48 [facility] [id number]) Hot Pack/Cold Pack Treatment Cold Pack Location B anterior groin Patient Position Supine Patient Tolerance Good PT-OP-T Assessment and Plan Start: 03/12/20 12:59 Freq: Status: Active Protocol: Document 09/10/20 17:04 [facility] (Rec: 09/10/20 17:09 [facility] [id number]) Physical Therapy Assessment Assessment Summary Assessment pt educated on the egoscue method of one hip in 90/90 and the other one straight again to slowly stretch the hip flexors. We worked in this position today for MFR and it felt good to Antonio to be int his position. I suggested 5- 10 minutes to start with at home and work up to 20 min Physical Therapy Plan Frequency and Duration Frequency of Treatment 2x/Week Duration of Treatment 8 Plan of Care Start Date 07/18/20 Plan of Care End Date 09/12/20 Therapeutic Interventions Therapeutic Interventions Home Exercise Program,Manual Therapy,Patient/Caregiver Education,Self-Care/Home Management,Soft Tissue Mobilization,Therapeutic Exercises Modalities Cold Pack/Ice Massage Other Therapeutic Interventions Femoral nerve glides
--- NOTE | 2020-09-17 17:59 | PT.OTN ---
Current Diagnoses Right lower quadrant pain (09/17/20) Left lower quadrant pain (09/17/20) Physical Therapy Treatment Note PT-OP-A Visit Information Start: 03/12/20 12:59 Freq: Status: Active Protocol: Document 09/17/20 17:50 [facility] (Rec: 09/17/20 17:59 [facility] [id number]) Out-Patient Physical Therapy Visit Information Visit Information Visit Type Progress Note Visit Start Time 13:45 Visit Stop Time 14:30 Total Visit Minutes 45 Visit Number 18 PT-OP-B Current Condition Start: 03/12/20 12:59 Freq: Status: Active Protocol: Document 03/12/20 14:33 [facility] (Rec: 03/12/20 14:50 [facility] [id number]) Current Condition History of Current Condition Onset Date June 2019 History of Current Condition Hernia surgery in June and his pain levels increased. Pain is more on the right side and pain wraps down to the testicle on both sides but it is worse on the right side. He says it felt like a knife pain and at this point it is a little better. This lasted x 4 months and finally it started getting better. He has been told it is nerve pain from the femoral nerve. He wants to see if PT can help. He did have nerve pain prior to his surgery. The right side was more severe than the left. He reports prior to surgery he did have a physical bulge and it was a pretty big . He was experiencing nerve pain in the area of the right testicle. He does note he has some constipation and he had a bought of constipation prior to the hernia. [place] had been [place] for 2 months and noted some constipation during this time as well as straining No other abdominal surgeries. Takes muscle relaxants at night for fibromyalgia, takes mortrin 400 mg, Pepsid for GERD that he takes at night, Had been taking gabapenton and occasionally oxycodone, sometimes takes tynelol and motrin combined. He describes a constant regular burning pain but not the sharp jabbing pains any more. Pt has a history of fibromyaliga and GERD. He does meditation and stretching . Treatment Goals Patient/Caregiver Goals Antonio's goals include decreasing pain so that he can avoid further surgery Current Functional Impairments (Reported) Functional Limitations- ADL's pain limits ADL's including lifting and bending activities PT-OP-C Subjective Start: 03/13/20 15:08 Freq: Status: Active Protocol: Document 09/17/20 17:50 [facility] (Rec: 09/17/20 17:59 [facility] [email or web address]) OP-PT Subjective Patient Comments Patient Comments Antonio feels PT helps him. He is still feeling tight in the anterior legs but feels better following treatment PT-OP-F Manual Assessment Start: 03/12/20 12:59 Freq: Status: Active Protocol: Document 03/12/20 15:23 [facility] (Rec: 03/13/20 15:25 [facility] [id number]) Manual Assessments Soft Tissue Assessment Soft Tissue Mobility Assessment restrictions in the fascia of the abdominal wall, tightness right greater than left in the fascia over the inguinal hernia regair, limited flexibility of the iliopsoas and quadricpes PT-OP-J Posture/Palpation/Skin Start: 03/12/20 12:59 Freq: Status: Active Protocol: Document 03/13/20 15:06 [facility] (Rec: 03/13/20 15:08 [facility] [id number]) Palpation Assessment Location Three Palpation Location lower abdominal wall B Palpation Findings Soft Tissue Tightness,Muscle Guarding Two Palpation Location iliopsoas Palpation Findings Soft Tissue Tightness Palpation Details left greater than right iliopsoas tightness One Palpation Location quadriceps Palpation Findings Soft Tissue Tightness PT-OP-K Range of Motion Start: 03/12/20 12:59 Freq: Status: Active Protocol: Document 03/12/20 15:23 [facility] (Rec: 03/13/20 15:25 [facility] [id number]) Hip Goniometric Range of Motion Hip Left Extension 8 Right Hip ROM WFL No Extension 5 Hip ROM Limitations Hip ROM Limitations Soft Tissue Tightness Comments limited hip ROM into hip extension right greater than left Prone knee flexion limited due to quad tightness PT-OP-L Special Tests Start: 03/12/20 12:59 Freq: Status: Active Protocol: Document 03/12/20 15:23 [facility] (Rec: 03/13/20 15:25 [facility] [id number]) Special Tests Hip Special Tests Mook Test Results positive Comments iliopsoas tightness B PT-OP-Q Treatments Start: 03/12/20 12:59 Freq: Status: Active Protocol: Document 09/17/20 17:50 [facility] (Rec: 09/17/20 17:59 [facility] [email or web address]) Manual Therapy Treatment Soft Tissue Mobilization quad and ITB release Body Location manual quad and ITB Release iliopsoas Body Location iliopsoas Comments release of both the iliacus and the psoas today in supine 1 Body Location bilateral iliacus Mobilization Type Myofascial Release Body Position Supine PT-OP-R Modalities Start: 03/14/20 17:48 Freq: Status: Active Protocol: Document 03/14/20 17:48 [facility] (Rec: 03/14/20 17:48 [facility] [id number]) Hot Pack/Cold Pack Treatment Cold Pack Location B anterior groin Patient Position Supine Patient Tolerance Good PT-OP-T Assessment and Plan Start: 03/12/20 12:59 Freq: Status: Active Protocol: Document 09/17/20 17:50 [facility] (Rec: 09/17/20 17:59 [facility] [id number]) Physical Therapy Assessment Goals Three Impairment Myofascial restrictions of the abdominal fascia right greater than left Senior Care Goal (LTG) Improved mobiilty of the fascial mobility of the anterior abdominal wall with stretches and manual therapy techniques GOOD PROGRESS AND GOOD TOLERANCE LTG Duration 8 weeks Two Impairment Decreased flexibility of the iliopsoas and quadriceps Short Term Goal (STG) Antonio is given a home stretching program for the anterior hips and abdominal wall and he feels independent with his program GOal MET STG Duration 6 weeks One Impairment Right greater than left inguinal pain rated 6/10 Driller'S Offsider Goal (LTG) Antonio notes a overall reduction of pain following PT with pain levels dropping to 1-2/10 GOOD PROGRESS and Antonio has been able to increase his walking distance to 3.5 miles but had a flare again and has to cut this back. LTG Duration 8 weeks Assessment Summary Assessment pt feels the egosque method has helped some. He will continue to work on the iliopsoas release at home. He has two visits left in PT and would like to continue. There is still tightness B in the inguinal region. He has a history of fibromyalgia and I am wondering if this has been flared and contributing to his symptoms. Physical Therapy Plan Frequency and Duration Frequency of Treatment 2x/Week Duration of Treatment 8 Plan of Care Start Date 09/17/20 Plan of Care End Date 11/19/20 Therapeutic Interventions Therapeutic Interventions Home Exercise Program,Manual Therapy,Patient/Caregiver Education,Self-Care/Home Management,Soft Tissue Mobilization,Therapeutic Exercises Modalities Cold Pack/Ice Massage Other Therapeutic Interventions Femoral nerve glides Next Visit Focus/Plan Next Note Type Treatment Note Next Visit Plan begin working on abdominal stabilization exercises on hands and knees, MFR and iliopsoas release
--- NOTE | 2020-09-17 17:59 | PT.OPPOC ---
Physical, Occupational & Speech Therapy At [facility] Current Diagnoses Right lower quadrant pain (09/17/20) Left lower quadrant pain (09/17/20) Visit Care Team Role Provider Type Matthew Guzman MD Primary Care Provider Physician Specialty: Internal Medicine Address: [address] [place] [address], [address], [place], [address] Email: [email or web address] Sara Carranza MD Attending Provider Physician Referring Provider Specialty: General Surgery Address: [address] [place] [address], [address] Email: [email or web address] Plan Of Care PT-OP-T Assessment and Plan Start: 03/12/20 12:59 Freq: Status: Active Protocol: Document 09/17/20 17:50 [facility] (Rec: 09/17/20 17:59 [facility] [email or web address]) Physical Therapy Assessment Goals Three Impairment Myofascial restrictions of the abdominal fascia right greater than left Mcc Goal (LTG) Improved mobility of the fascial mobility of the anterior abdominal wall with stretches and manual therapy techniques GOOD PROGRESS AND GOOD TOLERANCE LTG Duration 8 weeks Two Impairment Decreased flexibility of the iliopsoas and quadriceps Short Term Goal (STG) Antonio is given a home stretching program for the anterior hips and abdominal wall and he feels independent with his program GOal MET STG Duration 6 weeks One Impairment Right greater than left inguinal pain rated 6/10 Water Purifier Goal (LTG) Antonio notes a overall reduction of pain following PT with pain levels dropping to 1-2/10 GOOD PROGRESS and Antonio has been able to increase his walking distance to 3.5 miles but had a flare again and has to cut this back. LTG Duration 8 weeks Assessment Summary Assessment pt feels the egosque method has helped some. He will continue to work on the iliopsoas release at home. He has two visits left in PT and would like to continue. There is still tightness B in the inguinal region. He has a history of fibromyalgia and I am wondering if this has been flared and contributing to his symptoms. Physical Therapy Plan Frequency and Duration Frequency of Treatment 2x/Week Duration of Treatment 8 Plan of Care Start Date 09/17/20 Plan of Care End Date 11/19/20 Therapeutic Interventions Therapeutic Interventions Home Exercise Program,Manual Therapy,Patient/Caregiver Education,Self-Care/Home Management,Soft Tissue Mobilization,Therapeutic Exercises Modalities Cold Pack/Ice Massage Other Therapeutic Interventions Femoral nerve glides Next Visit Focus/Plan Next Note Type Treatment Note Next Visit Plan begin working on abdominal stabilization exercises on hands and knees, MFR and iliopsoas release Plan of Care Dates Plan of Care Start Date 09/17/20 Plan of Care End Date 11/19/20 Electronically Signed by: Sanam Carson, PT 09/17/20 [id number] Please Sign and Return: I have reviewed this Plan of Care and certify that the skilled therapy services above are required to meet the patient?s needs. Physician Signature Date Printed Name and Credentials Clinical Instructor Signature Printed Name and Credentials
--- NOTE | 2020-09-19 18:14 | PT.OTN ---
Current Diagnoses Right lower quadrant pain (09/19/20) Left lower quadrant pain (09/19/20) Physical Therapy Treatment Note PT-OP-A Visit Information Start: 03/12/20 12:59 Freq: Status: Active Protocol: Document 09/19/20 18:08 [facility] (Rec: 09/19/20 18:14 [facility] [id number]) Out-Patient Physical Therapy Visit Information Visit Information Visit Type Treatment Note Visit Start Time 13:50 Visit Stop Time 14:35 Total Visit Minutes 45 Visit Number 19 PT-OP-B Current Condition Start: 03/12/20 12:59 Freq: Status: Active Protocol: Document 03/12/20 14:33 [facility] (Rec: 03/12/20 14:50 [facility] [id number]) Current Condition History of Current Condition Onset Date June 2019 History of Current Condition Hernia surgery in June and his pain levels increased. Pain is more on the right side and pain wraps down to the testicle on both sides but it is worse on the right side. He says it felt like a knife pain and at this point it is a little better. This lasted x 4 months and finally it started getting better. He has been told it is nerve pain from the femoral nerve. He wants to see if PT can help. He did have nerve pain prior to his surgery. The right side was more severe than the left. He reports prior to surgery he did have a physical bulge and it was a pretty big . He was experiencing nerve pain in the area of the right testicle. He does note he has some constipation and he had a bought of constipation prior to the hernia. [place] had [place] for 2 months and noted some constipation during this time as well as straining No other abdominal surgeries. Takes muscle relaxants at night for fibromyalgia, takes mortrin 400 mg, Pepsid for GERD that he takes at night, Had been taking gabapenton and occasionally oxycodone, sometimes takes tynelol and motrin combined. He describes a constant regular burning pain but not the sharp jabbing pains any more. Pt has a history of fibromyaliga and GERD. He does meditation and stretching . Treatment Goals Patient/Caregiver Goals Antonio's goals include decreasing pain so that he can avoid further surgery Current Functional Impairments (Reported) Functional Limitations- ADL's pain limits ADL's including lifting and bending activities PT-OP-C Subjective Start: 03/13/20 15:08 Freq: Status: Active Protocol: Document 09/19/20 18:08 [facility] (Rec: 09/19/20 18:14 [facility] [id number]) OP-PT Subjective Patient Comments Patient Comments PT has really been working on his stretches for home PT-OP-F Manual Assessment Start: 03/12/20 12:59 Freq: Status: Active Protocol: Document 03/12/20 15:23 [facility] (Rec: 03/13/20 15:25 [facility] [id number]) Manual Assessments Soft Tissue Assessment Soft Tissue Mobility Assessment restrictions in the fascia of the abdominal wall, tightness right greater than left in the fascia over the inguinal hernia regair, limited flexibility of the iliopsoas and quadricpes PT-OP-J Posture/Palpation/Skin Start: 03/12/20 12:59 Freq: Status: Active Protocol: Document 03/13/20 15:06 [facility] (Rec: 03/13/20 15:08 [facility] [id number]) Palpation Assessment Location Three Palpation Location lower abdominal wall B Palpation Findings Soft Tissue Tightness,Muscle Guarding Two Palpation Location iliopsoas Palpation Findings Soft Tissue Tightness Palpation Details left greater than right iliopsoas tightness One Palpation Location quadriceps Palpation Findings Soft Tissue Tightness PT-OP-K Range of Motion Start: 03/12/20 12:59 Freq: Status: Active Protocol: Document 03/12/20 15:23 [facility] (Rec: 03/13/20 15:25 [facility] [id number]) Hip Goniometric Range of Motion Hip Left Extension 8 Right Hip ROM WFL No Extension 5 Hip ROM Limitations Hip ROM Limitations Soft Tissue Tightness Comments limited hip ROM into hip extension right greater than left Prone knee flexion limited due to quad tightness PT-OP-L Special Tests Start: 03/12/20 12:59 Freq: Status: Active Protocol: Document 03/12/20 15:23 [facility] (Rec: 03/13/20 15:25 [facility] [id number]) Special Tests Hip Special Tests Mook Test Results positive Comments iliopsoas tightness B PT-OP-Q Treatments Start: 03/12/20 12:59 Freq: Status: Active Protocol: Document 09/19/20 18:08 [facility] (Rec: 09/19/20 18:14 [facility] [id number]) Manual Therapy Treatment Soft Tissue Mobilization quad and ITB release Body Location manual quad and ITB Release iliopsoas Body Location iliopsoas Comments release of both the iliacus and the psoas today in supine 1 Body Location bilateral iliacus Mobilization Type Myofascial Release Body Position Supine PT-OP-R Modalities Start: 03/14/20 17:48 Freq: Status: Active Protocol: Document 03/14/20 17:48 [facility] (Rec: 03/14/20 17:48 [facility] [id number]) Hot Pack/Cold Pack Treatment Cold Pack Location B anterior groin Patient Position Supine Patient Tolerance Good PT-OP-T Assessment and Plan Start: 03/12/20 12:59 Freq: Status: Active Protocol: Document 09/19/20 18:08 [facility] (Rec: 09/19/20 18:14 [facility] [id number]) Physical Therapy Assessment Assessment Summary Assessment talked to Vic today about dry needling. Referred him to Dr Ambar Stover to see if this may help the iliopsoas tightness Physical Therapy Plan Frequency and Duration Frequency of Treatment 2x/Week Duration of Treatment 8 Plan of Care Start Date 09/17/20 Plan of Care End Date 11/19/20
--- NOTE | 2020-09-24 13:13 | PT.OTN ---
Current Diagnoses Right lower quadrant pain (09/24/20) Left lower quadrant pain (09/24/20) Physical Therapy Treatment Note PT-OP-A Visit Information Start: 03/12/20 12:59 Freq: Status: Active Protocol: Document 09/24/20 13:02 [facility] (Rec: 09/24/20 13:13 [facility] [id number]) Out-Patient Physical Therapy Visit Information Visit Information Visit Type Treatment Note Visit Start Time 09:00 Visit Stop Time 09:45 Total Visit Minutes 45 Visit Number 20 PT-OP-B Current Condition Start: 03/12/20 12:59 Freq: Status: Active Protocol: Document 03/12/20 14:33 [facility] (Rec: 03/12/20 14:50 [facility] [id number]) Current Condition History of Current Condition Onset Date June 2019 History of Current Condition Hernia surgery in June and his pain levels increased. Pain is more on the right side and pain wraps down to the testicle on both sides but it is worse on the right side. He says it felt like a knife pain and at this point it is a little better. This lasted x 4 months and finally it started getting better. He has been told it is nerve pain from the femoral nerve. He wants to see if PT can help. He did have nerve pain prior to his surgery. The right side was more severe than the left. He reports prior to surgery he did have a physical bulge and it was a pretty big . He was experiencing nerve pain in the area of the right testicle. He does note he has some constipation and he had a bought of constipation prior to the hernia. [place] had [place] 2 months and noted some constipation during this time as well as straining No other abdominal surgeries. Takes muscle relaxants at night for fibromyalgia, takes mortrin 400 mg, Pepsid for GERD that he takes at night, Had been taking gabapenton and occasionally oxycodone, sometimes takes tynelol and motrin combined. He describes a constant regular burning pain but not the sharp jabbing pains any more. Pt has a history of fibromyaliga and GERD. He does meditation and stretching . Treatment Goals Patient/Caregiver Goals Antonio's goals include decreasing pain so that he can avoid further surgery Current Functional Impairments (Reported) Functional Limitations- ADL's pain limits ADL's including lifting and bending activities PT-OP-C Subjective Start: 03/13/20 15:08 Freq: Status: Active Protocol: Document 09/24/20 13:02 [facility] (Rec: 09/24/20 13:13 [facility] [id number]) OP-PT Subjective Patient Comments Patient Comments Antonio reports he has a visit scheduled now with Dr. Stover for next week. He is experiencing a great deal of tightness in the anterior hips and he points to the ASIS as being very tender. He notes he is stretching but it isn't making a big difference. PT-OP-F Manual Assessment Start: 03/12/20 12:59 Freq: Status: Active Protocol: Document 03/12/20 15:23 [facility] (Rec: 03/13/20 15:25 [facility] [id number]) Manual Assessments Soft Tissue Assessment Soft Tissue Mobility Assessment restrictions in the fascia of the abdominal wall, tightness right greater than left in the fascia over the inguinal hernia regair, limited flexibility of the iliopsoas and quadricpes PT-OP-J Posture/Palpation/Skin Start: 03/12/20 12:59 Freq: Status: Active Protocol: Document 03/13/20 15:06 [facility] (Rec: 03/13/20 15:08 [facility] [id number]) Palpation Assessment Location Three Palpation Location lower abdominal wall B Palpation Findings Soft Tissue Tightness,Muscle Guarding Two Palpation Location iliopsoas Palpation Findings Soft Tissue Tightness Palpation Details left greater than right iliopsoas tightness One Palpation Location quadriceps Palpation Findings Soft Tissue Tightness PT-OP-K Range of Motion Start: 03/12/20 12:59 Freq: Status: Active Protocol: Document 03/12/20 15:23 [facility] (Rec: 03/13/20 15:25 [facility] [id number]) Hip Goniometric Range of Motion Hip Left Extension 8 Right Hip ROM WFL No Extension 5 Hip ROM Limitations Hip ROM Limitations Soft Tissue Tightness Comments limited hip ROM into hip extension right greater than left Prone knee flexion limited due to quad tightness PT-OP-L Special Tests Start: 03/12/20 12:59 Freq: Status: Active Protocol: Document 03/12/20 15:23 [facility] (Rec: 03/13/20 15:25 [facility] [id number]) Special Tests Hip Special Tests Mook Test Results positive Comments iliopsoas tightness B PT-OP-Q Treatments Start: 03/12/20 12:59 Freq: Status: Active Protocol: Document 09/24/20 13:02 [facility] (Rec: 09/24/20 13:13 [facility] [id number]) Manual Therapy Treatment Soft Tissue Mobilization quad and ITB release Body Location manual quad and ITB Release 2 Body Location adductor release bilaterally Comments right adductor was very tight today so I added in lateral glides MWM with the belt iliopsoas Body Location iliopsoas Comments release of both the iliacus and the psoas today in supine 1 Body Location bilateral iliacus Mobilization Type Myofascial Release Body Position Supine Manual Techniques MWM hip lateral capsule stretch Type MWM Body Location B hips Body Position Supine Comments MWM mulligan mobilization to open up the anterior hip and provide lateral distraction of the hip. pt had good tolerance to this 1 Type manual quad and iliopsoas stretch Comments in prone and sidelying PT-OP-R Modalities Start: 03/14/20 17:48 Freq: Status: Active Protocol: Document 03/14/20 17:48 [facility] (Rec: 03/14/20 17:48 [facility] [id number]) Hot Pack/Cold Pack Treatment Cold Pack Location B anterior groin Patient Position Supine Patient Tolerance Good PT-OP-T Assessment and Plan Start: 03/12/20 12:59 Freq: Status: Active Protocol: Document 09/24/20 13:02 [facility] (Rec: 09/24/20 13:13 [facility] [email or web address]) Physical Therapy Assessment Assessment Summary Assessment Vic has a appointment with Dr Ambar Stover next week for dry needling. He is tight right adductor nav at both attachments, quads, iliacus and psoas, left ITB tighter than R Physical Therapy Plan Frequency and Duration Frequency of Treatment 2x/Week Duration of Treatment 8 Plan of Care Start Date 09/17/20 Plan of Care End Date 11/19/20 Therapeutic Interventions Therapeutic Interventions Home Exercise Program,Manual Therapy,Patient/Caregiver Education,Self-Care/Home Management,Soft Tissue Mobilization,Therapeutic Exercises Modalities Cold Pack/Ice Massage Other Therapeutic Interventions Femoral nerve glides
--- NOTE | 2020-10-15 15:56 | PT.OTN ---
Current Diagnoses Right lower quadrant pain (10/15/20) Left lower quadrant pain (10/15/20) Physical Therapy Treatment Note PT-OP-A Visit Information Start: 03/12/20 12:59 Freq: Status: Active Protocol: Document 10/15/20 12:59 [facility] (Rec: 10/15/20 13:03 [facility] [id number]) Out-Patient Physical Therapy Visit Information Visit Information Visit Type Treatment Note Visit Start Time 13:00 Visit Stop Time 13:45 Total Visit Minutes 45 Visit Number 22 PT-OP-B Current Condition Start: 03/12/20 12:59 Freq: Status: Active Protocol: Document 03/12/20 14:33 [facility] (Rec: 03/12/20 14:50 [facility] [id number]) Current Condition History of Current Condition Onset Date June 2019 History of Current Condition Hernia surgery in June and his pain levels increased. Pain is more on the right side and pain wraps down to the testicle on both sides but it is worse on the right side. He says it felt like a knife pain and at this point it is a little better. This lasted x 4 months and finally it started getting better. He has been told it is nerve pain from the femoral nerve. He wants to see if PT can help. He did have nerve pain prior to his surgery. The right side was more severe than the left. He reports prior to surgery he did have a physical bulge and it was a pretty big . He was experiencing nerve pain in the area of the right testicle. He does note he has some constipation and he had a bought of constipation prior to the hernia. [place] 2 [place] and noted some constipation during this time as well as straining No other abdominal surgeries. Takes muscle relaxants at night for fibromyalgia, takes mortrin 400 mg, Pepsid for GERD that he takes at night, Had been taking gabapenton and occasionally oxycodone, sometimes takes tynelol and motrin combined. He describes a constant regular burning pain but not the sharp jabbing pains any more. Pt has a history of fibromyaliga and GERD. He does meditation and stretching . Treatment Goals Patient/Caregiver Goals Antonio's goals include decreasing pain so that he can avoid further surgery Current Functional Impairments (Reported) Functional Limitations- ADL's pain limits ADL's including lifting and bending activities PT-OP-C Subjective Start: 03/13/20 15:08 Freq: Status: Active Protocol: Document 10/15/20 12:59 [facility] (Rec: 10/15/20 13:03 [facility] [id number]) OP-PT Subjective Patient Comments Patient Comments Saw Dr Stover again and had dry needling into the anterior legs. He also worked on the lymph nodes from the upper body down to the lower legs. PT-OP-F Manual Assessment Start: 03/12/20 12:59 Freq: Status: Active Protocol: Document 03/12/20 15:23 [facility] (Rec: 03/13/20 15:25 [facility] [id number]) Manual Assessments Soft Tissue Assessment Soft Tissue Mobility Assessment restrictions in the fascia of the abdominal wall, tightness right greater than left in the fascia over the inguinal hernia regair, limited flexibility of the iliopsoas and quadricpes PT-OP-J Posture/Palpation/Skin Start: 03/12/20 12:59 Freq: Status: Active Protocol: Document 03/13/20 15:06 [facility] (Rec: 03/13/20 15:08 [facility] [id number]) Palpation Assessment Location Three Palpation Location lower abdominal wall B Palpation Findings Soft Tissue Tightness,Muscle Guarding Two Palpation Location iliopsoas Palpation Findings Soft Tissue Tightness Palpation Details left greater than right iliopsoas tightness One Palpation Location quadriceps Palpation Findings Soft Tissue Tightness PT-OP-K Range of Motion Start: 03/12/20 12:59 Freq: Status: Active Protocol: Document 03/12/20 15:23 [facility] (Rec: 03/13/20 15:25 [facility] [id number]) Hip Goniometric Range of Motion Hip Left Extension 8 Right Hip ROM WFL No Extension 5 Hip ROM Limitations Hip ROM Limitations Soft Tissue Tightness Comments limited hip ROM into hip extension right greater than left Prone knee flexion limited due to quad tightness PT-OP-L Special Tests Start: 03/12/20 12:59 Freq: Status: Active Protocol: Document 03/12/20 15:23 [facility] (Rec: 03/13/20 15:25 [facility] [id number]) Special Tests Hip Special Tests Mook Test Results positive Comments iliopsoas tightness B PT-OP-Q Treatments Start: 03/12/20 12:59 Freq: Status: Active Protocol: Document 10/15/20 15:54 [facility] (Rec: 10/15/20 15:56 [facility] [id number]) Manual Therapy Treatment Soft Tissue Mobilization abdominal muscle fascial release Body Location abdominal muscle fascial release quad and ITB release Body Location manual quad and ITB Release iliopsoas Body Location iliopsoas Comments release of both the iliacus and the psoas today in supine PT-OP-R Modalities Start: 03/14/20 17:48 Freq: Status: Active Protocol: Document 03/14/20 17:48 [facility] (Rec: 03/14/20 17:48 [facility] [id number]) Hot Pack/Cold Pack Treatment Cold Pack Location B anterior groin Patient Position Supine Patient Tolerance Good PT-OP-T Assessment and Plan Start: 03/12/20 12:59 Freq: Status: Active Protocol: Document 10/15/20 15:54 [facility] (Rec: 10/15/20 15:56 [facility] [id number]) Physical Therapy Assessment Assessment Summary Assessment right LE much less tight today , pt to continue with dry needling as well as PT as it seems to be making a difference for him Physical Therapy Plan Frequency and Duration Frequency of Treatment 2x/Week Duration of Treatment 8 Plan of Care Start Date 09/17/20 Plan of Care End Date 11/19/20 Therapeutic Interventions Therapeutic Interventions Home Exercise Program,Manual Therapy,Patient/Caregiver Education,Self-Care/Home Management,Soft Tissue Mobilization,Therapeutic Exercises Modalities Cold Pack/Ice Massage Other Therapeutic Interventions Femoral nerve glides
--- NOTE | 2020-10-17 18:11 | PT.OTN ---
Current Diagnoses Right lower quadrant pain (10/17/20) Left lower quadrant pain (10/17/20) Physical Therapy Treatment Note PT-OP-A Visit Information Start: 03/12/20 12:59 Freq: Status: Active Protocol: Document 10/17/20 13:00 [facility] (Rec: 10/17/20 13:03 [facility] [id number]) Out-Patient Physical Therapy Visit Information Visit Information Visit Type Treatment Note Visit Start Time 13:00 Visit Stop Time 13:45 Total Visit Minutes 45 Visit Number 23 PT-OP-B Current Condition Start: 03/12/20 12:59 Freq: Status: Active Protocol: Document 03/12/20 14:33 [facility] (Rec: 03/12/20 14:50 [facility] [id number]) Current Condition History of Current Condition Onset Date June 2019 History of Current Condition Hernia surgery in June and his pain levels increased. Pain is more on the right side and pain wraps down to the testicle on both sides but it is worse on the right side. He says it felt like a knife pain and at this point it is a little better. This lasted x 4 months and finally it started getting better. He has been told it is nerve pain from the femoral nerve. He wants to see if PT can help. He did have nerve pain prior to his surgery. The right side was more severe than the left. He reports prior to surgery he did have a physical bulge and it was a pretty big . He was experiencing nerve pain in the area of the right testicle. He does note he has some constipation and he had a bought of constipation prior to the hernia. [place] 2 [place] and noted some constipation during this time as well as straining No other abdominal surgeries. Takes muscle relaxants at night for fibromyalgia, takes mortrin 400 mg, Pepsid for GERD that he takes at night, Had been taking gabapenton and occasionally oxycodone, sometimes takes tynelol and motrin combined. He describes a constant regular burning pain but not the sharp jabbing pains any more. Pt has a history of fibromyaliga and GERD. He does meditation and stretching . Treatment Goals Patient/Caregiver Goals Antonio's goals include decreasing pain so that he can avoid further surgery Current Functional Impairments (Reported) Functional Limitations- ADL's pain limits ADL's including lifting and bending activities PT-OP-C Subjective Start: 03/13/20 15:08 Freq: Status: Active Protocol: Document 10/17/20 13:00 [facility] (Rec: 10/17/20 13:03 [facility] [id number]) OP-PT Subjective Patient Comments Patient Comments Pt saw Dr. Stover again today and they worked on a lymph treatment today. HE feels very relaxed. He has been able to walk more now. PT-OP-F Manual Assessment Start: 03/12/20 12:59 Freq: Status: Active Protocol: Document 03/12/20 15:23 [facility] (Rec: 03/13/20 15:25 [facility] [id number]) Manual Assessments Soft Tissue Assessment Soft Tissue Mobility Assessment restrictions in the fascia of the abdominal wall, tightness right greater than left in the fascia over the inguinal hernia regair, limited flexibility of the iliopsoas and quadricpes PT-OP-J Posture/Palpation/Skin Start: 03/12/20 12:59 Freq: Status: Active Protocol: Document 03/13/20 15:06 [facility] (Rec: 03/13/20 15:08 [facility] [id number]) Palpation Assessment Location Three Palpation Location lower abdominal wall B Palpation Findings Soft Tissue Tightness,Muscle Guarding Two Palpation Location iliopsoas Palpation Findings Soft Tissue Tightness Palpation Details left greater than right iliopsoas tightness One Palpation Location quadriceps Palpation Findings Soft Tissue Tightness PT-OP-K Range of Motion Start: 03/12/20 12:59 Freq: Status: Active Protocol: Document 03/12/20 15:23 [facility] (Rec: 03/13/20 15:25 [facility] [id number]) Hip Goniometric Range of Motion Hip Left Extension 8 Right Hip ROM WFL No Extension 5 Hip ROM Limitations Hip ROM Limitations Soft Tissue Tightness Comments limited hip ROM into hip extension right greater than left Prone knee flexion limited due to quad tightness PT-OP-L Special Tests Start: 03/12/20 12:59 Freq: Status: Active Protocol: Document 03/12/20 15:23 [facility] (Rec: 03/13/20 15:25 [facility] [id number]) Special Tests Hip Special Tests Mook Test Results positive Comments iliopsoas tightness B PT-OP-Q Treatments Start: 03/12/20 12:59 Freq: Status: Active Protocol: Document 10/17/20 13:00 [facility] (Rec: 10/17/20 18:11 [facility] [id number]) Therapeutic Exercises Sidelying Exercises sidelying clam shells Sidelying Exercise Name clam shells Reps/Minutes x 10 Comments pt to work on clam shells at home and progress to 3 sets of 10 reps Manual Therapy Treatment Soft Tissue Mobilization abdominal muscle fascial release Body Location abdominal muscle fascial release quad and ITB release Body Location manual quad and ITB Release iliopsoas Body Location iliopsoas Comments release of both the iliacus and the psoas today in supine PT-OP-R Modalities Start: 03/14/20 17:48 Freq: Status: Active Protocol: Document 03/14/20 17:48 [facility] (Rec: 03/14/20 17:48 [facility] [id number]) Hot Pack/Cold Pack Treatment Cold Pack Location B anterior groin Patient Position Supine Patient Tolerance Good PT-OP-T Assessment and Plan Start: 03/12/20 12:59 Freq: Status: Active Protocol: Document 10/17/20 13:00 [facility] (Rec: 10/17/20 18:11 [facility] [id number]) Physical Therapy Assessment Assessment Summary Assessment Much less quad and hip flexor tightness today. Still tight in ITB and pt notes he can feel the ITB when he walks. I added in clam shells for HEP to help with lateral hip stabilization Physical Therapy Plan Frequency and Duration Frequency of Treatment 2x/Week Duration of Treatment 8 Plan of Care Start Date 09/17/20 Plan of Care End Date 11/19/20 Therapeutic Interventions Therapeutic Interventions Home Exercise Program,Manual Therapy,Patient/Caregiver Education,Self-Care/Home Management,Soft Tissue Mobilization,Therapeutic Exercises Modalities Cold Pack/Ice Massage Other Therapeutic Interventions Femoral nerve glides Next Visit Focus/Plan Next Note Type Treatment Note Next Visit Plan recheck clam shells next visit , continue working on manual therapy techniques to help relax the anterior hips. Pt to have dry needling again next week.
--- NOTE | 2020-10-22 15:40 | PT.OTN ---
Current Diagnoses Right lower quadrant pain (10/22/20) Left lower quadrant pain (10/22/20) Physical Therapy Treatment Note PT-OP-A Visit Information Start: 03/12/20 12:59 Freq: Status: Active Protocol: Document 10/22/20 13:04 [facility] (Rec: 10/22/20 13:05 [facility] [id number]) Out-Patient Physical Therapy Visit Information Visit Information Visit Type Treatment Note Visit Start Time 13:00 Visit Stop Time 13:45 Total Visit Minutes 45 Visit Number 24 PT-OP-B Current Condition Start: 03/12/20 12:59 Freq: Status: Active Protocol: Document 03/12/20 14:33 [facility] (Rec: 03/12/20 14:50 [facility] [id number]) Current Condition History of Current Condition Onset Date June 2019 History of Current Condition Hernia surgery in June and his pain levels increased. Pain is more on the right side and pain wraps down to the testicle on both sides but it is worse on the right side. He says it felt like a knife pain and at this point it is a little better. This lasted x 4 months and finally it started getting better. He has been told it is nerve pain from the femoral nerve. He wants to see if PT can help. He did have nerve pain prior to his surgery. The right side was more severe than the left. He reports prior to surgery he did have a physical bulge and it was a pretty big . He was experiencing nerve pain in the area of the right testicle. He does note he has some constipation and he had a bought of constipation prior to the hernia. [place] had [place] 2 months and noted some constipation during this time as well as straining No other abdominal surgeries. Takes muscle relaxants at night for fibromyalgia, takes mortrin 400 mg, Pepsid for GERD that he takes at night, Had been taking gabapenton and occasionally oxycodone, sometimes takes tynelol and motrin combined. He describes a constant regular burning pain but not the sharp jabbing pains any more. Pt has a history of fibromyaliga and GERD. He does meditation and stretching . Treatment Goals Patient/Caregiver Goals Antonio's goals include decreasing pain so that he can avoid further surgery Current Functional Impairments (Reported) Functional Limitations- ADL's pain limits ADL's including lifting and bending activities PT-OP-C Subjective Start: 03/13/20 15:08 Freq: Status: Active Protocol: Document 10/22/20 13:04 [facility] (Rec: 10/22/20 13:05 [facility] [id number]) OP-PT Subjective Patient Comments Patient Comments pt notes he had a rolfing treatment this morning. PT-OP-F Manual Assessment Start: 03/12/20 12:59 Freq: Status: Active Protocol: Document 03/12/20 15:23 [facility] (Rec: 03/13/20 15:25 [facility] [id number]) Manual Assessments Soft Tissue Assessment Soft Tissue Mobility Assessment restrictions in the fascia of the abdominal wall, tightness right greater than left in the fascia over the inguinal hernia regair, limited flexibility of the iliopsoas and quadricpes PT-OP-J Posture/Palpation/Skin Start: 03/12/20 12:59 Freq: Status: Active Protocol: Document 03/13/20 15:06 [facility] (Rec: 03/13/20 15:08 [facility] [id number]) Palpation Assessment Location Three Palpation Location lower abdominal wall B Palpation Findings Soft Tissue Tightness,Muscle Guarding Two Palpation Location iliopsoas Palpation Findings Soft Tissue Tightness Palpation Details left greater than right iliopsoas tightness One Palpation Location quadriceps Palpation Findings Soft Tissue Tightness PT-OP-K Range of Motion Start: 03/12/20 12:59 Freq: Status: Active Protocol: Document 03/12/20 15:23 [facility] (Rec: 03/13/20 15:25 [facility] [id number]) Hip Goniometric Range of Motion Hip Left Extension 8 Right Hip ROM WFL No Extension 5 Hip ROM Limitations Hip ROM Limitations Soft Tissue Tightness Comments limited hip ROM into hip extension right greater than left Prone knee flexion limited due to quad tightness PT-OP-L Special Tests Start: 03/12/20 12:59 Freq: Status: Active Protocol: Document 03/12/20 15:23 [facility] (Rec: 03/13/20 15:25 [facility] [id number]) Special Tests Hip Special Tests Mook Test Results positive Comments iliopsoas tightness B PT-OP-Q Treatments Start: 03/12/20 12:59 Freq: Status: Active Protocol: Document 10/22/20 13:00 [facility] (Rec: 10/22/20 15:40 [facility] [email or web address]) Manual Therapy Treatment Soft Tissue Mobilization quad and ITB release Body Location manual quad and ITB Release 2 Body Location adductor release bilaterally Comments B adductors were very tight today iliopsoas Body Location iliopsoas Comments release of both the iliacus and the psoas today in supine PT-OP-R Modalities Start: 03/14/20 17:48 Freq: Status: Active Protocol: Document 03/14/20 17:48 [facility] (Rec: 03/14/20 17:48 [facility] [id number]) Hot Pack/Cold Pack Treatment Cold Pack Location B anterior groin Patient Position Supine Patient Tolerance Good PT-OP-T Assessment and Plan Start: 03/12/20 12:59 Freq: Status: Active Protocol: Document 10/22/20 13:00 [facility] (Rec: 10/22/20 15:40 [facility] [id number]) Physical Therapy Assessment Assessment Summary Assessment Pt felt tight again today, he did walk some in the snow and may have used more of the iliopsoas. Pt to see Dr. Stover again on for additional dry needling. Physical Therapy Plan Frequency and Duration Frequency of Treatment 2x/Week Duration of Treatment 8 Plan of Care Start Date 09/17/20 Plan of Care End Date 11/19/20
--- NOTE | 2020-10-24 17:20 | PT.OTN ---
Current Diagnoses Right lower quadrant pain (10/24/20) Left lower quadrant pain (10/24/20) Physical Therapy Treatment Note PT-OP-A Visit Information Start: 03/12/20 12:59 Freq: Status: Active Protocol: Document 10/24/20 13:41 [facility] (Rec: 10/24/20 13:42 [facility] [id number]) Out-Patient Physical Therapy Visit Information Visit Information Visit Type Treatment Note Visit Start Time 13:45 Visit Stop Time 14:30 Total Visit Minutes 45 Visit Number 25 PT-OP-B Current Condition Start: 03/12/20 12:59 Freq: Status: Active Protocol: Document 03/12/20 14:33 [facility] (Rec: 03/12/20 14:50 [facility] [id number]) Current Condition History of Current Condition Onset Date June 2019 History of Current Condition Hernia surgery in June and his pain levels increased. Pain is more on the right side and pain wraps down to the testicle on both sides but it is worse on the right side. He says it felt like a knife pain and at this point it is a little better. This lasted x 4 months and finally it started getting better. He has been told it is nerve pain from the femoral nerve. He wants to see if PT can help. He did have nerve pain prior to his surgery. The right side was more severe than the left. He reports prior to surgery he did have a physical bulge and it was a pretty big . He was experiencing nerve pain in the area of the right testicle. He does note he has some constipation and he had a bought of constipation prior to the hernia. [place] had [place] for 2 months and noted some constipation during this time as well as straining No other abdominal surgeries. Takes muscle relaxants at night for fibromyalgia, takes mortrin 400 mg, Pepsid for GERD that he takes at night, Had been taking gabapenton and occasionally oxycodone, sometimes takes tynelol and motrin combined. He describes a constant regular burning pain but not the sharp jabbing pains any more. Pt has a history of fibromyaliga and GERD. He does meditation and stretching . Treatment Goals Patient/Caregiver Goals Antonio's goals include decreasing pain so that he can avoid further surgery Current Functional Impairments (Reported) Functional Limitations- ADL's pain limits ADL's including lifting and bending activities PT-OP-C Subjective Start: 03/13/20 15:08 Freq: Status: Active Protocol: Document 10/24/20 13:44 [facility] (Rec: 10/24/20 13:47 [facility] [id number]) OP-PT Subjective Patient Comments Patient Comments pt had dry needling done today and had 22 needles. he feels like it was really helpful PT-OP-F Manual Assessment Start: 03/12/20 12:59 Freq: Status: Active Protocol: Document 03/12/20 15:23 [facility] (Rec: 03/13/20 15:25 [facility] [id number]) Manual Assessments Soft Tissue Assessment Soft Tissue Mobility Assessment restrictions in the fascia of the abdominal wall, tightness right greater than left in the fascia over the inguinal hernia regair, limited flexibility of the iliopsoas and quadricpes PT-OP-J Posture/Palpation/Skin Start: 03/12/20 12:59 Freq: Status: Active Protocol: Document 03/13/20 15:06 [facility] (Rec: 03/13/20 15:08 [facility] [id number]) Palpation Assessment Location Three Palpation Location lower abdominal wall B Palpation Findings Soft Tissue Tightness,Muscle Guarding Two Palpation Location iliopsoas Palpation Findings Soft Tissue Tightness Palpation Details left greater than right iliopsoas tightness One Palpation Location quadriceps Palpation Findings Soft Tissue Tightness PT-OP-K Range of Motion Start: 03/12/20 12:59 Freq: Status: Active Protocol: Document 03/12/20 15:23 [facility] (Rec: 03/13/20 15:25 [facility] [id number]) Hip Goniometric Range of Motion Hip Left Extension 8 Right Hip ROM WFL No Extension 5 Hip ROM Limitations Hip ROM Limitations Soft Tissue Tightness Comments limited hip ROM into hip extension right greater than left Prone knee flexion limited due to quad tightness PT-OP-L Special Tests Start: 03/12/20 12:59 Freq: Status: Active Protocol: Document 03/12/20 15:23 [facility] (Rec: 03/13/20 15:25 [facility] [id number]) Special Tests Hip Special Tests Mook Test Results positive Comments iliopsoas tightness B PT-OP-Q Treatments Start: 03/12/20 12:59 Freq: Status: Active Protocol: Document 10/24/20 13:45 [facility] (Rec: 10/24/20 17:20 [facility] [id number]) Therapeutic Exercises Supine Exercises bilateral roll outs with theraband Reps/Minutes pt to work up to 3 sets of 10 reps Comments pt was given a theraband for home Manual Therapy Treatment Soft Tissue Mobilization abdominal muscle fascial release Body Location abdominal muscle fascial release quad and ITB release Body Location manual quad and ITB Release Body Position Sidelying iliopsoas Body Location iliopsoas Comments release of both the iliacus and the psoas today in sidelying PT-OP-R Modalities Start: 03/14/20 17:48 Freq: Status: Active Protocol: Document 03/14/20 17:48 [facility] (Rec: 03/14/20 17:48 [facility] [id number]) Hot Pack/Cold Pack Treatment Cold Pack Location B anterior groin Patient Position Supine Patient Tolerance Good PT-OP-T Assessment and Plan Start: 03/12/20 12:59 Freq: Status: Active Protocol: Document 10/24/20 13:45 [facility] (Rec: 10/24/20 17:20 [facility] [id number]) Physical Therapy Assessment Assessment Summary Assessment Pt had been to his appt for dry needlingprior to PT today. I worked on his ITB in sidelying and psoas to try and avoid regions that had been dry needled. Physical Therapy Plan Frequency and Duration Frequency of Treatment 2x/Week Duration of Treatment 8 Plan of Care Start Date 09/17/20 Plan of Care End Date 11/19/20
--- NOTE | 2020-10-29 15:43 | PT.OTN ---
Current Diagnoses Right lower quadrant pain (10/29/20) Left lower quadrant pain (10/29/20) Physical Therapy Treatment Note PT-OP-A Visit Information Start: 03/12/20 12:59 Freq: Status: Active Protocol: Document 10/29/20 13:04 [facility] (Rec: 10/29/20 13:05 [facility] [id number]) Out-Patient Physical Therapy Visit Information Visit Information Visit Type Treatment Note Visit Start Time 13:00 Visit Stop Time 13:45 Total Visit Minutes 45 Visit Number 26 PT-OP-B Current Condition Start: 03/12/20 12:59 Freq: Status: Active Protocol: Document 03/12/20 14:33 [facility] (Rec: 03/12/20 14:50 [facility] [id number]) Current Condition History of Current Condition Onset Date June 2019 History of Current Condition Hernia surgery in June and his pain levels increased. Pain is more on the right side and pain wraps down to the testicle on both sides but it is worse on the right side. He says it felt like a knife pain and at this point it is a little better. This lasted x 4 months and finally it started getting better. He has been told it is nerve pain from the femoral nerve. He wants to see if PT can help. He did have nerve pain prior to his surgery. The right side was more severe than the left. He reports prior to surgery he did have a physical bulge and it was a pretty big . He was experiencing nerve pain in the area of the right testicle. He does note he has some constipation and he had a bought of constipation prior to the hernia. [place] had [place] for 2 months and noted some constipation during this time as well as straining No other abdominal surgeries. Takes muscle relaxants at night for fibromyalgia, takes mortrin 400 mg, Pepsid for GERD that he takes at night, Had been taking gabapenton and occasionally oxycodone, sometimes takes tynelol and motrin combined. He describes a constant regular burning pain but not the sharp jabbing pains any more. Pt has a history of fibromyaliga and GERD. He does meditation and stretching . Treatment Goals Patient/Caregiver Goals Antonio's goals include decreasing pain so that he can avoid further surgery Current Functional Impairments (Reported) Functional Limitations- ADL's pain limits ADL's including lifting and bending activities PT-OP-C Subjective Start: 03/13/20 15:08 Freq: Status: Active Protocol: Document 10/29/20 13:04 [facility] (Rec: 10/29/20 13:05 [facility] [id number]) OP-PT Subjective Patient Comments Patient Comments Pt notes he feels like he is doing a little better today. PT-OP-F Manual Assessment Start: 03/12/20 12:59 Freq: Status: Active Protocol: Document 03/12/20 15:23 [facility] (Rec: 03/13/20 15:25 [facility] [id number]) Manual Assessments Soft Tissue Assessment Soft Tissue Mobility Assessment restrictions in the fascia of the abdominal wall, tightness right greater than left in the fascia over the inguinal hernia regair, limited flexibility of the iliopsoas and quadricpes PT-OP-J Posture/Palpation/Skin Start: 03/12/20 12:59 Freq: Status: Active Protocol: Document 03/13/20 15:06 [facility] (Rec: 03/13/20 15:08 [facility] [id number]) Palpation Assessment Location Three Palpation Location lower abdominal wall B Palpation Findings Soft Tissue Tightness,Muscle Guarding Two Palpation Location iliopsoas Palpation Findings Soft Tissue Tightness Palpation Details left greater than right iliopsoas tightness One Palpation Location quadriceps Palpation Findings Soft Tissue Tightness PT-OP-K Range of Motion Start: 03/12/20 12:59 Freq: Status: Active Protocol: Document 03/12/20 15:23 [facility] (Rec: 03/13/20 15:25 [facility] [id number]) Hip Goniometric Range of Motion Hip Left Extension 8 Right Hip ROM WFL No Extension 5 Hip ROM Limitations Hip ROM Limitations Soft Tissue Tightness Comments limited hip ROM into hip extension right greater than left Prone knee flexion limited due to quad tightness PT-OP-L Special Tests Start: 03/12/20 12:59 Freq: Status: Active Protocol: Document 03/12/20 15:23 [facility] (Rec: 03/13/20 15:25 [facility] [id number]) Special Tests Hip Special Tests Mook Test Results positive Comments iliopsoas tightness B PT-OP-Q Treatments Start: 03/12/20 12:59 Freq: Status: Active Protocol: Document 10/24/20 13:45 [facility] (Rec: 10/24/20 17:20 [facility] [id number]) Therapeutic Exercises Supine Exercises bilateral roll outs with theraband Reps/Minutes pt to work up to 3 sets of 10 reps Comments pt was given a theraband for home Manual Therapy Treatment Soft Tissue Mobilization abdominal muscle fascial release Body Location abdominal muscle fascial release quad and ITB release Body Location manual quad and ITB Release Body Position Sidelying iliopsoas Body Location iliopsoas Comments release of both the iliacus and the psoas today in sidelying PT-OP-R Modalities Start: 03/14/20 17:48 Freq: Status: Active Protocol: Document 03/14/20 17:48 [facility] (Rec: 03/14/20 17:48 [facility] [id number]) Hot Pack/Cold Pack Treatment Cold Pack Location B anterior groin Patient Position Supine Patient Tolerance Good PT-OP-T Assessment and Plan Start: 03/12/20 12:59 Freq: Status: Active Protocol: Document 10/29/20 15:42 [facility] (Rec: 10/29/20 15:43 [facility] [email or web address]) Physical Therapy Assessment Assessment Summary Assessment pt was much looser in his quads and iliopsoas today Physical Therapy Plan Frequency and Duration Frequency of Treatment 2x/Week Duration of Treatment 8 Plan of Care Start Date 09/17/20 Plan of Care End Date 11/19/20 Next Visit Focus/Plan Next Note Type Treatment Note Next Visit Plan recheck clam shells next visit , continue working on manual therapy techniques to help relax the anterior hips. Pt to have dry needling again next week.
--- NOTE | 2020-10-31 17:08 | PT.OTN ---
Current Diagnoses Right lower quadrant pain (10/31/20) Left lower quadrant pain (10/31/20) Physical Therapy Treatment Note PT-OP-A Visit Information Start: 03/12/20 12:59 Freq: Status: Active Protocol: Document 10/31/20 17:00 [facility] (Rec: 10/31/20 17:03 [facility] [id number]) Out-Patient Physical Therapy Visit Information Visit Information Visit Type Treatment Note Visit Start Time 13:00 Visit Stop Time 13:45 Total Visit Minutes 45 Visit Number 27 PT-OP-B Current Condition Start: 03/12/20 12:59 Freq: Status: Active Protocol: Document 03/12/20 14:33 [facility] (Rec: 03/12/20 14:50 [facility] [id number]) Current Condition History of Current Condition Onset Date June 2019 History of Current Condition Hernia surgery in June and his pain levels increased. Pain is more on the right side and pain wraps down to the testicle on both sides but it is worse on the right side. He says it felt like a knife pain and at this point it is a little better. This lasted x 4 months and finally it started getting better. He has been told it is nerve pain from the femoral nerve. He wants to see if PT can help. He did have nerve pain prior to his surgery. The right side was more severe than the left. He reports prior to surgery he did have a physical bulge and it was a pretty big . He was experiencing nerve pain in the area of the right testicle. He does note he has some constipation and he had a bought of constipation prior to the hernia. [place] 2 [place] and noted some constipation during this time as well as straining No other abdominal surgeries. Takes muscle relaxants at night for fibromyalgia, takes mortrin 400 mg, Pepsid for GERD that he takes at night, Had been taking gabapenton and occasionally oxycodone, sometimes takes tynelol and motrin combined. He describes a constant regular burning pain but not the sharp jabbing pains any more. Pt has a history of fibromyaliga and GERD. He does meditation and stretching . Treatment Goals Patient/Caregiver Goals Antonio's goals include decreasing pain so that he can avoid further surgery Current Functional Impairments (Reported) Functional Limitations- ADL's pain limits ADL's including lifting and bending activities PT-OP-C Subjective Start: 03/13/20 15:08 Freq: Status: Active Protocol: Document 10/31/20 17:00 [facility] (Rec: 10/31/20 17:03 [facility] [id number]) OP-PT Subjective Patient Comments Patient Comments pt reports he feels like things are calming down and he is starting to feel better PT-OP-F Manual Assessment Start: 03/12/20 12:59 Freq: Status: Active Protocol: Document 03/12/20 15:23 [facility] (Rec: 03/13/20 15:25 [facility] [id number]) Manual Assessments Soft Tissue Assessment Soft Tissue Mobility Assessment restrictions in the fascia of the abdominal wall, tightness right greater than left in the fascia over the inguinal hernia regair, limited flexibility of the iliopsoas and quadricpes PT-OP-J Posture/Palpation/Skin Start: 03/12/20 12:59 Freq: Status: Active Protocol: Document 03/13/20 15:06 [facility] (Rec: 03/13/20 15:08 [facility] [id number]) Palpation Assessment Location Three Palpation Location lower abdominal wall B Palpation Findings Soft Tissue Tightness,Muscle Guarding Two Palpation Location iliopsoas Palpation Findings Soft Tissue Tightness Palpation Details left greater than right iliopsoas tightness One Palpation Location quadriceps Palpation Findings Soft Tissue Tightness PT-OP-K Range of Motion Start: 03/12/20 12:59 Freq: Status: Active Protocol: Document 03/12/20 15:23 [facility] (Rec: 03/13/20 15:25 [facility] [id number]) Hip Goniometric Range of Motion Hip Left Extension 8 Right Hip ROM WFL No Extension 5 Hip ROM Limitations Hip ROM Limitations Soft Tissue Tightness Comments limited hip ROM into hip extension right greater than left Prone knee flexion limited due to quad tightness PT-OP-L Special Tests Start: 03/12/20 12:59 Freq: Status: Active Protocol: Document 03/12/20 15:23 [facility] (Rec: 03/13/20 15:25 [facility] [id number]) Special Tests Hip Special Tests Mook Test Results positive Comments iliopsoas tightness B PT-OP-Q Treatments Start: 03/12/20 12:59 Freq: Status: Active Protocol: Document 10/31/20 17:04 [facility] (Rec: 10/31/20 17:08 [facility] [id number]) Manual Therapy Treatment Soft Tissue Mobilization abdominal muscle fascial release Body Location abdominal muscle fascial release quad and ITB release Body Location manual quad and ITB Release Body Position Sidelying 2 Body Location adductor release bilaterally Comments B adductors were very tight today iliopsoas Body Location iliopsoas Comments release of both the iliacus and the psoas today in sidelying PT-OP-R Modalities Start: 03/14/20 17:48 Freq: Status: Active Protocol: Document 03/14/20 17:48 [facility] (Rec: 03/14/20 17:48 [facility] [id number]) Hot Pack/Cold Pack Treatment Cold Pack Location B anterior groin Patient Position Supine Patient Tolerance Good PT-OP-T Assessment and Plan Start: 03/12/20 12:59 Freq: Status: Active Protocol: Document 10/31/20 17:00 [facility] (Rec: 10/31/20 17:03 [facility] [id number]) Physical Therapy Assessment Assessment Summary Assessment I was able to release the psoas better today in sidelying. Pt demonstrating improved hip ROM into extension. Physical Therapy Plan Frequency and Duration Frequency of Treatment 2x/Week Duration of Treatment 8 Plan of Care Start Date 09/17/20 Plan of Care End Date 11/19/20 Therapeutic Interventions Therapeutic Interventions Home Exercise Program,Manual Therapy,Patient/Caregiver Education,Self-Care/Home Management,Soft Tissue Mobilization,Therapeutic Exercises Modalities Cold Pack/Ice Massage Other Therapeutic Interventions Femoral nerve glides Next Visit Focus/Plan Next Note Type Treatment Note Next Visit Plan recheck clam shells next visit , continue working on manual therapy techniques to help relax the anterior hips. Pt to have dry needling again next week.
--- NOTE | 2020-11-20 14:04 | PT.OTN ---
Current Diagnoses Right lower quadrant pain (11/20/20) Left lower quadrant pain (11/20/20) Physical Therapy Treatment Note PT-OP-A Visit Information Start: 03/12/20 12:59 Freq: Status: Active Protocol: Document 11/20/20 11:15 [facility] (Rec: 11/20/20 11:22 [facility] [id number]) Out-Patient Physical Therapy Visit Information Visit Information Visit Type Progress Note Visit Start Time 11:15 Visit Stop Time 12:00 Total Visit Minutes 45 Visit Number 28 PT-OP-B Current Condition Start: 03/12/20 12:59 Freq: Status: Active Protocol: Document 03/12/20 14:33 [facility] (Rec: 03/12/20 14:50 [facility] [id number]) Current Condition History of Current Condition Onset Date June 2019 History of Current Condition Hernia surgery in June and his pain levels increased. Pain is more on the right side and pain wraps down to the testicle on both sides but it is worse on the right side. He says it felt like a knife pain and at this point it is a little better. This lasted x 4 months and finally it started getting better. He has been told it is nerve pain from the femoral nerve. He wants to see if PT can help. He did have nerve pain prior to his surgery. The right side was more severe than the left. He reports prior to surgery he did have a physical bulge and it was a pretty big . He was experiencing nerve pain in the area of the right testicle. He does note he has some constipation and he had a bought of constipation prior to the hernia. He had been on his boat for 2 months and noted some constipation during this time as well as straining No other abdominal surgeries. Takes muscle relaxants at night for fibromyalgia, takes mortrin 400 mg, Pepsid for GERD that he takes at night, Had been taking gabapenton and occasionally oxycodone, sometimes takes tynelol and motrin combined. He describes a constant regular burning pain but not the sharp jabbing pains any more. Pt has a history of fibromyaliga and GERD. He does meditation and stretching . Treatment Goals Patient/Caregiver Goals Antonio's goals include decreasing pain so that he can avoid further surgery Current Functional Impairments (Reported) Functional Limitations- ADL's pain limits ADL's including lifting and bending activities PT-OP-C Subjective Start: 03/13/20 15:08 Freq: Status: Active Protocol: Document 11/20/20 11:15 [facility] (Rec: 11/20/20 11:22 [facility] [id number]) OP-PT Subjective Patient Comments Patient Comments pt notes he is doing pretty well despite the steep ramps they had to go up on the boat trip. He was able to do hikes and felt it some afterwards. His last dry needling was a week ago Wednesday. PT-OP-F Manual Assessment Start: 03/12/20 12:59 Freq: Status: Active Protocol: Document 03/12/20 15:23 [facility] (Rec: 03/13/20 15:25 [facility] [id number]) Manual Assessments Soft Tissue Assessment Soft Tissue Mobility Assessment restrictions in the fascia of the abdominal wall, tightness right greater than left in the fascia over the inguinal hernia regair, limited flexibility of the iliopsoas and quadricpes PT-OP-J Posture/Palpation/Skin Start: 03/12/20 12:59 Freq: Status: Active Protocol: Document 03/13/20 15:06 [facility] (Rec: 03/13/20 15:08 [facility] [id number]) Palpation Assessment Location Three Palpation Location lower abdominal wall B Palpation Findings Soft Tissue Tightness,Muscle Guarding Two Palpation Location iliopsoas Palpation Findings Soft Tissue Tightness Palpation Details left greater than right iliopsoas tightness One Palpation Location quadriceps Palpation Findings Soft Tissue Tightness PT-OP-K Range of Motion Start: 03/12/20 12:59 Freq: Status: Active Protocol: Document 03/12/20 15:23 [facility] (Rec: 03/13/20 15:25 [facility] [id number]) Hip Goniometric Range of Motion Hip Left Extension 8 Right Hip ROM WFL No Extension 5 Hip ROM Limitations Hip ROM Limitations Soft Tissue Tightness Comments limited hip ROM into hip extension right greater than left Prone knee flexion limited due to quad tightness PT-OP-L Special Tests Start: 03/12/20 12:59 Freq: Status: Active Protocol: Document 03/12/20 15:23 [facility] (Rec: 03/13/20 15:25 [facility] [id number]) Special Tests Hip Special Tests Mook Test Results positive Comments iliopsoas tightness B PT-OP-Q Treatments Start: 03/12/20 12:59 Freq: Status: Active Protocol: Document 11/20/20 11:15 [facility] (Rec: 11/20/20 12:21 [facility] [id number]) Manual Therapy Treatment Soft Tissue Mobilization abdominal muscle fascial release Body Location abdominal muscle fascial release quad and ITB release Body Location manual quad and ITB Release Body Position Sidelying iliopsoas Body Location iliopsoas Comments release of both the iliacus and the psoas today in sidelying Self-Care/Home Management Treatment Activities Self-Care/Home Management Activities pt educated on dry brushing for improved lymphatic flow PT-OP-R Modalities Start: 03/14/20 17:48 Freq: Status: Active Protocol: Document 03/14/20 17:48 [facility] (Rec: 03/14/20 17:48 [facility] [id number]) Hot Pack/Cold Pack Treatment Cold Pack Location B anterior groin Patient Position Supine Patient Tolerance Good PT-OP-T Assessment and Plan Start: 03/12/20 12:59 Freq: Status: Active Protocol: Document 11/20/20 11:15 [facility] (Rec: 11/20/20 12:21 [facility] [id number]) Physical Therapy Assessment Assessment Summary Assessment Antonio appears to be doing better although he still has tightness he has been able to do some hiking. He still has feeling of tightness following activity and has days where he feels he needs pain meds and is unble to be active. This appears intermittent now instead of constant. I am still finding myofascial restrictions with him however this does seem to be improving overall. He has seen Dr. Stover now for dry needling and this is also helping. He would benefit from continued PT Physical Therapy Plan Frequency and Duration Frequency of Treatment 2x/Week Duration of Treatment 8 Plan of Care Start Date 11/20/20 Plan of Care End Date 01/15/21 Therapeutic Interventions Therapeutic Interventions Home Exercise Program,Manual Therapy,Patient/Caregiver Education,Self-Care/Home Management,Soft Tissue Mobilization,Therapeutic Exercises Modalities Cold Pack/Ice Massage Other Therapeutic Interventions Femoral nerve glides Next Visit Focus/Plan Next Note Type Treatment Note Next Visit Plan Continue working on manual therapy techniques to help relax the anterior hips. Pt to have dry needling again next week.
--- NOTE | 2020-11-20 14:07 | PT.OPPN ---
Current Diagnoses Right lower quadrant pain (11/20/20) Left lower quadrant pain (11/20/20) Physical Therapy Progress Note PT-OP-A Visit Information Start: 03/12/20 12:59 Freq: Status: Active Protocol: Document 11/20/20 11:15 [facility] (Rec: 11/20/20 11:22 [facility] [id number]) Out-Patient Physical Therapy Visit Information Visit Information Visit Type Progress Note Visit Start Time 11:15 Visit Stop Time 12:00 Total Visit Minutes 45 Visit Number 28 PT-OP-B Current Condition Start: 03/12/20 12:59 Freq: Status: Active Protocol: Document 03/12/20 14:33 [facility] (Rec: 03/12/20 14:50 [facility] [id number]) Current Condition History of Current Condition Onset Date June 2019 History of Current Condition Hernia surgery in June and his pain levels increased. Pain is more on the right side and pain wraps down to the testicle on both sides but it is worse on the right side. He says it felt like a knife pain and at this point it is a little better. This lasted x 4 months and finally it started getting better. He has been told it is nerve pain from the femoral nerve. He wants to see if PT can help. He did have nerve pain prior to his surgery. The right side was more severe than the left. He reports prior to surgery he did have a physical bulge and it was a pretty big . He was experiencing nerve pain in the area of the right testicle. He does note he has some constipation and he had a bought of constipation prior to the hernia. He had been on his boat for 2 months and noted some constipation during this time as well as straining No other abdominal surgeries. Takes muscle relaxants at night for fibromyalgia, takes mortrin 400 mg, Pepsid for GERD that he takes at night, Had been taking gabapenton and occasionally oxycodone, sometimes takes tynelol and motrin combined. He describes a constant regular burning pain but not the sharp jabbing pains any more. Pt has a history of fibromyaliga and GERD. He does meditation and stretching . Treatment Goals Patient/Caregiver Goals Antonio's goals include decreasing pain so that he can avoid further surgery Current Functional Impairments (Reported) Functional Limitations- ADL's pain limits ADL's including lifting and bending activities PT-OP-C Subjective Start: 03/13/20 15:08 Freq: Status: Active Protocol: Document 11/20/20 11:15 [facility] (Rec: 11/20/20 11:22 [facility] [id number]) OP-PT Subjective Patient Comments Patient Comments pt notes he is doing pretty well despite the steep ramps they had to go up on the boat trip. He was able to do hikes and felt it some afterwards. His last dry needling was a week ago Wednesday. PT-OP-F Manual Assessment Start: 03/12/20 12:59 Freq: Status: Active Protocol: Document 03/12/20 15:23 [facility] (Rec: 03/13/20 15:25 [facility] [id number]) Manual Assessments Soft Tissue Assessment Soft Tissue Mobility Assessment restrictions in the fascia of the abdominal wall, tightness right greater than left in the fascia over the inguinal hernia regair, limited flexibility of the iliopsoas and quadricpes PT-OP-J Posture/Palpation/Skin Start: 03/12/20 12:59 Freq: Status: Active Protocol: Document 03/13/20 15:06 [facility] (Rec: 03/13/20 15:08 [facility] [id number]) Palpation Assessment Location Three Palpation Location lower abdominal wall B Palpation Findings Soft Tissue Tightness,Muscle Guarding Two Palpation Location iliopsoas Palpation Findings Soft Tissue Tightness Palpation Details left greater than right iliopsoas tightness One Palpation Location quadriceps Palpation Findings Soft Tissue Tightness PT-OP-K Range of Motion Start: 03/12/20 12:59 Freq: Status: Active Protocol: Document 03/12/20 15:23 [facility] (Rec: 03/13/20 15:25 [facility] [id number]) Hip Goniometric Range of Motion Hip Measured in Degrees Left Extension 8 Right Hip ROM WFL No Extension 5 Hip ROM Limitations Hip ROM Limitations Soft Tissue Tightness Comments limited hip ROM into hip extension right greater than left Prone knee flexion limited due to quad tightness PT-OP-L Special Tests Start: 03/12/20 12:59 Freq: Status: Active Protocol: Document 03/12/20 15:23 [facility] (Rec: 03/13/20 15:25 [facility] [id number]) Special Tests Hip Special Tests Mook Test Results positive Comments iliopsoas tightness B PT-OP-T Assessment and Plan Start: 03/12/20 12:59 Freq: Status: Active Protocol: Document 11/20/20 11:15 [facility] (Rec: 11/20/20 12:21 [facility] [email or web address]) Physical Therapy Assessment Goals Three Impairment Myofascial restrictions of the abdominal fascia right greater than left Usp Goal (LTG) Improved mobiilty of the fascial mobility of the anterior abdominal wall with stretches and manual therapy techniques GOOD PROGRESS AND GOOD TOLERANCE LTG Duration 8 weeks Two Impairment Decreased flexibility of the iliopsoas and quadriceps Short Term Goal (STG) Antonio is given a home stretching program for the anterior hips and abdominal wall and he feels independent with his program GOal MET STG Duration 6 weeks One Impairment Right greater than left inguinal pain rated 6/10 Usp Goal (LTG) Antonio notes a overall reduction of pain following PT with pain levels dropping to 1-2/10 GOOD PROGRESS and Antonio has been able to go back to some hiking. He does get tightness following his hikes and has had to watch that he is not over doing but he is able to do some hiking now. LTG Duration 8 weeks Progress Towards Goals Progress Towards Goals Progressing Toward Goals Assessment Summary Assessment Antonio appears to be doing better although he still has tightness he has been able to do some hiking. He still has feeling of tightness following activity and has days where he feels he needs pain meds and is unable to be active. This appears intermittent now instead of constant. I am still finding myofascial restrictions with him however this does seem to be improving overall. He has seen Dr. Stover now for dry needling and this is also helping. He would benefit from continued PT Physical Therapy Plan Frequency and Duration Frequency of Treatment 2x/Week Duration of Treatment 8 Plan of Care Start Date 11/20/20 Plan of Care End Date 01/15/21 Therapeutic Interventions Therapeutic Interventions Home Exercise Program,Manual Therapy,Patient/Caregiver Education,Self-Care/Home Management,Soft Tissue Mobilization,Therapeutic Exercises Modalities Cold Pack/Ice Massage Other Therapeutic Interventions Femoral nerve glides Next Visit Focus/Plan Next Note Type Treatment Note Next Visit Plan Continue working on manual therapy techniques to help relax the anterior hips. Pt to have dry needling again next week.
--- NOTE | 2020-11-20 14:08 | PT.OPPOC ---
Physical, Occupational & Speech Therapy At [facility] Current Diagnoses Right lower quadrant pain (11/20/20) Left lower quadrant pain (11/20/20) Visit Care Team Role Provider Type Matthew Guzman MD Primary Care Provider Physician Specialty: Internal Medicine Address: [address] [place] [address], [address], [place], [address] Email: [email or web address] Sara Carranza MD Attending Provider Physician Referring Provider Specialty: General Surgery Address: [address] [place] [address], [address] Email: [email or web address] Plan Of Care PT-OP-T Assessment and Plan Start: 03/12/20 12:59 Freq: Status: Active Protocol: Document 11/20/20 11:15 [facility] (Rec: 11/20/20 12:21 [email or web address]) Physical Therapy Assessment Goals Three Impairment Myofascial restrictions of the abdominal fascia right greater than left Senior Living Goal (LTG) Improved mobility of the fascial mobility of the anterior abdominal wall with stretches and manual therapy techniques GOOD PROGRESS AND GOOD TOLERANCE LTG Duration 8 weeks Two Impairment Decreased flexibility of the iliopsoas and quadriceps Short Term Goal (STG) Antonio is given a home stretching program for the anterior hips and abdominal wall and he feels independent with his program GOal MET STG Duration 6 weeks One Impairment Right greater than left inguinal pain rated 6/10 Senior Living Goal (LTG) Antonio notes a overall reduction of pain following PT with pain levels dropping to 1-2/10 GOOD PROGRESS and Antonio has been able to go back to some hiking. He does get tightness following his hikes and has had to watch that he is not over doing but he is able to do some hiking now. LTG Duration 8 weeks Progress Towards Goals Progress Towards Goals Progressing Toward Goals Assessment Summary Assessment Antonio appears to be doing better although he still has tightness he has been able to do some hiking. He still has feeling of tightness following activity and has days where he feels he needs pain meds and is unable to be active. This appears intermittent now instead of constant. I am still finding myofascial restrictions with him however this does seem to be improving overall. He has seen Dr. Stover now for dry needling and this is also helping. He would benefit from continued PT Physical Therapy Plan Frequency and Duration Frequency of Treatment 2x/Week Duration of Treatment 8 Plan of Care Start Date 11/20/20 Plan of Care End Date 01/15/21 Therapeutic Interventions Therapeutic Interventions Home Exercise Program,Manual Therapy,Patient/Caregiver Education,Self-Care/Home Management,Soft Tissue Mobilization,Therapeutic Exercises Modalities Cold Pack/Ice Massage Other Therapeutic Interventions Femoral nerve glides Next Visit Focus/Plan Next Note Type Treatment Note Next Visit Plan Continue working on manual therapy techniques to help relax the anterior hips. Pt to have dry needling again next week. Plan of Care Dates Plan of Care Start Date 11/20/20 Plan of Care End Date 01/15/21 Electronically Signed by: Sanam Carson, PT 11/20/20 [id number] Please Sign and Return: I have reviewed this Plan of Care and certify that the skilled therapy services above are required to meet the patient?s needs. Physician Signature Date Printed Name and Credentials Clinical Instructor Signature Printed Name and Credentials
--- NOTE | 2020-11-28 11:51 | PT.OTN ---
Current Diagnoses Right lower quadrant pain (11/28/20) Left lower quadrant pain (11/28/20) Physical Therapy Treatment Note PT-OP-A Visit Information Start: 03/12/20 12:59 Freq: Status: Active Protocol: Document 11/28/20 11:46 [facility] (Rec: 11/28/20 11:51 [facility] [email or web address]) Out-Patient Physical Therapy Visit Information Visit Information Visit Type Treatment Note Visit Start Time 09:00 Visit Stop Time 09:45 Total Visit Minutes 45 Visit Number 29 PT-OP-B Current Condition Start: 03/12/20 12:59 Freq: Status: Active Protocol: Document 03/12/20 14:33 [facility] (Rec: 03/12/20 14:50 [facility] [id number]) Current Condition History of Current Condition Onset Date June 2019 History of Current Condition Hernia surgery in June and his pain levels increased. Pain is more on the right side and pain wraps down to the testicle on both sides but it is worse on the right side. He says it felt like a knife pain and at this point it is a little better. This lasted x 4 months and finally it started getting better. He has been told it is nerve pain from the femoral nerve. He wants to see if PT can help. He did have nerve pain prior to his surgery. The right side was more severe than the left. He reports prior to surgery he did have a physical bulge and it was a pretty big . He was experiencing nerve pain in the area of the right testicle. He does note he has some constipation and he had a bought of constipation prior to the hernia. He had been on his boat for 2 months and noted some constipation during this time as well as straining No other abdominal surgeries. Takes muscle relaxants at night for fibromyalgia, takes mortrin 400 mg, Pepsid for GERD that he takes at night, Had been taking gabapenton and occasionally oxycodone, sometimes takes tynelol and motrin combined. He describes a constant regular burning pain but not the sharp jabbing pains any more. Pt has a history of fibromyaliga and GERD. He does meditation and stretching . Treatment Goals Patient/Caregiver Goals Antonio's goals include decreasing pain so that he can avoid further surgery Current Functional Impairments (Reported) Functional Limitations- ADL's pain limits ADL's including lifting and bending activities PT-OP-C Subjective Start: 03/13/20 15:08 Freq: Status: Active Protocol: Document 11/28/20 11:46 [facility] (Rec: 11/28/20 11:51 [facility] [id number]) OP-PT Subjective Patient Comments Patient Comments pt notes he is feeling like his lymph system is involved as after his lymph treatments he feels sice for a few days. He continues to have on going leg pain. He plans on making a appointment with Dr. Lei for further consult. He would like to use his last 2 scheduled PT visits as he feels he gets some relief followign PT. PT-OP-F Manual Assessment Start: 03/12/20 12:59 Freq: Status: Active Protocol: Document 03/12/20 15:23 [facility] (Rec: 03/13/20 15:25 [facility] [id number]) Manual Assessments Soft Tissue Assessment Soft Tissue Mobility Assessment restrictions in the fascia of the abdominal wall, tightness right greater than left in the fascia over the inguinal hernia regair, limited flexibility of the iliopsoas and quadricpes PT-OP-J Posture/Palpation/Skin Start: 03/12/20 12:59 Freq: Status: Active Protocol: Document 03/13/20 15:06 [facility] (Rec: 03/13/20 15:08 [facility] [id number]) Palpation Assessment Location Three Palpation Location lower abdominal wall B Palpation Findings Soft Tissue Tightness,Muscle Guarding Two Palpation Location iliopsoas Palpation Findings Soft Tissue Tightness Palpation Details left greater than right iliopsoas tightness One Palpation Location quadriceps Palpation Findings Soft Tissue Tightness PT-OP-K Range of Motion Start: 03/12/20 12:59 Freq: Status: Active Protocol: Document 03/12/20 15:23 [facility] (Rec: 03/13/20 15:25 [facility] [id number]) Hip Goniometric Range of Motion Hip Left Extension 8 Right Hip ROM WFL No Extension 5 Hip ROM Limitations Hip ROM Limitations Soft Tissue Tightness Comments limited hip ROM into hip extension right greater than left Prone knee flexion limited due to quad tightness PT-OP-L Special Tests Start: 03/12/20 12:59 Freq: Status: Active Protocol: Document 03/12/20 15:23 [facility] (Rec: 03/13/20 15:25 [facility] [id number]) Special Tests Hip Special Tests Mook Test Results positive Comments iliopsoas tightness B PT-OP-Q Treatments Start: 03/12/20 12:59 Freq: Status: Active Protocol: Document 11/28/20 11:46 [facility] (Rec: 11/28/20 11:51 [email or web address]) Manual Therapy Treatment Soft Tissue Mobilization abdominal muscle fascial release Body Location abdominal muscle fascial release quad and ITB release Body Location manual quad and ITB Release Body Position Sidelying 2 Body Location adductor release bilaterally Comments B adductors were very tight today iliopsoas Body Location iliopsoas Comments release of both the iliacus and the psoas today in sidelying PT-OP-R Modalities Start: 03/14/20 17:48 Freq: Status: Active Protocol: Document 03/14/20 17:48 [facility] (Rec: 03/14/20 17:48 [facility] [email or web address]) Hot Pack/Cold Pack Treatment Cold Pack Location B anterior groin Patient Position Supine Patient Tolerance Good PT-OP-T Assessment and Plan Start: 03/12/20 12:59 Freq: Status: Active Protocol: Document 11/28/20 11:46 [facility] (Rec: 11/28/20 11:51 [email or web address]) Physical Therapy Assessment Assessment Summary Assessment Due to intermittent episodes of increased pain I agree Antonio should consult with his MD. He did report today some bowel issues as well and I explained how any constipation can create more pressure in the inguinal region. Physical Therapy Plan Frequency and Duration Frequency of Treatment 2x/Week Duration of Treatment 8 Plan of Care Start Date 11/20/20 Plan of Care End Date 01/15/21 Therapeutic Interventions Therapeutic Interventions Home Exercise Program,Manual Therapy,Patient/Caregiver Education,Self-Care/Home Management,Soft Tissue Mobilization,Therapeutic Exercises Modalities Cold Pack/Ice Massage Other Therapeutic Interventions Femoral nerve glides Next Visit Focus/Plan Next Note Type Treatment Note Next Visit Plan Continue x 2 visits on MFR and scar tissue release
--- NOTE | 2020-12-05 09:23 | PT.OTN ---
Current Diagnoses Right lower quadrant pain (12/04/20) Left lower quadrant pain (12/04/20) Physical Therapy Treatment Note PT-OP-A Visit Information Start: 03/12/20 12:59 Freq: Status: Active Protocol: Document 12/04/20 11:15 [facility] (Rec: 12/05/20 09:23 [facility] [id number]) Out-Patient Physical Therapy Visit Information Visit Information Visit Type Treatment Note Visit Start Time 11:15 Visit Stop Time 12:00 Total Visit Minutes 45 Visit Number 30 PT-OP-B Current Condition Start: 03/12/20 12:59 Freq: Status: Active Protocol: Document 03/12/20 14:33 [facility] (Rec: 03/12/20 14:50 [facility] [id number]) Current Condition History of Current Condition Onset Date June 2019 History of Current Condition Hernia surgery in June and his pain levels increased. Pain is more on the right side and pain wraps down to the testicle on both sides but it is worse on the right side. He says it felt like a knife pain and at this point it is a little better. This lasted x 4 months and finally it started getting better. He has been told it is nerve pain from the femoral nerve. He wants to see if PT can help. He did have nerve pain prior to his surgery. The right side was more severe than the left. He reports prior to surgery he did have a physical bulge and it was a pretty big . He was experiencing nerve pain in the area of the right testicle. He does note he has some constipation and he had a bought of constipation prior to the hernia. [place] had [place] 2 months and noted some constipation during this time as well as straining No other abdominal surgeries. Takes muscle relaxants at night for fibromyalgia, takes mortrin 400 mg, Pepsid for GERD that he takes at night, Had been taking gabapenton and occasionally oxycodone, sometimes takes tynelol and motrin combined. He describes a constant regular burning pain but not the sharp jabbing pains any more. Pt has a history of fibromyaliga and GERD. He does meditation and stretching . Treatment Goals Patient/Caregiver Goals Antonio's goals include decreasing pain so that he can avoid further surgery Current Functional Impairments (Reported) Functional Limitations- ADL's pain limits ADL's including lifting and bending activities PT-OP-C Subjective Start: 03/13/20 15:08 Freq: Status: Active Protocol: Document 12/04/20 11:15 [facility] (Rec: 12/05/20 09:23 [facility] [id number]) OP-PT Subjective Patient Comments Patient Comments pt reports he has had lab work done as he is feeling that his lymphatic system is working hard and he has experienced some swelling under his arms. He has also had black stool so is getting a colonoscopy. He has one visit left in PT after today PT-OP-F Manual Assessment Start: 03/12/20 12:59 Freq: Status: Active Protocol: Document 03/12/20 15:23 [facility] (Rec: 03/13/20 15:25 [facility] [id number]) Manual Assessments Soft Tissue Assessment Soft Tissue Mobility Assessment restrictions in the fascia of the abdominal wall, tightness right greater than left in the fascia over the inguinal hernia regair, limited flexibility of the iliopsoas and quadricpes PT-OP-J Posture/Palpation/Skin Start: 03/12/20 12:59 Freq: Status: Active Protocol: Document 03/13/20 15:06 [facility] (Rec: 03/13/20 15:08 [facility] [id number]) Palpation Assessment Location Three Palpation Location lower abdominal wall B Palpation Findings Soft Tissue Tightness,Muscle Guarding Two Palpation Location iliopsoas Palpation Findings Soft Tissue Tightness Palpation Details left greater than right iliopsoas tightness One Palpation Location quadriceps Palpation Findings Soft Tissue Tightness PT-OP-K Range of Motion Start: 03/12/20 12:59 Freq: Status: Active Protocol: Document 03/12/20 15:23 [facility] (Rec: 03/13/20 15:25 [facility] [id number]) Hip Goniometric Range of Motion Hip Left Extension 8 Right Hip ROM WFL No Extension 5 Hip ROM Limitations Hip ROM Limitations Soft Tissue Tightness Comments limited hip ROM into hip extension right greater than left Prone knee flexion limited due to quad tightness PT-OP-L Special Tests Start: 03/12/20 12:59 Freq: Status: Active Protocol: Document 03/12/20 15:23 [facility] (Rec: 03/13/20 15:25 [facility] [id number]) Special Tests Hip Special Tests Mook Test Results positive Comments iliopsoas tightness B PT-OP-Q Treatments Start: 03/12/20 12:59 Freq: Status: Active Protocol: Document 12/04/20 11:15 [facility] (Rec: 12/05/20 09:23 [facility] [email or web address]) Manual Therapy Treatment Soft Tissue Mobilization abdominal muscle fascial release Body Location abdominal muscle fascial release quad and ITB release Body Location manual quad and ITB Release Body Position Sidelying iliopsoas Body Location iliopsoas Comments release of both the iliacus and the psoas today in sidelying PT-OP-R Modalities Start: 03/14/20 17:48 Freq: Status: Active Protocol: Document 03/14/20 17:48 [facility] (Rec: 03/14/20 17:48 [facility] [id number]) Hot Pack/Cold Pack Treatment Cold Pack Location B anterior groin Patient Position Supine Patient Tolerance Good PT-OP-T Assessment and Plan Start: 03/12/20 12:59 Freq: Status: Active Protocol: Document 12/04/20 11:15 [facility] (Rec: 12/05/20 09:23 [facility] [id number]) Physical Therapy Assessment Assessment Summary Assessment pt has one visit left in PT. He notes he gains temporary relief but he continues to have symptoms. Will treat one last visit and then DC PT. In the mean time he has had lab work done and is getting scheduled for a colonoscopy. Physical Therapy Plan Frequency and Duration Frequency of Treatment 2x/Week Duration of Treatment 8 Plan of Care Start Date 11/20/20 Plan of Care End Date 01/15/21 Therapeutic Interventions Therapeutic Interventions Home Exercise Program,Manual Therapy,Patient/Caregiver Education,Self-Care/Home Management,Soft Tissue Mobilization,Therapeutic Exercises Modalities Cold Pack/Ice Massage Other Therapeutic Interventions Femoral nerve glides Next Visit Focus/Plan Next Note Type Treatment Note Next Visit Plan This next visit will be the last one scheduled in PT. Review all stretches and exercises for HEP
--- NOTE | 2020-12-19 15:05 | PT.OTN ---
Current Diagnoses Right lower quadrant pain (12/19/20) Left lower quadrant pain (12/19/20) Physical Therapy Treatment Note PT-OP-A Visit Information Start: 03/12/20 12:59 Freq: Status: Active Protocol: Document 12/19/20 11:12 [facility] (Rec: 12/19/20 11:18 [facility] [id number]) Out-Patient Physical Therapy Visit Information Visit Information Visit Type Treatment Note Visit Start Time 11:15 Visit Stop Time 12:00 Total Visit Minutes 45 Visit Number 31 PT-OP-B Current Condition Start: 03/12/20 12:59 Freq: Status: Active Protocol: Document 03/12/20 14:33 [facility] (Rec: 03/12/20 14:50 [facility] [id number]) Current Condition History of Current Condition Onset Date June 2019 History of Current Condition Hernia surgery in June and his pain levels increased. Pain is more on the right side and pain wraps down to the testicle on both sides but it is worse on the right side. He says it felt like a knife pain and at this point it is a little better. This lasted x 4 months and finally it started getting better. He has been told it is nerve pain from the femoral nerve. He wants to see if PT can help. He did have nerve pain prior to his surgery. The right side was more severe than the left. He reports prior to surgery he did have a physical bulge and it was a pretty big . He was experiencing nerve pain in the area of the right testicle. He does note he has some constipation and he had a bought of constipation prior to the hernia. He had been on [place] boat for 2 months and noted some constipation during this time as well as straining No other abdominal surgeries. Takes muscle relaxants at night for fibromyalgia, takes mortrin 400 mg, Pepsid for GERD that he takes at night, Had been taking gabapenton and occasionally oxycodone, sometimes takes tynelol and motrin combined. He describes a constant regular burning pain but not the sharp jabbing pains any more. Pt has a history of fibromyaliga and GERD. He does meditation and stretching . Treatment Goals Patient/Caregiver Goals Antonio's goals include decreasing pain so that he can avoid further surgery Current Functional Impairments (Reported) Functional Limitations- ADL's pain limits ADL's including lifting and bending activities PT-OP-C Subjective Start: 03/13/20 15:08 Freq: Status: Active Protocol: Document 12/19/20 11:12 [facility] (Rec: 12/19/20 11:18 [facility] [id number]) OP-PT Subjective Patient Comments Patient Comments 12 days following his first vaccination he started getting night sweats for 6 days, temperatures at night. His blood work came back negative. He is still swollen and painful in the left axilla. He will have a colonoscopy. PT-OP-F Manual Assessment Start: 03/12/20 12:59 Freq: Status: Active Protocol: Document 03/12/20 15:23 [facility] (Rec: 03/13/20 15:25 [facility] [id number]) Manual Assessments Soft Tissue Assessment Soft Tissue Mobility Assessment restrictions in the fascia of the abdominal wall, tightness right greater than left in the fascia over the inguinal hernia regair, limited flexibility of the iliopsoas and quadricpes PT-OP-J Posture/Palpation/Skin Start: 03/12/20 12:59 Freq: Status: Active Protocol: Document 03/13/20 15:06 [facility] (Rec: 03/13/20 15:08 [facility] [id number]) Palpation Assessment Location Three Palpation Location lower abdominal wall B Palpation Findings Soft Tissue Tightness,Muscle Guarding Two Palpation Location iliopsoas Palpation Findings Soft Tissue Tightness Palpation Details left greater than right iliopsoas tightness One Palpation Location quadriceps Palpation Findings Soft Tissue Tightness PT-OP-K Range of Motion Start: 03/12/20 12:59 Freq: Status: Active Protocol: Document 03/12/20 15:23 [facility] (Rec: 03/13/20 15:25 [facility] [id number]) Hip Goniometric Range of Motion Hip Left Extension 8 Right Hip ROM WFL No Extension 5 Hip ROM Limitations Hip ROM Limitations Soft Tissue Tightness Comments limited hip ROM into hip extension right greater than left Prone knee flexion limited due to quad tightness PT-OP-L Special Tests Start: 03/12/20 12:59 Freq: Status: Active Protocol: Document 03/12/20 15:23 [facility] (Rec: 03/13/20 15:25 [facility] [id number]) Special Tests Hip Special Tests Mook Test Results positive Comments iliopsoas tightness B PT-OP-Q Treatments Start: 03/12/20 12:59 Freq: Status: Active Protocol: Document 12/19/20 15:01 [facility] (Rec: 12/19/20 15:03 [facility] [email or web address]) Manual Therapy Treatment Soft Tissue Mobilization abdominal muscle fascial release Body Location abdominal muscle fascial release quad and ITB release Body Location manual quad and ITB Release Body Position Sidelying iliopsoas Body Location iliopsoas Comments release of both the iliacus and the psoas today in sidelying PT-OP-R Modalities Start: 03/14/20 17:48 Freq: Status: Active Protocol: Document 03/14/20 17:48 [facility] (Rec: 03/14/20 17:48 [facility] [email or web address]) Hot Pack/Cold Pack Treatment Cold Pack Location B anterior groin Patient Position Supine Patient Tolerance Good PT-OP-T Assessment and Plan Start: 03/12/20 12:59 Freq: Status: Active Protocol: Document 12/19/20 11:12 [facility] (Rec: 12/19/20 11:18 [facility] [id number]) Physical Therapy Assessment Assessment Summary Assessment Today was Antonio's last scheduled visit in PT. His plan is to follow up with his doctor. He has felt relief with PT however it seems to be temporary only and his symptoms flare quickly with increased activity. At this time he will be DC to a I [facility] and Physical Therapy Plan Discharge Physical Therapy Discharge Reasons Patient Request Discharge Comments pt to follow up with MD regarding continued symptoms
== END 2020-12-19 15:27 | disposition home or self-care (01) ==
LOC: PHYS 11:15
PROVIDERS: PCP Student in an Organized Health Care Education/Training Program; Referring Provider Surgery; Visit Provider Surgery
DX: R10.31 Right lower quadrant pain (principal); R10.32 Left lower quadrant pain
CPT/HCPCS: 97110; 97140; 97161

== ENCOUNTER → 2020-12-25 12:43 | Outpatient (CLI) | payer OTHER, SELFPAY ==
[2020-12-25] MEDS: COVID-19 VACC #2, MRNA(MOD) 100 MCG/0.5 ML VIAL IM (12:59)
== END ==
PROVIDERS: PCP Student in an Organized Health Care Education/Training Program; Visit Provider Internal Medicine
DX: Z23 Encounter for immunization (principal)
CPT/HCPCS: 0012A; 91301

== ENCOUNTER → 2021-01-06 10:28 | Outpatient (CLI) | payer OTHER, SELFPAY ==
[2021-01-06 12:04] LABS: COVID19 -Nasal RAPID Negative (Negative)
== END ==
PROVIDERS: PCP Student in an Organized Health Care Education/Training Program; Visit Provider Surgery
DX: Z01.812 Encounter for preprocedural laboratory examination (principal); Z20.822 Contact with and (suspected) exposure to COVID-19
CPT/HCPCS: 87635; C9803

== ENCOUNTER 2021-01-07 12:46 | Day surgery (SDC) | payer OTHER, SELFPAY ==
--- NOTE | 2021-01-07 | PATH_ITS ---
[facility] Accession Number: [id number] . 01 Material submitted: . colon - 25CM COLON POLYP . 02 Diagnosis: Colon, 25 cm Polyp, Biopsy: Hyperplastic polyp. MRV 01/13/2021 1115 Local . 02 Electronically signed: . Karoline Brennan MD, Pathologist NPI- [id number] . 01 Gross description: . The specimen is received in formalin labeled 25 cm colon polyp and consists of a 0.4 x 0.3 x 0.2 cm de jesus-pink fragment of soft tissue, which is entirely submitted in cassette A1. ([id number]) /[facility] 01/08/2021 1555 Local . 02 Pathologist provided ICD-10: K63.5 . 02 CPT . 814652 Performed at: 01 [facility] [address] [id number] MD David Owens MD Phone: [phone] Performed at: 02 [facility] [address] [place], [place] [id number] MD Karoline Brennan MD Phone: [phone]
[2021-01-07 13:11] VITALS: BMI 26.4
[2021-01-07 13:20] VITALS: BP 133/75; PULSE 76; RESP 16; TEMP 36.1; O2SAT 99
[2021-01-07] MEDS: SODIUM CHLORIDE 0.9% 1,000 ML 200 ML IV (13:25)
--- NOTE | 2021-01-07 13:41 | PM.HP.1 ---
History of Present Illness History of Present Illness Date Patient Seen: 01/07/21 Time Patient Seen: 13:41 Chief complaint: SDC Narrative: This is a 65-year-old man with history of colon polyps found on a prior sigmoidoscopy several years ago. He has never had a complete colonoscopy. He has recently noticed some darker stool. He is on famotidine for GERD. He has noticed some increased upper GI symptoms. Today we are just doing a colonoscopy. ROS: Groin pain, GERD, Thirteen system review is otherwise negative other than as mentioned below and in HPI. PE: GENERAL: Well groomed and cooperative. Appears stated age. Answers questions promptly and appropriately. Vital signs noted. HENT: Normocephalic, atraumatic. Hearing intact. EYES: Conjunctiva pink, sclera white, no periorbital swelling. CARDIOVASCULAR: Regular rate. No pedal edema. RESPIRATORY: Non-tachypneic, breathing comfortably on room air. GASTROINTESTINAL: Abdomen soft and non-distended GENITALURINARY: No flank tenderness. MUSCULOSKELETAL: Equal tone and mass bilaterally. SKIN: Warm, dry, soft, appropriate color for ethnicity. No other lesions, rashes, or wounds. NEURO: Alert and Oriented X 3. No gross sensory deficits, or cognitive issues. PSYCH: Appropriate affect and mood. Patient History Medical History Abnormal CXR (chest x-ray) (2016) Allergy to crab Axillary lymphadenopathy Bilateral inguinal hernia without obstruction or gangrene Bilateral leg pain Chronic back pain (1983) Chronic low back pain without sciatica Chronic rhinitis (2009) Cranial somatic dysfunction Fatigue Fibromyalgia (1983) GERD (gastroesophageal reflux disease) (2008) Hayfever (1987) Hemorrhoids (1999) IBS (irritable bowel syndrome) (2003) IT band syndrome Lumbar region somatic dysfunction Migraines (2003) Muscle pain, myofascial (1987) Nocturnal hypoxemia Obstructive sleep apnea syndrome (05/07/17) Pelvic somatic dysfunction Plantar fasciitis (1983) Plantar fasciitis, bilateral Precancerous lesion (2015) Pulmonary nodule (2016) Retinal detachment (2008) Sacral region somatic dysfunction Segmental and somatic dysfunction of abdomen and other regions Segmental and somatic dysfunction of rib cage Sleep apnea (2006) Somatic dysfunction of lower extremity Viral syndrome Surgical History History of colonoscopy (~2013) History of nasal surgery (2008) History of nasal surgery (2014) History of repair of retinal defect by laser photocoagulation (2008) History of shoulder surgery (2000) Family & Social History Family History Brother Age: 66 Hypothyroid Brother Age: 64 Hypothyroid Father Arthritis Stroke Rheumatoid arthritis Chronic pain Grandfather Heart disease Stroke Mother Age: 90 Hypothyroid Hypertension High cholesterol CKD (chronic kidney disease) Arthritis Grandfather Heart disease Stroke Sister Age: 60 Hypothyroid Sister Age: 55 Hypothyroid Grandmother No problems noted. Grandmother No problems noted. Social History: household members spouse Tobacco & Substance use: Smoking Status Never smoker alcohol intake current alcohol intake frequency a few times a week Substance Use Type does not use Meds Home Medications and Allergies Home Medications Medication Instructions Recorded Confirmed Type multivitamin [Multiple Vitamins] 1 tab PO DAILY #0 05/07/17 01/07/21 History fluticasone propionate 50 2 spray INTRANASAL BID PRN #9.9 09/09/18 01/07/21 Rx mcg/actuation nasal gram spray,suspension Respironics [employer] Auto BIPAP #1 ea 10/11/18 12/31/20 History cetirizine 10 mg capsule 10 mg PO DAILY 10/11/18 01/07/21 History hydrocodone 5 mg-acetaminophen 325 1 tab PO QDAY PRN #30 tab 06/06/19 01/07/21 Rx mg tablet methocarbamol 500 mg PO DAILY PRN 06/26/19 01/07/21 History rizatriptan 5 mg PO ONCE PRN 06/26/19 01/07/21 History Co-Q 10 1 tab PO BEDTIME 09/28/19 01/07/21 History ibuprofen 400 mg tablet 400 mg PO BID PRN #90 tab 09/28/19 01/07/21 Rx magnesium 200 mg tablet 200 mg PO DAILY 09/28/19 01/07/21 History famotidine 40 mg tablet 40 mg PO BEDTIME #90 tab 12/08/19 01/07/21 Rx lovastatin 20 mg tablet 20 mg PO DAILY #90 tab 12/08/19 01/07/21 Rx azelastine 205.5 mcg (0.15 %) 2 spray NASAL BID #30 ml 01/01/21 01/07/21 Rx nasal spray Allergies Allergy/AdvReac Type Severity Reaction Status Date / Time No Known Drug Allergies Allergy Verified 12/31/20 11:54 Exam Vital Signs (past 8 hours): - 01/07/21 13:20 Temperature 97.0 F L Pulse Rate 76 Respiratory Rate 16 Blood Pressure 133/75 Pulse Oximetry 99 Oxygen Delivery Method Room Air Assessment & Plan Assessment and plan (1) Personal history of colonic polyps: Status: Acute Assessment & Plan narrative: Risks and benefits of screening colonoscopy and possible polypectomy were discussed with the patient including risk of bleeding, perforation, need for additional procedures, risks of anesthesia. The patient desires to proceed with the colonoscopy procedure. COVID-19 COVID-19 status: Negative Result date/Date tested (Pos, Neg/Pending): 01/06/21 Time Spent With Patient Time with patient: 15-24 minutes Quality VTE Deep Vein Thrombosis/Pulmonary Embolism Present on Admission: No
--- NOTE | 2021-01-07 13:42 | P.OP.ENDO_ITS ---
Operative Date/Time/Diagnoses Date of procedure: 01/07/21 Time of procedure: 13:42 Pre-op diagnosis: Personal history colon polyps Post-op diagnosis: other (Single adenomatous appearing polyp at 25 cm) Procedure & Clinicians Study performed: Colonoscopy Procedural sedation performed by the endoscopist Polypectomy with Jumbo forceps Same procedure as scheduled: Yes Indications: History of colon polyps Surgeon: Sara Carranza Procedure Notes SCOAP/Timeout: Performed Procedure in detail: The patient was brought to the room and placed in left lateral decubitus position with all bony prominences padded. A time-out was per formed and then the patient was given procedural sedation starting with 4 mg of Versed and 1 mcg of fentanyl. A total of 6 mg of Versed and 150 micro g of fentanyl were given for the entire procedure. Vitals were monitored throughout the procedure and remained stable. Once adequately sedated, the procedure was begun. A rectal exam was performed revealing [no abnormalities]. The colonoscope was then introduced to the rectum and advanced to the cecum in the usual fashion. The cecum was identified by the appendiceal orifice, the mucosal tri-fold, and the ileocecal valve. The scope was then retracted while rotating side to side and examining each mucosal fold. A small polyp was found at 25 cm and removed with Jumbo forceps. [ At the conclusion of the procedure retroflexion was performed andsmall grade 1-2 internal hemorrhoids without stigmata of bleeding were seen]. The scope was then withdrawn from the rectum the procedure was concluded. The patient tolerated the procedure well and was transferred to the PACU in stable condition. Scope withdrawal time: 9 Sedation minutes: 25 Findings: polyp Specimen(s): other (Single polyp from 25 cm in the right) Complications: none Impression: Single adenomatous/precancerous appearing polyp Post-procedure Recommendations: Colonscopy in 10 years (Along as pathology is low-grade) Follow up: as needed Disposition: PACU
[2021-01-07] MEDS: MIDAZOLAM 5 MG/5 ML VIAL IV (13:53)
[2021-01-07] MEDS: fentaNYL 250 MCG/5 ML INJ IV (13:53)
[2021-01-07 14:15] VITALS: BP 109/71; PULSE 84; RESP 16; TEMP 36.4; O2SAT 98
[2021-01-07 14:20] VITALS: BP 114/72; PULSE 78; RESP 16; O2SAT 97
[2021-01-07 14:25] VITALS: BP 117/77; PULSE 80; RESP 16; TEMP 36.2; O2SAT 98
[2021-01-07 14:39] VITALS: BP 116/77; PULSE 78; RESP 16; O2SAT 96
== END 2021-01-07 14:52 | disposition home or self-care (01) ==
PROVIDERS: PCP Student in an Organized Health Care Education/Training Program; Referring Provider Student in an Organized Health Care Education/Training Program; Visit Provider Surgery
PROC: 0DJD8ZZ Inspection of Lower Intestinal Tract, Via Natural or Artificial Opening Endoscopic (ICD-10-PCS; CPT 45378; principal; 2021-01-07 13:45)
DX: Z12.11 Encounter for screening for malignant neoplasm of colon (principal); Z86.010 Personal history of colon polyps; K21.9 Gastro-esophageal reflux disease without esophagitis; K64.0 First degree hemorrhoids; K63.5 Polyp of colon
CPT/HCPCS: 45380; 99152; J2250; J3010

== ENCOUNTER → 2021-08-28 13:26 | Outpatient (CLI) | payer OTHER, SELFPAY ==
--- NOTE | 2021-08-28 13:28 | DI.MRI.S_ITS ---
PROCEDURE: MR LUMBAR SPINE WO CON INDICATIONS: persistent neuropathic leg pain TECHNIQUE: Noncontrast sagittal T1 spin echo and T2 fast echo, sagittal STIR, axial T1 and T2 fast spin echo through the lumbar spine. In cases with scoliosis, additional coronal T2 fast spin echo may be performed. COMPARISON: Outside Facility, RG, CT ABDOMEN/PELVIS WITH CONTRAST, 11/29/2016, 10:08. FINDINGS: Image quality: Excellent. Alignment and Curvature: 5 lumbar type vertebral bodies are present by plain film. Bone Marrow: Marrow is of normal overall signal. No acute vertebral body compression fractures. Mild reactive signal throughout the endplates of the lumbar and lower thoracic spine. Spinal Cord: Conus medullaris terminates at the T12-L1 disc space level. Visualized cord demonstrates normal signal and size. Paraspinous Soft Tissues: No paravertebral masses. T12-L1: Moderate disc height loss and desiccation. No significant canal, or foraminal stenosis. L1-L2: Moderate disc height loss and desiccation. Mild diffuse disc bulge. Mild facet and ligamentum flavum hypertrophy. Mild canal stenosis. Mild bilateral foraminal stenosis. L2-L3: Mild disc desiccation and diffuse disc bulge. Mild facet and ligamentum flavum hypertrophy. Mild canal stenosis. Mild bilateral foraminal stenosis. L3-L4: Mild disc desiccation and diffuse disc bulge. Mild facet and ligamentum flavum hypertrophy. Mild canal stenosis. Mild bilateral foraminal stenosis. L4-L5: Mild disc height loss and desiccation. Mild diffuse disc bulge. Mild facet and ligamentum flavum hypertrophy. Mild canal stenosis. Mild bilateral foraminal stenosis. L5-S1: Mild bilateral facet hypertrophy. No significant canal, or foraminal stenosis. IMPRESSION: 1. Multilevel degenerative disc and facet disease, as well as ligamentum flavum hypertrophy and epidural lipomatosis. 2. Mild multilevel canal and foraminal stenoses. No neural impingement. Dictated by: Adal Sanabria M.D. on 08/28/2021 at 15:07 Approved by: Adal Sanabria M.D. on 08/28/2021 at 15:09
--- NOTE | 2021-08-28 13:28 | DI.MRI.S_ITS ---
PROCEDURE: MR PELVIS WO CON INDICATIONS: persistent neuropathic leg pain TECHNIQUE: Noncontrast coronal T1 and STIR, axial T1 and T2 with fat saturation performed through the pelvis. COMPARISON: None. FINDINGS: Image quality: Excellent. Lumbosacral plexus: Superior to the piriformis muscles, the pre-plexal structures appear normal, including the lumbosacral trunk and S1 root. Just anterior to the piriformis muscles, the sacral plexus demonstrates no definite mass lesions or abnormal signal. Inferior to the piriformis muscles, the sciatic nerves appear grossly normal. Soft tissues: The piriformis muscles appear symmetric in size. No presacral masses. Rectum appears normal in caliber and wall thickness. No pathologic free pelvic fluid. No visualized adenopathy by size criteria. Bones: Bone marrow demonstrates mild heterogeneity suggestive of matter prior marrow reconversion. No bone contusions or fractures. No suspicious intraosseous mass lesions. There is moderate facet arthropathy within the visualized lower lumbar spine. IMPRESSION: 1. No definite abnormal mass lesions or signal along the course of the lumbosacral plexus. 2. Moderate facet arthropathy within the visualized lower lumbar spine. Dictated by: David Freire M.D. on 08/28/2021 at 17:02 Approved by: David Freire M.D. on 08/28/2021 at 17:07
== END ==
PROVIDERS: PCP Student in an Organized Health Care Education/Training Program; Referring Provider Student in an Organized Health Care Education/Training Program; Visit Provider Student in an Organized Health Care Education/Training Program
DX: M48.061 Spinal stenosis, lumbar region without neurogenic claudication (principal); M51.36 Other intervertebral disc degeneration, lumbar region; M79.2 Neuralgia and neuritis, unspecified; M79.604 Pain in right leg; M79.605 Pain in left leg; M47.816 Spondylosis without myelopathy or radiculopathy, lumbar region; R10.31 Right lower quadrant pain; R10.32 Left lower quadrant pain; T81.9XXA Unspecified complication of procedure, initial encounter
CPT/HCPCS: 72148; 72195

== ENCOUNTER → 2021-09-09 10:16 | Outpatient (CLI) | payer OTHER, SELFPAY ==
[2021-09-09 11:18] LABS: Erythrocyte Sedimentation Rate 5 MM/HR (0-15)
[2021-09-09 11:25] LABS: BUN Creatinine Ratio 21.3 (6-22); Blood Urea Nitrogen 16 mg/dL (9-20); C-Reactive Protein Quant < 0.5 mg/dL (<1.0); Estimated Glomerular Filt Rate > 60.0 mL/min (>60)
[2021-09-11 17:51] LABS: ANA Screen, IFA Positive (.)
[2021-09-14 11:21] LABS: MuSK Antibodies <1.0 U/mL (.)
[2021-09-16 13:59] LABS: Acetylcholine Blocking AB 14 % (0-25); Acetylcholine Receptor Bind AB 0.23 nmol/L (0.00-0.24)
== END ==
PROVIDERS: PCP Student in an Organized Health Care Education/Training Program; Referring Provider Student in an Organized Health Care Education/Training Program; Visit Provider Student in an Organized Health Care Education/Training Program
DX: M99.06 Segmental and somatic dysfunction of lower extremity (principal); M79.2 Neuralgia and neuritis, unspecified; M79.7 Fibromyalgia; Z79.899 Other long term (current) drug therapy
CPT/HCPCS: 36415; 82565; 83519; 84520; 85651; 86038; 86140

== ENCOUNTER → 2021-12-30 09:42 | Outpatient (CLI) | payer OTHER, SELFPAY ==
[2021-12-30 11:58] LABS: Add Manual Diff / Slide Review NO; Basophils Absolute Auto 0 /uL (0-100); Basophils Percent Auto 0.6 % (0-2); Eosinophils Absolute Auto 100 /uL (0-450); Eosinophils Percent Auto 1.3 % (2-4); Hematocrit 40.2 % (41-53); Hemoglobin 14.1 g/dL (13.5-17.5); Lymphocytes Absolute Auto 800 /uL (1100-4500); Lymphocytes Percent Auto 18.1 % (25-40); Mean Corpuscular Hemoglobin 34.2 PG (26-34); Mean Corpuscular Volume 97.6 fL (80-100); Monocytes Absolute Auto 800 /uL (0-900); Monocytes Percent Auto 16.4 % (3-14); Neutrophils Absolute Auto 2900 /uL (1500-7000); Neutrophils Percent Auto 63.6 % (50-75); Platelet Count 250 X10^3/uL (150-400); Red Blood Cell Count 4.12 X10^6/uL (4.5-5.9); Red Cell Distribution Width 12.8 % (11.6-14.8); White Blood Cell Count 4.6 X10^3/uL (4.5-11.0)
[2021-12-31 07:27] LABS: Alanine Aminotransferase 21 IU/L (<50); Albumin 4.3 g/dL (3.5-5.0); Albumin Globulin Ratio 1.4 (1.0-2.8); Alkaline Phosphatase 37 U/L (38-126); Aspartate Aminotransferase 28 IU/L (17-59); BUN Creatinine Ratio 17.9 (6-22); Bilirubin Total 0.7 mg/dL (0.2-1.3); Blood Urea Nitrogen 14 mg/dL (9-20); Calcium 9.4 mg/dL (8.4-10.2); Carbon Dioxide 29 mmol/L (22-32); Chloride 102 mmol/L (98-107); Estimated Glomerular Filt Rate > 60 mL/min (>60); Glucose 135 mg/dL (80-110); HEMOLYSIS < 15 (0-50); Lipase 93 U/L (23-300); Potassium 3.9 mmol/L (3.4-5.1); Sodium 139 mmol/L (137-145); Total Protein 7.3 g/dL (6.3-8.2)
[2021-12-31 08:02] LABS: Prostate Specific Antigen Scrn 1.14 ng/mL (0.1-4.0)
[2021-12-31 20:38] LABS: Tissue Transglutaminase IgA <2 U/mL (0-3); Tissue Transglutaminase IgG <2 U/mL (0-5)
[2022-01-01 16:51] LABS: Calprotectin, Stool 36 ug/g (0-120)
[2022-01-08 11:32] LABS: Clostridium Difficile Tox PCR Negative for C. diff (Negative)
== END ==
PROVIDERS: PCP Student in an Organized Health Care Education/Training Program; Referring Provider Student in an Organized Health Care Education/Training Program; Visit Provider Student in an Organized Health Care Education/Training Program
DX: Z12.5 Encounter for screening for malignant neoplasm of prostate (principal); R19.7 Diarrhea, unspecified
CPT/HCPCS: 36415; 80053; 83516; 83690; 83993; 85025; 87045; 87329; 87493; 87899; G0103

== ENCOUNTER → 2022-01-12 16:52 | Outpatient (CLI) | payer OTHER, SELFPAY ==
[2022-01-12 18:41] LABS: Thyroid Stimulating Hormone 2.71 uIU/mL (0.47-4.68)
== END ==
PROVIDERS: PCP Student in an Organized Health Care Education/Training Program; Referring Provider Physician Assistant; Visit Provider Physician Assistant
DX: K21.9 Gastro-esophageal reflux disease without esophagitis (principal); R13.10 Dysphagia, unspecified; R19.7 Diarrhea, unspecified; R63.4 Abnormal weight loss
CPT/HCPCS: 36415; 84443

== ENCOUNTER → 2022-01-13 09:26 | Outpatient (CLI) | payer OTHER, SELFPAY ==
[2022-01-20 01:13] LABS: Pancreatic Elastase, Fecal 271 (>200)
== END ==
PROVIDERS: PCP Student in an Organized Health Care Education/Training Program; Referring Provider Physician Assistant; Visit Provider Physician Assistant
DX: K21.9 Gastro-esophageal reflux disease without esophagitis (principal); R13.10 Dysphagia, unspecified; R19.7 Diarrhea, unspecified; R63.4 Abnormal weight loss
CPT/HCPCS: 82656; 87177

== ENCOUNTER → 2022-01-16 09:44 | Outpatient (CLI) | payer OTHER, SELFPAY ==
--- NOTE | 2022-01-16 10:30 | DI.CT.S_ITS ---
PROCEDURE: CT ABDOMEN PELVIS W CON INDICATIONS: GERD/DYSPHAGIA/DIARRHEA/WEIGHT LOSS TECHNIQUE: After the administration of oral and intravenous contrast, axial sections were acquired from the lung bases to the pubic symphysis. Coronal and sagittal reformats were performed. For radiation dose reduction, the following was used: automated exposure control, adjustment of mA and/or kV according to patient size. COMPARISON:[facility], CT, CT ABDOMEN PELVIS WO CON, 10/17/2019, 9:06. [facility], CT, CT ABDOMEN PELVIS W CON, 06/08/2019, 8:39. FINDINGS: Image quality: Excellent. Lung bases: Unchanged size and appearance of small subsolid pulmonary nodule, subpleural left lower lobe, image 5/3. This is a benign lesion. Otherwise unremarkable. Heart: No significant findings. ABDOMEN: Liver: Mild hepatic steatosis. Otherwise unremarkable. Gallbladder: Unremarkable. Biliary ducts: Unremarkable. Pancreas: Unremarkable. Spleen: Unremarkable. Adrenal Glands: Unremarkable. Kidneys and Ureters: Unremarkable. Stomach and Bowel: Stomach, small bowel loops, and colon are unremarkable. Peritoneum: No abnormal intraperitoneal fluid. No free air. Ventral Wall: No hernia. Abdominal Nodes: No retroperitoneal or mesenteric adenopathy by size criteria. Vessels: Aorta and inferior vena cava are normal in size. PELVIS: Pelvic Organs: Unremarkable. Bladder: Unremarkable. Pelvic Nodes: No enlarged lymph nodes. Miscellaneous: No inguinal hernias are seen. It is noted that bilateral inguinal hernias were present on the previous study. Bones: Unremarkable. IMPRESSION: Mild hepatic steatosis. Otherwise negative study. Dictated by: Erik Tamayo M.D. on 01/16/2022 at 13:25 Approved by: Erik Tamayo M.D. on 01/16/2022 at 13:29
== END ==
PROVIDERS: PCP Student in an Organized Health Care Education/Training Program; Referring Provider Physician Assistant; Visit Provider Physician Assistant
DX: R19.7 Diarrhea, unspecified (principal); R13.10 Dysphagia, unspecified; R63.4 Abnormal weight loss; K21.9 Gastro-esophageal reflux disease without esophagitis; K76.0 Fatty (change of) liver, not elsewhere classified
CPT/HCPCS: 74177

== ENCOUNTER → 2022-04-02 15:21 | Outpatient (CLI) | payer OTHER, SELFPAY ==
[2022-04-02 16:53] LABS: Add Manual Diff / Slide Review NO; Basophils Absolute Auto 0 /uL (0-100); Basophils Percent Auto 0.4 % (0-2); Eosinophils Absolute Auto 100 /uL (0-450); Eosinophils Percent Auto 2.1 % (2-4); Hematocrit 39.2 % (41-53); Hemoglobin 13.7 g/dL (13.5-17.5); Lymphocytes Absolute Auto 1300 /uL (1100-4500); Lymphocytes Percent Auto 21.6 % (25-40); Mean Corpuscular Hemoglobin 33.7 PG (26-34); Mean Corpuscular Volume 96.2 fL (80-100); Monocytes Absolute Auto 900 /uL (0-900); Monocytes Percent Auto 14.4 % (3-14); Neutrophils Absolute Auto 3700 /uL (1500-7000); Neutrophils Percent Auto 61.5 % (50-75); Platelet Count 245 X10^3/uL (150-400); Red Blood Cell Count 4.07 X10^6/uL (4.5-5.9)
[2022-04-02 17:14] LABS: Alanine Aminotransferase 26 IU/L (<50); Albumin 4.4 g/dL (3.5-5.0); Albumin Globulin Ratio 1.4 (1.0-2.8); Alkaline Phosphatase 42 U/L (38-126); Aspartate Aminotransferase 44 IU/L (17-59); BUN Creatinine Ratio 20.3 (6-22); Bilirubin Total 0.5 mg/dL (0.2-1.3); Blood Urea Nitrogen 15 mg/dL (9-20); Calcium 8.9 mg/dL (8.4-10.2); Carbon Dioxide 25 mmol/L (22-32); Chloride 100 mmol/L (98-107); Estimated Glomerular Filt Rate > 60 mL/min (>60); Globulin 3.1 g/dL (1.7-4.1); Glucose 107 mg/dL (80-110); HEMOLYSIS < 15 (0-50); Potassium 3.7 mmol/L (3.4-5.1); Sodium 135 mmol/L (137-145); Total Protein 7.5 g/dL (6.3-8.2)
[2022-04-02 17:44] LABS: TSH w/ Reflex to FT4 1.99 uIU/mL (0.47-4.68)
[2022-04-02 18:05] LABS: Hep C Virus Ab w/Reflex Quant NEGATIVE s/c (NEGATIVE)
[2022-04-02 18:06] LABS: HIV 1 & 2 Ab/Ag 4th Gen Combo NEGATIVE (NEGATIVE)
== END ==
PROVIDERS: PCP Student in an Organized Health Care Education/Training Program; Referring Provider Physician Assistant; Visit Provider Physician Assistant
DX: R19.7 Diarrhea, unspecified (principal); B37.81 Candidal esophagitis; K21.9 Gastro-esophageal reflux disease without esophagitis
CPT/HCPCS: 36415; 80053; 83735; 84443; 85025; 86803; 87389

== ENCOUNTER → 2022-04-03 10:48 | Outpatient (CLI) | payer OTHER, SELFPAY ==
[2022-04-07 17:14] LABS: Calprotectin, Stool 104 ug/g (0-120)
[2022-04-09 12:45] LABS: Pancreatic Elastase, Fecal 138 (>200)
== END ==
PROVIDERS: PCP Student in an Organized Health Care Education/Training Program; Referring Provider Physician Assistant; Visit Provider Physician Assistant
DX: R19.7 Diarrhea, unspecified (principal); B37.81 Candidal esophagitis; K21.9 Gastro-esophageal reflux disease without esophagitis
CPT/HCPCS: 82656; 83993; 87045; 87177; 87329; 87493; 87899

== ENCOUNTER → 2022-06-09 14:35 | Outpatient (CLI) | payer OTHER, SELFPAY ==
[2022-06-09 16:29] LABS: Add Manual Diff / Slide Review NO; Basophils Absolute Auto 0 /uL (0-100); Basophils Percent Auto 0.5 % (0-2); Eosinophils Absolute Auto 100 /uL (0-450); Eosinophils Percent Auto 2.1 % (2-4); Hematocrit 39.4 % (41-53); Hemoglobin 13.6 g/dL (13.5-17.5); Lymphocytes Absolute Auto 1200 /uL (1100-4500); Mean Corpuscular HGB Conc 34.5 % (30-36); Mean Corpuscular Hemoglobin 33.4 PG (26-34); Mean Corpuscular Volume 96.7 fL (80-100); Monocytes Absolute Auto 800 /uL (0-900); Monocytes Percent Auto 13.6 % (3-14); Neutrophils Absolute Auto 3700 /uL (1500-7000); Neutrophils Percent Auto 63.8 % (50-75); Platelet Count 249 X10^3/uL (150-400); Red Blood Cell Count 4.08 X10^6/uL (4.5-5.9); Red Cell Distribution Width 12.8 % (11.6-14.8); White Blood Cell Count 5.8 X10^3/uL (4.5-11.0)
[2022-06-09 16:46] LABS: Alanine Aminotransferase 22 IU/L (<50); Albumin 4.5 g/dL (3.5-5.0); Albumin Globulin Ratio 1.3 (1.0-2.8); Alkaline Phosphatase 49 U/L (38-126); Aspartate Aminotransferase 29 IU/L (17-59); BUN Creatinine Ratio 19.7 (6-22); Bilirubin Total 0.5 mg/dL (0.2-1.3); Blood Urea Nitrogen 14 mg/dL (9-20); Calcium 9.1 mg/dL (8.4-10.2); Carbon Dioxide 28 mmol/L (22-32); Chloride 100 mmol/L (98-107); Estimated Glomerular Filt Rate > 60 mL/min (>60); Globulin 3.6 g/dL (1.7-4.1); Glucose 120 mg/dL (80-110); HEMOLYSIS 16 (0-50); Magnesium 1.9 mg/dL (1.6-2.3); Potassium 3.6 mmol/L (3.4-5.1); Sodium 137 mmol/L (137-145); Total Protein 8.1 g/dL (6.3-8.2)
[2022-06-09 17:19] LABS: TSH w/ Reflex to FT4 2.12 uIU/mL (0.47-4.68)
[2022-06-10 23:24] LABS: Clostridium Difficile Tox PCR Negative for C. diff (Negative)
[2022-06-11 16:51] LABS: HIV 1 & 2 Ab/Ag 4th Gen Combo NEGATIVE (NEGATIVE)
[2022-06-11 17:23] LABS: Hep C Virus Ab w/Reflex Quant NEGATIVE s/c (NEGATIVE)
[2022-06-13 14:43] LABS: Calprotectin, Stool 79 ug/g (0-120)
[2022-06-13 23:25] LABS: Pancreatic Elastase, Fecal 379 (>200)
== END ==
PROVIDERS: PCP Student in an Organized Health Care Education/Training Program; Referring Provider Physician Assistant; Visit Provider Physician Assistant
DX: R19.7 Diarrhea, unspecified (principal); B37.81 Candidal esophagitis; K21.9 Gastro-esophageal reflux disease without esophagitis
CPT/HCPCS: 36415; 80053; 82656; 83735; 83993; 84443; 85025; 86803; 87045; 87177; 87329; 87389; 87493; 87899

== ENCOUNTER → 2023-06-29 06:49 | Outpatient (CLI) | payer OTHER, SELFPAY ==
[2023-06-29 08:19] LABS: Add Manual Diff / Slide Review NO; Basophils Absolute Auto 0 /uL (0-100); Basophils Percent Auto 0.7 % (0-2); Eosinophils Absolute Auto 200 /uL (0-450); Eosinophils Percent Auto 4.6 % (2-4); Hematocrit 41.3 % (41-53); Hemoglobin 14.1 g/dL (13.5-17.5); Lymphocytes Absolute Auto 1500 /uL (1100-4500); Lymphocytes Percent Auto 30.7 % (25-40); Mean Corpuscular HGB Conc 34.2 % (30-36); Mean Corpuscular Hemoglobin 32.9 PG (26-34); Mean Corpuscular Volume 96.1 fL (80-100); Monocytes Absolute Auto 700 /uL (0-900); Monocytes Percent Auto 14.8 % (3-14); Neutrophils Absolute Auto 2400 /uL (1500-7000); Neutrophils Percent Auto 49.2 % (50-75); Platelet Count 263 X10^3/uL (150-400); Red Cell Distribution Width 12.7 % (11.6-14.8); White Blood Cell Count 4.9 X10^3/uL (4.5-11.0)
[2023-06-29 08:23] LABS: Hemoglobin A1C% w Est Avg Glu 5.9 % (4.0-6.0)
[2023-06-29 08:29] LABS: Alanine Aminotransferase 19 IU/L (<50); Albumin 4.3 g/dL (3.5-5.0); Albumin Globulin Ratio 1.3 (1.0-2.8); Alkaline Phosphatase 50 U/L (38-126); Aspartate Aminotransferase 23 IU/L (17-59); Bilirubin Total 0.4 mg/dL (0.2-1.3); Blood Urea Nitrogen 18 mg/dL (9-20); Calcium 9.5 mg/dL (8.4-10.2); Carbon Dioxide 28 mmol/L (22-32); Chloride 100 mmol/L (98-107); Cholesterol 188 mg/dL (140-199); Estimated Glomerular Filt Rate > 60 mL/min (>60); Globulin 3.2 g/dL (1.7-4.1); Glucose 95 mg/dL (80-110); HDL Cholesterol 41 mg/dL (40-60); HEMOLYSIS < 15 (0-50); LDL Cholesterol Calculated 110 mg/dL (<100); Potassium 4.1 mmol/L (3.4-5.1); Sodium 137 mmol/L (137-145); Total Protein 7.5 g/dL (6.3-8.2); Triglycerides 183 mg/dL (35-150)
[2023-06-29 09:00] LABS: Prostate Specific Antigen Scrn 1.46 ng/mL (0.1-4.0)
[2023-07-06 15:47] LABS: 18 kD IgG Band Absent (.); 23 kD IgG Band Absent (.); 28 kD IgG Band Absent (.); 30 kD IgG Band Absent (.); 39 kD IgG Band Absent (.); 41 kD IgG Bands Absent (.); 45 kD IgG Band Absent (.); 58 kD IgG Band Absent (.); 66 kD IgG Band Absent (.); IgG P93 AB Absent (.); IgM P23 AB Absent (.); IgM P39 AB Absent (.); IgM P41 AB Absent (.); Lyme IgG Line Blot Interpretat Negative (.); Lyme IgM Line Blot Interpretat Negative (.)
== END ==
PROVIDERS: PCP Family Medicine; Referring Provider Family Medicine; Visit Provider Family Medicine
DX: R73.01 Impaired fasting glucose (principal); E78.2 Mixed hyperlipidemia; Z12.5 Encounter for screening for malignant neoplasm of prostate; R20.0 Anesthesia of skin; A69.20 Lyme disease, unspecified; Z00.00 Encounter for general adult medical examination without abnormal findings
CPT/HCPCS: 36415; 80053; 80061; 83036; 85025; 86617; G0103

== ENCOUNTER → 2023-09-22 13:18 | Outpatient (CLI) | payer OTHER, SELFPAY ==
--- NOTE | 2023-09-22 13:19 | DI.RAD.S_ITS ---
PROCEDURE: XR LUMBAR SPINE MIN 4V INDICATIONS: BILATERAL LEG PAIN TECHNIQUE: 5 views of the lumbar spine were acquired, including bilateral oblique views. COMPARISON: None. FINDINGS: Bones: 5 nonrib-bearing vertebrae are present. There is normal bony alignment. No vertebral body compression fractures. No suspicious bony lesions. Disc space narrowing and hypertrophic facet joints noted throughout the exam. Oblique images are unremarkable. Soft tissues: Overlying bowel gas pattern is normal. No suspicious soft tissue calcifications. Oblique images: No pars defects. IMPRESSION: Degenerative disc disease and arthropathy Approved by: Rocael Starr M.D. on 09/22/2023 at 14:37
== END ==
PROVIDERS: PCP Family Medicine; Referring Provider Physical Medicine & Rehabilitation; Visit Provider Physical Medicine & Rehabilitation
DX: M47.816 Spondylosis without myelopathy or radiculopathy, lumbar region (principal); M54.50 Low back pain, unspecified; M79.604 Pain in right leg; M51.36 Other intervertebral disc degeneration, lumbar region; M79.605 Pain in left leg; G89.29 Other chronic pain
CPT/HCPCS: 72110

== ENCOUNTER → 2023-10-21 14:19 | Outpatient (CLI) | payer OTHER, SELFPAY | LOC: PHYS 14:20 | PROVIDERS: Family Provider Family Medicine; PCP Family Medicine; Referring Provider Physical Medicine & Rehabilitation; Visit Provider Physical Medicine & Rehabilitation | DX: G58.8 Other specified mononeuropathies (principal); G57.23 Lesion of femoral nerve, bilateral lower limbs | CPT/HCPCS: 95886; 95910 ==

== ENCOUNTER → 2023-10-25 07:33 | Outpatient (CLI) | payer OTHER, SELFPAY ==
[2023-10-25 08:14] LABS: Hemoglobin A1C% w Est Avg Glu 5.8 % (4.0-6.0)
[2023-10-25 08:24] LABS: Cholesterol 150 mg/dL (140-199); HDL Cholesterol 43 mg/dL (40-60); LDL Cholesterol Calculated 83 mg/dL (<100); Triglycerides 118 mg/dL (35-150)
== END ==
PROVIDERS: Family Provider Family Medicine; PCP Family Medicine; Referring Provider Family Medicine; Visit Provider Family Medicine
DX: R73.01 Impaired fasting glucose (principal); E78.2 Mixed hyperlipidemia
CPT/HCPCS: 36415; 80061; 83036

== ENCOUNTER → 2024-03-04 07:34 | Outpatient (CLI) | payer OTHER, SELFPAY | PROVIDERS: Family Provider Family Medicine; PCP Family Medicine; Visit Provider Student in an Organized Health Care Education/Training Program | DX: J02.9 Acute pharyngitis, unspecified (principal) | CPT/HCPCS: 87070 ==

== ENCOUNTER → 2024-03-04 08:05 | Outpatient (CLI) | payer OTHER, SELFPAY ==
--- NOTE | 2024-03-04 08:08 | DI.RAD.S_ITS ---
PROCEDURE: XR CHEST 2V INDICATIONS: Covid +/pt concerned for toxoplasmosis TECHNIQUE: 2 views of the chest were acquired. COMPARISON: None. FINDINGS: Surgical changes and devices: None. Lungs and pleura: No consolidation or pleural effusion Mediastinum: Normal heart size Bones and chest wall: No suspicious bony abnormalities. Soft tissues appear unremarkable. IMPRESSION: No acute radiographic abnormality. Dictated by: Nba Infante M.D. on 03/04/2024 at 9:00 Approved by: Nba Infante M.D. on 03/04/2024 at 9:01
[2024-03-05 14:07] LABS: Toxoplasma gohndii IgG <3.0 IU/mL (0.0-7.1); Toxoplasma gondii IgM <3.0 AU/mL (0.0-7.9)
== END ==
PROVIDERS: Family Provider Family Medicine; PCP Family Medicine; Referring Provider Student in an Organized Health Care Education/Training Program; Visit Provider Student in an Organized Health Care Education/Training Program
DX: U07.1 COVID-19 (principal); R05.9 Cough, unspecified; T75.89XA Other specified effects of external causes, initial encounter; R52 Pain, unspecified
CPT/HCPCS: 71046; 86777; 86778; 87070; 87147

== ENCOUNTER → 2024-04-25 13:56 | Outpatient (CLI) | payer OTHER, SELFPAY ==
[2024-04-25 15:43] LABS: Hemoglobin A1C% w Est Avg Glu 5.6 % (4.0-6.0)
== END ==
LOC: LAB 13:56
PROVIDERS: Family Provider Family Medicine; PCP Family Medicine; Referring Provider Family Medicine; Visit Provider Family Medicine
DX: R73.01 Impaired fasting glucose (principal)
CPT/HCPCS: 36415; 83036

== ENCOUNTER → 2024-06-13 16:23 | Outpatient (CLI) | payer OTHER, SELFPAY ==
[2024-06-13 17:07] LABS: Add Manual Diff / Slide Review NO; Basophils Absolute Auto 0 /uL (0-100); Basophils Percent Auto 0.5 % (0-2); Eosinophils Absolute Auto 300 /uL (0-450); Eosinophils Percent Auto 5.4 % (2-4); Hematocrit 40.8 % (41-53); Hemoglobin 14.2 g/dL (13.5-17.5); Lymphocytes Absolute Auto 1500 /uL (1100-4500); Mean Corpuscular HGB Conc 34.8 % (30-36); Mean Corpuscular Hemoglobin 33.9 PG (26-34); Mean Corpuscular Volume 97.4 fL (80-100); Monocytes Absolute Auto 900 /uL (0-900); Neutrophils Absolute Auto 3600 /uL (1500-7000); Neutrophils Percent Auto 56.1 % (50-75); Platelet Count 235 X10^3/uL (150-400); Red Blood Cell Count 4.18 X10^6/uL (4.5-5.9); Red Cell Distribution Width 12.7 % (11.6-14.8); White Blood Cell Count 6.4 X10^3/uL (4.5-11.0)
[2024-06-13 17:59] LABS: Alanine Aminotransferase 23 IU/L (<50); Albumin 4.6 g/dL (3.5-5.0); Albumin Globulin Ratio 1.4 (1.0-2.8); Alkaline Phosphatase 49 U/L (38-126); Aspartate Aminotransferase 29 IU/L (17-59); BUN Creatinine Ratio 22.4 (6-22); Bilirubin Total 0.6 mg/dL (0.2-1.3); Blood Urea Nitrogen 17 mg/dL (9-20); Calcium 9.5 mg/dL (8.4-10.2); Carbon Dioxide 29 mmol/L (22-32); Chloride 99 mmol/L (98-107); Estimated Glomerular Filt Rate > 60 mL/min (>60); Globulin 3.2 g/dL (1.7-4.1); Glucose 108 mg/dL (80-110); HEMOLYSIS < 15 (0-50); Potassium 3.7 mmol/L (3.4-5.1); Sodium 135 mmol/L (137-145); Total Protein 7.8 g/dL (6.3-8.2)
== END ==
PROVIDERS: Family Provider Family Medicine; PCP Family Medicine; Referring Provider Family Medicine; Visit Provider Family Medicine
DX: R10.9 Unspecified abdominal pain (principal); K59.00 Constipation, unspecified
CPT/HCPCS: 80053; 85025

== ENCOUNTER → 2024-06-15 15:16 | Outpatient (CLI) | payer OTHER, SELFPAY ==
--- NOTE | 2024-06-15 15:17 | DI.CT.S_ITS ---
PROCEDURE: CT ABDOMEN PELVIS W CON INDICATIONS: abd pain, wt loss TECHNIQUE: After the administration of intravenous contrast, axial sections acquired from the lung bases to the pubic symphysis. Coronal and sagittal reformats were performed. For radiation dose reduction, the following was used: automated exposure control, adjustment of mA and/or kV according to patient size. COMPARISON: [facility], CT, CT ABDOMEN PELVIS W CON, 01/16/2022, 10:41. FINDINGS: Image quality: Diagnostic. Lower Chest: No significant findings. ABDOMEN: Liver: No solid mass. Gallbladder: No radiopaque gallstones or wall thickening. Biliary ducts: No biliary dilation. Pancreas: No ductal dilation. Spleen: Size is within normal limits. Adrenal Glands: No adrenal nodules. Kidneys and Ureters: No hydronephrosis. No solid mass. No complex renal cystic lesion which requires follow up. Stomach and Bowel: Normal colonic caliber, without significant wall thickening. Peritoneum: No abnormal intraperitoneal fluid. No free air. Ventral Wall: No significant ventral hernia. Abdominal Nodes: No retroperitoneal or mesenteric adenopathy by size criteria. Vessels: Aorta and inferior vena cava are normal in size. PELVIS: Pelvic Organs: Unremarkable. Bladder: No bladder wall thickening, accounting for underdistention. Pelvic Nodes: No enlarged lymph nodes. Miscellaneous: No inguinal hernias are seen. Bones: No aggressive osseous abnormality. IMPRESSION: No acute abdominopelvic process. Approved by: Bernie Weiss M.D.,Ph.D. on 06/16/2024 at 3:18
== END ==
PROVIDERS: Family Provider Family Medicine; PCP Family Medicine; Referring Provider Family Medicine; Visit Provider Family Medicine
DX: R63.4 Abnormal weight loss (principal); R10.9 Unspecified abdominal pain; K59.00 Constipation, unspecified
CPT/HCPCS: 74177; Q9967

== ENCOUNTER → 2024-11-22 11:51 | Outpatient (CLI) | payer OTHER, SELFPAY ==
--- NOTE | 2024-11-22 11:54 | DI.RAD.S_ITS ---
PROCEDURE: XR HIP W PEL IF DONE BILAT 2V INDICATIONS: bilat hip pain TECHNIQUE: AP pelvis with lateral view(s) of the bilateral hip(s). COMPARISON: None. FINDINGS: Bones: No fractures or dislocations. 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 Pelvic ring appears intact. No suspicious bony lesions. Soft tissues: The visualized bowel gas pattern is normal. No suspicious soft tissue calcifications. IMPRESSION: Degenerative change of the bilateral hips without evidence of acute bony abnormality. Dictated by: Tono Lee M.D. on 11/23/2024 at 4:23 Approved by: Tono Lee M.D. on 11/23/2024 at 4:24
== END ==
PROVIDERS: Family Provider Family Medicine; PCP Family Medicine; Referring Provider Family Medicine; Visit Provider Family Medicine
DX: M25.551 Pain in right hip (principal); M25.552 Pain in left hip; M16.0 Bilateral primary osteoarthritis of hip
CPT/HCPCS: 73521

== ENCOUNTER → 2024-11-23 08:36 | Outpatient (CLI) | payer OTHER, SELFPAY ==
[2024-11-23 09:26] LABS: Cholesterol 159 mg/dL (140-199); HDL Cholesterol 46 mg/dL (40-60); LDL Cholesterol Calculated 92 mg/dL (<100); Triglycerides 104 mg/dL (35-150)
[2024-11-23 09:56] LABS: Prostate Specific Antigen Scrn 1.09 ng/mL (0.1-4.0)
== END ==
PROVIDERS: Family Provider Family Medicine; PCP Family Medicine; Referring Provider Family Medicine; Visit Provider Family Medicine
DX: E78.2 Mixed hyperlipidemia (principal); Z12.5 Encounter for screening for malignant neoplasm of prostate
CPT/HCPCS: 36415; 80061; G0103